=== PATIENT | male | born 1975 | race African-American/Black ===

== ENCOUNTER → 2020-08-14 09:48 | Outpatient (BNVA) | payer OTHER, SELFPAY | PROVIDERS: PCP Internal Medicine; Visit Provider Surgery | DX: Z48.3 Aftercare following surgery for neoplasm (principal); C34.11 Malignant neoplasm of upper lobe, right bronchus or lung | CPT/HCPCS: 99212 ==

== ENCOUNTER 2020-08-19 17:10 | Emergency (ER) | payer OTHER, SELFPAY ==
[2020-08-19 19:37] VITALS: BP 128/72; PULSE 81; RESP 18; TEMP 37.2; O2SAT 100; BMI 21.9
--- NOTE | 2020-08-19 21:00 | CT_ITS ---
EXAMINATION: CT HEAD WITHOUT CONTRAST CLINICAL INFORMATION: Right face and arm numbness. Status post lobectomy for lung cancer COMPARISON: CT head 07/14/2015 TECHNIQUE: Contiguous axial imaging was performed from the skull base to vertex without intravenous administration of contrast. Coronal and sagittal reformatted images are performed at the CT scanner This CT examination was performed using dose optimization techniques as appropriate, variously including the following: *Automated exposure control *Adjustment of mA and/or kV according to patient size (this includes techniques or standardized protocols for targeted exams where dose is matched to indication/reason for exam; i.e. extremities or head) *Use of iterative reconstruction technique DLP: 655 mGy-cm FINDINGS: There is no evidence of acute intracranial hemorrhage or territorial infarction. No abnormal mass effect or midline shift is seen. Segura to white matter differentiation is well preserved. No extra-axial fluid collections are identified. The ventricles are normal in size. There is no abnormal attenuation within the brain parenchyma. The osseous structures and soft tissues are normal. The mastoid air cells and visualized portions of the paranasal sinuses are well aerated. IMPRESSION: No acute intracranial pathology.
--- NOTE | 2020-08-19 21:04 | ED_ITS ---
HPI - General Adult General Chief complaint: General Medical Stated complaint: numbness Time Seen by Provider: 08/19/20 20:51 Source: patient Mode of arrival: ambulatory Limitations: no limitations History of Present Illness HPI narrative: Patient comes to the emergency room complaining of right-sided face numbness and right upper arm numbness. Patient states he notice that his face and arm were numb yesterday around noon. Patient states that the sensation on his face and arm and different than the rest of his body, no pain, No recent trauma. However, 3 weeks ago patient had a right lung lobectomy for a cancerous nodule. MD complaint: Numbness Onset (ago): day(s) Location: face and upper extremity Radiation: non-radiation Severity: moderate Relieving factors: none Associated symptoms: denies other symptoms Related Data Home Medications Medication Instructions Recorded Confirmed oxycodone 5 mg tablet 5 mg PO Q4H PRN 08/14/20 08/14/20 Allergies Allergy/AdvReac Type Severity Reaction Status Date / Time codeine AdvReac Intermediate PALPITATION Unverified 07/23/20 16:55 [From TYLENOL-CODEINE #3] S tramadol [TRAMADOL] AdvReac Intermediate PALPITATION Unverified 07/23/20 16:55 /SHAKINESS Review of Systems Review of Systems: Constitutional : No Weight loss, No Fever, No Chills, No Night Sweats, No Fatigue, No Malaise ENT/Mouth : No Hearing loss, No Ear Pain, No Nasal Congestion, No Sinus Pain, No Hoarseness, No sore throat, No Rhinorrhea, No Swallowing Difficulty Eyes: No Eye Pain, No Swelling, No Redness, No Foreign Body, No Discharge, No Vision Changes Cardiovascular : No Chest Pain, No SOB, No Dyspnea on Exertion, No Orthopnea, No Edema, No Palpitations Respiratory : No Cough, No Sputum, No Wheezing, No Smoke Exposure, No Dyspnea Gastrointestinal : No Nausea, No Vomiting, No Diarrhea, No Constipation, No abdominal Pain, No Hematochezia, No Melena Genitourinary : no irregular bleeding, No Dysuria, No Urinary Frequency, No Hematuria, No Urinary Incontinence, No Urgency, No Flank Pain, No Urinary Flow Changes, No Hesitancy Musculoskeletal : No joint pain, No Myalgias, No Joint Swelling Skin : No Skin Lesions, No rash Neuro : No Weakness, complaining of numbness, decreased sensation in right side of the face, right upper arm from neck to elbow, and right-sided chest, No Loss of Consciousness, No Dizziness, No Headache. Psych : No Anxiety/Panic, No Depression, No SI/HI/AH/VH, No Social Issues, Heme/Lymph: No Bruising, No Bleeding,No Lymphadenopathy Endocrine : No Polyuria, No Polydipsia, No Temperature Intolerance PMFSH Past Medical History Medical History Anxiety Back pain Injury of quadriceps tendon Pulmonary nodule Smoker Surgical History History of lumbar surgery History of surgical removal of lesion Family History Family History Father No problems noted. Mother Hypertension Hyperlipidemia Asthma Stroke Osteoporosis Social History Social History Smoking Status: Former smoker Tobacco Type: Cigarette Advance Directives: No Advance Directives Information Provided: No Physical Exam Vital Signs: Vital Signs: Vital Signs Temp Pulse Resp BP Pulse Ox 08/19/20 21:23 68 18 102/68 99 08/19/20 19:37 99.0 F 81 18 128/72 100 Body Mass Index 21.9 Appearance: Alert. Oriented X3. No acute distress. Eyes: Pupils equal, round and reactive to light. ENT: Pharynx normal. Neck: Normal inspection. Neck supple. No lymph nodes noted. No crepitus CVS: Normal heart rate and rhythm. Pulses normal. Normal S1 and S2 Respiratory: No respiratory distress. Breath sounds normal. No Wheezing. No rales Abdomen: Soft and nontender. No rigidity. No distention. good BS x4 Skin: Skin warm and dry. Normal skin color. Normal skin turgor. Extremities: No lower extremity edema. No lower extremity edema. No Lacerations. No Rash. Strength at 5/5 in upper and lower extremities bilaterally Neuro: Oriented X 3. No motor deficit. No sensory deficit. Moving all extermities. No slurred speech. Course Reevaluation(s) Reevaluation #1: patient continues having mild numbness in the above-mentioned areas, no worsening symptoms Medical Decision Making MDM Narrative Medical decision making narrative: I discussed with the patient that it is possible that his symptoms may be related to the thoracic surgery he had further lobectomy. At this time, CVA is not suspected. Patient's INRs score is 0, CT scan did not show any pathology that would indicate a CVA. I discussed with the patient, that if he continues having numbness tingling, patient may need a myelogram Lab Data Result diagrams: 08/19/20 21:27 08/19/20 21:27 Labs: Lab Results 08/19/20 08/19/20 08/19/20 Range/Units 21:27 21: 21:27 WBC 5.8 (4.8-10.8) X10*3/uL RBC 4.30 L (4.60-5.80) X10*6/uL Hgb 12.9 L (14.0-18.0) g/dl Hct 39.4 L (42-52) % MCV 91.6 (80-98) fL MCH 30.0 (27.0-33.0) pg MCHC 32.7 (31.0-36.0) g/dl RDW 13.2 (11.0-16.0) % Plt Count 480 H (160-400) X10*3/uL MPV 8.2 L (9.4-12.4) fL Immature Gran % (Auto) 0.2 (0.0-0.4) % Neut % (Auto) 46.4 (45-73) % Lymph % (Auto) 36.7 (20-40) % [place] % (Auto) 9.7 (2-11) % Eos % (Auto) 6.1 H (0-4) % Baso % (Auto) 0.9 (0-2) % Lymph # (Auto) 2.1 (1.2-4.9) X10*3/uL [place] # (Auto) 0.6 (0.1-1.2) X10*3/uL Eos # (Auto) 0.4 (0.0-0.4) X10*3/uL Baso # (Auto) 0.1 (0.0-0.2) X10*3/uL Abs Immat Gran (auto) 0.01 (0.00-0.03) X10*3/uL Absolute Neuts (auto) 2.7 (2.0-8.3) X10*3/uL Absolute Nucleated RBC 0.000 (0.0-0.012) X10*3/uL Nucleated RBC % (auto) 0.0 (0.0-0.2) /100WBC Sodium 140 (135-145) mmol/L Potassium 4.9 (3.3-5.1) mmol/l Chloride 101 (96-108) mmol/L Carbon Dioxide 34 H (22-29) mmol/L Anion Gap 10 L (12-20) BUN 13 (9-16) mg/dL Creatinine 0.83 (0.5-1.4) mg/dL Estim Creat Clear Calc 103.0 Estimated GFR > 60 Random Glucose 84 (60-115) mg/dL Calcium 9.3 (8.4-10.2) mg/dL Magnesium 2.1 (1.6-2.6) mg/dL Total Bilirubin 0.2 (0.0-1.0) mg/dL Direct Bilirubin < 0.2 (0.0-0.5) mg/dL AST 34 (5-37) U/L ALT 59 H (0-40) U/L Alkaline Phosphatase 71 (39-117) U/L Total Protein 7.2 (6.5-8.0) g/dL Albumin 3.9 (3.5-5.0) g/dL Imaging Data CT scan - head: Radiologist's impression: There is no evidence of acute intracranial hemo rrhage or territorial infarction. No abnormal mass effect or midline shift is seen. Segura to white matter differentiation is well preserved. No extra-axial fluid collections are identified. The ventricles are normal in size. There is no abnormal attenuation within the brain parenchyma. The osseous structures and soft tissues are normal. The mastoid air cells and visualized portions of the paranasal sinuses are well aerated Discharge Plan Discharge Clinical Impression: Arm paresthesia, right, Facial paresthesia Patient Disposition: Home, Self-Care Instructions: Paresthesia (ED) Additional Instructions: Please follow-up with your primary care physician tomorrow. If you have any worsening or new symptoms, please return to the emergency room or call 911 Prescriptions: No Action oxycodone 5 mg tablet 5 mg PO Q4H PRN (Reason: pain) RF: 0
[2020-08-19 21:23] VITALS: BP 102/68; PULSE 68; RESP 18; O2SAT 99
[2020-08-19 21:32] LABS: MANUAL DIFF FLAG NO
[2020-08-19 21:34] LABS: Basophils Absolute Auto 0.1 X10*3/uL (0.0-0.2); Basophils Percent Auto 0.9 % (0-2); Eosinophils Absolute Auto 0.4 X10*3/uL (0.0-0.4); Eosinophils Percent Auto 6.1 % (0-4); Hematocrit 39.4 % (42-52); Hemoglobin 12.9 g/dl (14.0-18.0); Imm Gran Abs Auto 0.01 X10*3/uL (0.00-0.03); Imm Gran Pct Auto 0.2 % (0.0-0.4); Lymphocytes Absolute Auto 2.1 X10*3/uL (1.2-4.9); Lymphocytes Percent Auto 36.7 % (20-40); Mean Corpuscular HGB Conc 32.7 g/dl (31.0-36.0); Mean Corpuscular Volume 91.6 fL (80-98); Mean Platelet Volume 8.2 fL (9.4-12.4); Monocytes Absolute Auto 0.6 X10*3/uL (0.1-1.2); Monocytes Percent Auto 9.7 % (2-11); Neutrophils Absolute Auto 2.7 X10*3/uL (2.0-8.3); Neutrophils Percent Auto 46.4 % (45-73); Platelet Count 480 X10*3/uL (160-400); Red Cell Distribution Width 13.2 % (11.0-16.0); White Blood Count 5.8 X10*3/uL (4.8-10.8)
[2020-08-19] MEDS: oxyCODONE HCl ER 10 MG TAB.ER.12H PO (21:35)
--- NOTE | 2020-08-19 21:35 | PC.NURSE ---
management tech at bedside to obtain labs. Pt medicated with Oxy per EMAR, pt reporting 8/10 pain to right side due to recent surgery to remove 1/2 of right lung. Aware of plan to await lab results.
[2020-08-19 22:05] LABS: Magnesium 2.1 mg/dL (1.6-2.6)
[2020-08-19 22:07] LABS: Alanine Aminotransferase 59 U/L (0-40); Albumin Level 3.9 g/dL (3.5-5.0); Alkaline Phosphatase 71 U/L (39-117); Anion Gap 10 (12-20); Aspartate Amino Transferase 34 U/L (5-37); Bilirubin Direct < 0.2 mg/dL (0.0-0.5); Bilirubin Total 0.2 mg/dL (0.0-1.0); Blood Urea Nitrogen 13 mg/dL (9-16); Calcium 9.3 mg/dL (8.4-10.2); Carbon Dioxide 34 mmol/L (22-29); Chloride 101 mmol/L (96-108); Estimated Glomerular Filt Rate > 60; Glucose Random 84 mg/dL (60-115); Potassium 4.9 mmol/l (3.3-5.1); Sodium 140 mmol/L (135-145); Total Protein 7.2 g/dL (6.5-8.0)
[2020-08-19 23:12] VITALS: BP 113/73; PULSE 75; RESP 16
== END 2020-08-19 23:18 | disposition home or self-care (01) ==
PROVIDERS: Emergency Provider Emergency Medicine; PCP Internal Medicine
DX: R20.2 Paresthesia of skin (principal); I10 Essential (primary) hypertension; Z86.73 Personal history of transient ischemic attack (TIA), and cerebral infarction without residual deficits; Z79.899 Other long term (current) drug therapy; Z87.891 Personal history of nicotine dependence
CPT/HCPCS: 36415; 70450; 80048; 80076; 83735; 85025; 99284

== ENCOUNTER 2020-08-28 09:54 | Outpatient (REF) | payer OTHER, SELFPAY ==
--- NOTE | 2020-08-28 10:07 | XR_ITS ---
EXAMINATION: XR CHEST CLINICAL INFORMATION: Malignant neoplasm upper lobe. COMPARISON: CT chest of June 02, 2020 and chest x-ray of April 28, 2019 TECHNIQUE: 2 views of the chest were obtained. FINDINGS: Since previous study patient is status post right lung surgery with suture line in place about the mediastinum and superior chest. There is some elevation of the right hilum. No pneumothorax or pleural effusion. Heart normal size. No evidence of pulmonary edema. XR/XR chest 2V IMPRESSION: Right upper lobe surgery with postoperative change. No acute disease.
== END 2020-08-28 09:55 | disposition home or self-care (01) ==
LOC: HO.XRAY 09:54
PROVIDERS: PCP Internal Medicine; Visit Provider Surgery
DX: C34.11 Malignant neoplasm of upper lobe, right bronchus or lung (principal); M79.2 Neuralgia and neuritis, unspecified
CPT/HCPCS: 71046; 99212

== ENCOUNTER 2020-11-17 08:40 | Outpatient (REF) | payer OTHER, SELFPAY ==
--- NOTE | 2020-11-17 08:56 | XR_ITS ---
EXAMINATION: XR KNEE, LEFT CLINICAL INFORMATION: Left knee pain. COMPARISON: Left knee radiographs dated 11/23/2015. TECHNIQUE: AP weightbearing view of the right and left knee as well as lateral and sunrise views of the left knee. FINDINGS: Minimal medial compartment joint space narrowing. Tiny patellofemoral marginal osteophytes. No osseous erosion. No fracture or dislocation. No significant joint effusion. No abnormal soft tissue calcification. XR/XR knee LT 3V IMPRESSION: Minimal medial and patellofemoral compartment arthrosis.
== END 2020-11-17 08:41 | disposition home or self-care (01) ==
LOC: HO.HOSX 08:40
PROVIDERS: PCP Internal Medicine; Visit Provider Orthopaedic Surgery
DX: M25.562 Pain in left knee (principal); M22.2X2 Patellofemoral disorders, left knee
CPT/HCPCS: 73562; 99202

== ENCOUNTER 2021-01-12 09:10 | Outpatient (REF) | payer OTHER, SELFPAY ==
--- NOTE | ~2021-01-12 | CT_ITS ---
EXAMINATION: CT CHEST WITHOUT CONTRAST CLINICAL INFORMATION: Malignant neoplasm of right upper lobe. COMPARISON: 06/02/[address] scan. Chest radiographs dated 08/28/2020. TECHNIQUE: Multidetector volumetric CT imaging of the chest was done. Axial MIP volume rendering provided. Sagittal and coronal reformatted images were obtained. This CT examination was performed using dose optimization techniques as appropriate, variously including the following: *Automated exposure control *Adjustment of mA and/or kV according to patient size (this includes techniques or standardized protocols for targeted exams where dose is matched to indication/reason for exam; i.e. extremities or head) *Use of iterative reconstruction technique DLP: 139 mGy-cm FINDINGS: LUNGS/PLEURA/AIRWAYS: Right upper lobectomy postsurgical changes are seen. The previously seen irregular lesion in the anterior right upper lobe has been removed. Changes extend to the right hilum without surrounding abnormality. No significant new or suspicious pulmonary nodules seen. Mild left apical scarring is seen. There are no pleural effusions. The airways are patent. MEDIASTINUM: The thyroid gland is unremarkable. The thoracic aorta is within normal limits. No coronary artery calcifications. No pericardial effusion. No mediastinal or hilar lymphadenopathy. Postsurgical changes are seen in the right hilum. AXILLA: No lymphadenopathy. UPPER ABDOMEN: Unremarkable. OSSEOUS STRUCTURES: Unremarkable. CT/CT chest wo con IMPRESSION: Postsurgical changes in the right lung without evidence for residual/recurrent disease. CT follow-up is recommended as per protocol.
== END 2021-01-12 09:11 | disposition home or self-care (01) ==
LOC: HO.CT 09:10
PROVIDERS: Visit Provider Surgery
DX: C34.11 Malignant neoplasm of upper lobe, right bronchus or lung (principal)
CPT/HCPCS: 71250

== ENCOUNTER 2021-02-09 10:56 | Emergency (ER) | payer OTHER, SELFPAY ==
--- NOTE | 2021-02-09 | ECG_ITS ---
Test Reason : CP Blood Pressure : / mmHG Vent. Rate : 078 BPM Atrial Rate : 078 BPM P-R Int : 180 ms QRS Dur : 086 ms QT Int : 350 ms P-R-T Axes : 072 058 058 degrees QTc Int : 399 ms Normal sinus rhythm Normal ECG When compared with ECG of 04-NOV-2019 15:31, No significant change was found Referred By: Mikaela Martínez Electronically Signed By:AMY BRISCOE MD
--- NOTE | ~2021-02-09 | CT_ITS ---
EXAMINATION: CT ABDOMEN AND PELVIS WITH CONTRAST CLINICAL INFORMATION: Abdominal pain. History of cancer. Evaluate for metastatic disease. COMPARISON: Previous CT of the abdomen and pelvis October 2019 TECHNIQUE: Multidetector volumetric images were obtained from the superior aspect of the liver through the pubic symphysis following administration 85 mL of Omnipaque 350 intravenous contrast. Sagittal and coronal reformatted images were obtained on the technologist's workstation. Oral contrast: Yes This CT examination was performed using dose optimization techniques as appropriate, variously including the following: *Automated exposure control *Adjustment of mA and/or kV according to patient size (this includes techniques or standardized protocols for targeted exams where dose is matched to indication/reason for exam; i.e. extremities or head) *Use of iterative reconstruction technique DLP: 256 mGy-cm FINDINGS: LIVER, GALLBLADDER, AND BILIARY TREE: The liver is normal in size, shape, and attenuation. No focal hepatic lesion or biliary ductal dilatation is present. The gallbladder is unremarkable with no evidence of radiopaque gallstones, gallbladder wall thickening, or obvious pericholecystic inflammatory changes. PANCREAS: Unremarkable. SPLEEN: Unremarkable. ADRENAL GLANDS: Unremarkable. KIDNEYS AND URETERS: The kidneys are normal in size, shape, and attenuation. No hydronephrosis, hydroureter, or calculi seen. No perinephric stranding. BLADDER: Unremarkable. GASTROINTESTINAL TRACT: The small and large bowel are unremarkable. The appendix is unremarkable. ABDOMINAL WALL: No significant hernia is appreciated. LYMPH NODES: Normal. VASCULAR: Unremarkable. PELVIC VISCERA: Unremarkable. OSSEOUS STRUCTURES: There are postsurgical changes at the L5-S1 disc space. There is degenerative disc disease at L3-L4. CT/CT abdomen pelvis w con IMPRESSION: Unremarkable exam.
--- NOTE | ~2021-02-09 | CT_ITS ---
EXAMINATION: CT ANGIOGRAM OF THE CHEST WITH AND WITHOUT CONTRAST (CT PULMONARY ANGIOGRAM FOR PE) CLINICAL INFORMATION: Reason for Exam R chest pain/SOB/ho CA, r/o PE COMPARISON: Previous chest CT most recent January 2021 TECHNIQUE: Prior to contrast administration, noncontrast localization images were obtained. Subsequently, multidetector volumetric imaging was performed from the thoracic inlet to below the diaphragms following the administration of 85 mL Omnipaque 350 intravenous contrast. No contrast reaction reported Sagittal, coronal, and MIP oblique sagittal reformatted images were obtained on the CT workstation, uploaded to PACS, and reviewed. This CT examination was performed using dose optimization techniques as appropriate, variously including the following: *Automated exposure control *Adjustment of mA and/or kV according to patient size (this includes techniques or standardized protocols for targeted exams where dose is matched to indication/reason for exam; i.e. extremities or head) *Use of iterative reconstruction technique Total exam dose-length product 255 mGy-cm FINDINGS: QUALITY OF STUDY/CONTRAST BOLUS: Satisfactory. PULMONARY ARTERIES: No central or segmental pulmonary emboli. THORACIC AORTA: No aneurysm or dissection. LUNG: No focal consolidation, nodules or masses. PLEURA: No pleural effusion or pneumothorax. MEDIASTINUM: Normal heart size. No pericardial effusion. No hilar or mediastinal lymphadenopathy. No evidence of septal bowing or right heart strain. CHEST WALL/AXILLA: No axillary or internal mammary lymphadenopathy. OSSEOUS STRUCTURES: No acute or suspicious osseous abnormality. UPPER ABDOMEN: Unremarkable. No reflux of contrast into the hepatic veins to suggest elevated right heart pressures. CT/CT angio chest PE protocol IMPRESSION: No evidence of pulmonary embolism. Postsurgical changes following right upper lobe lobectomy. VTE: negative
[2021-02-09 11:04] VITALS: BP 132/76; PULSE 78; RESP 24; TEMP 36.4; O2SAT 99; BMI 23.1
--- NOTE | 2021-02-09 11:20 | ED.GENADULT ---
HPI - General Adult General Chief complaint: General Medical Stated complaint: rt side abd & chest pain Time Seen by Provider: 02/09/21 11:09 Source: patient Mode of arrival: ambulatory Limitations: no limitations History of Present Illness HPI narrative: 45-year old male with a past medical history of lung cancer status post right upper lobe lobectomy July [address] Randhawa here with complaints of right chest wall pain and diffuse abdominal pain x2 weeks. The patient tells me that he has some dyspnea on exertion which seems to be worsened for him over the last few days. He denies any cough, leg swelling or pain. Denies nausea, vomiting, diarrhea, constipation, urinary symptoms, fevers or chills. Patient tells me that he has an appointment with Dr. Randhawa this Monday for follow-up to discuss his plan for further intervention and/or oncology treatment. Related Data Previous Rx's Medication Instructions Recorded gabapentin 300 mg capsule 300 mg PO TID 30 Days #90 cap 11/11/20 diclofenac sodium 75 mg 75 mg PO BID #60 tab 11/17/20 tablet,delayed release lidocaine [Lidoderm] 1 patch TOPICAL DAILY #15 ea 02/09/21 oxycodone 5 mg PO Q6H PRN #10 tab 02/09/21 Allergies Allergy/AdvReac Type Severity Reaction Status Date / Time codeine AdvReac Intermediate PALPITATION Verified 11/09/20 10:28 [From TYLENOL-CODEINE #3] S tramadol [TRAMADOL] AdvReac Intermediate PALPITATION Verified 11/09/20 10:28 /MICHAEL Review of Systems Review of Systems: Yes all other systems are reviewed and are negative Constitutional: Constitutional: Reports no additional constitutional complaints, Denies body ache(s), Denies chills, Denies fever(s), Denies headache(s) and Denies weakness Eyes: Eyes: Reports no additional eye complaints and Denies change in vision ENT: Reports system reviewed and no additional complaints, except as documented, Denies dizziness, Denies headache(s), Denies nasal congestion, Denies nasal discharge and Denies neck pain Cardiovascular: Cardiovascular: Reports no additional cardiovascular complaints, Reports chest pain, Denies leg edema, Denies dyspnea and Reports dyspnea on exertion Respiratory: Respiratory: Reports no additional respiratory complaints, Denies cough, Denies dyspnea and Reports dyspnea on exertion Gastrointestinal: Gastrointestinal: Reports no additional gastrointestinal complaints, Reports abdominal pain, Denies diarrhea, Denies nausea and Denies vomiting Genitourinary: Genitourinary: Denies urinary incontinence Musculoskeletal: Musculoskeletal: Reports no additional musculoskeletal complaints, Denies back pain, Denies arthralgias, Denies joint swelling, Denies neck pain, Denies numbness and Denies tingling Integumentary/Breasts: Skin/Breast: Reports system reviewed and no additional complaints, except as docu and Denies rash Neurologic: Reports system reviewed and no additional complaints, except as documented, Denies Abnormal speech present, Denies dizziness, Denies headache(s), Denies numbness, Denies tingling and Denies weakness PMFSH Past Medical History Attestation statement: The following information was validated with the patient. Source: old records reviewed Medical History Anxiety Back pain Injury of quadriceps tendon Left knee pain Lumbar degenerative disc disease Pulmonary nodule Smoker Surgical History History of lumbar surgery History of surgical removal of lesion Family History Family History Father No problems noted. Mother Hypertension Hyperlipidemia Asthma Stroke Osteoporosis Social History Social History Smoking Status: Former smoker Tobacco Type: Cigarette Advance Directives: No Advance Directives Information Provided: No Current occupational status: unemployed Current occupation: Right Handed Physical Exam Vital Signs: Vital Signs: Last Vital Signs Temp 97.6 F 02/09/21 11:04 Pulse 76 02/09/21 13:20 Resp 23 H 02/09/21 13:20 BP 113/79 02/09/21 13:20 Pulse Ox 100 02/09/21 13:20 Body Mass Index 23.1 Const: General: cooperative, healthy appearing, comfortable and no acute distress Orientation/consciousness: patient oriented x3 Limitations: no limitations HENMT: Head: Yes normal to inspection Ears: hearing grossly normal bilaterally General nose exam: Normal external nose present Face and sinus: Yes normal facial exam Mouth: Normal oral and palatal mucosa present Throat: Yes posterior oropharynx normal Eyes: General: appearance normal, both eyes and all related structures Pupils: Equal, round and reactive pupils present Neck: Neck: Yes normal visual inspection Chest: Other: Healed surgical incision sites noted to the right chest wall. There is some local tenderness over the right lateral ribs. No ecchymosis, crepitus or deformity. Chest palpation & inspection: normal inspection of the chest Resp: Effort & Inspection: normal respiratory effort Auscultation: clear to auscultation bilaterally Cardio: Rate: regular rate Rhythm: regular rhythm Peripheral pulses: Peripheral pulses 2+ throughout GI: Inspection: Yes normal to inspection Palpation (GI): Soft to palpation and Tenderness to palpation present (GI) (Moderate diffuse tenderness right greater than left) Auscultation: normal bowel sounds Back/Spine/Pelvis: Thoracic/Lumbar Spine: thoracic and lumbar spine normal to inspection Skin: General skin exam: no rashes or lesions noted Neuro: General: patient oriented x3, no focal motor deficits and normal sensation to monofilament Cranial nerves: Yes Equal, round and reactive pupils present Cognition (Neuro): normal cognition Speech: No Abnormal speech present Gait exam (Neuro): Normal gait present Motor exam (neuro): 5/5 motor strength present throughout Extrem: General: Yes normal to inspection Course Course Course Narrative: 45-year-old male with a past history of lung cancer status post lobectomy here with right-sided chest wall pain and diffuse abdominal pain times several weeks with associated dyspnea with exertion. On exam the patient has some mild tachypnea respiratory rate 24 but stable saturations and clear lung sounds. Is diffusely tender in the abdomen although it is soft. Will check labs, UA, COVID screen, CT abdomen/chest. 1530-imaging unremarkable. Was unable to provide a urine sample who is here in the emergency department. COVID screen negative. Labs unremarkable. Patient does report some mild discomfort still when I went to speak to him. On review of chart it looks like he has had chronic pain status post surgery which was thought to be secondary to nerve pain. He tells me he is taking Neurontin 300 mg 3 times a day for the pain but continues to have symptoms. He has a follow-up appointment with Dr. Randhawa this Monday. He is very tearful and concerned about this upcoming appointment as they will go over his biopsy results and determine if he needs to have any further intervention or oncology. He tells me his very overwhelmed at home trying to be strong and tough at home. He tells me he lost both a cousin and uncle in the last year to lung cancer and he is concerned this will be his prognosis. Provided patient re-assurance. We discussed short course of pain medications, topical patchs. Reviewed worrisome signs and symptoms and when to return to the emergency department. Comfortable discharge home. Medical Decision Making MDM Narrative Medical decision making narrative: PE, pneumonia, bridgett, appy Medical Records Medical records reviewed: Yes I reviewed the patient's medical records. Lab Data Lab results reviewed: Yes I reviewed the patient's lab results. Result diagrams: 02/09/21 11:28 02/09/21 11:28 Labs: Lab Results 02/09/21 02/09/21 02/09/21 Range/Units 11:27 11:28 11:28 WBC 5.3 (4.8-10.8) X10*3/uL RBC 4.82 (4.60-5.80) X10*6/uL Hgb 14.2 (14.0-18.0) g/dl Hct 43.5 (42-52) % MCV 90.2 (80-98) fL MCH 29.5 (27.0-33.0) pg MCHC 32.6 (31.0-36.0) g/dl RDW 13.3 (11.0-16.0) % Plt Count 373 (160-400) X10*3/uL MPV 9.0 L (9.4-12.4) fL Immature Gran % (Auto) 0.0 (0.0-0.4) % Neut % (Auto) 51.0 (45-73) % Lymph % (Auto) 30.5 (20-40) % [place] % (Auto) 14.7 H (2-11) % Eos % (Auto) 3.0 (0-4) % Baso % (Auto) 0.8 (0-2) % Lymph # (Auto) 1.6 (1.2-4.9) X10*3/uL [place] # (Auto) 0.8 (0.1-1.2) X10*3/uL Eos # (Auto) 0.2 (0.0-0.4) X10*3/uL Baso # (Auto) 0.0 (0.0-0.2) X10*3/uL Abs Immat Gran (auto) 0.00 (0.00-0.03) X10*3/uL Absolute Neuts (auto) 2.7 (2.0-8.3) X10*3/uL Absolute Nucleated RBC 0.000 (0.0-0.012) X10*3/uL Nucleated RBC % (auto) 0.0 (0.0-0.2) /100WBC PT (10.8-13.0) SEC INR (0.9-1.1) Sodium 140 (135-145) mmol/L Potassium 4.5 (3.3-5.1) mmol/L Chloride 107 (96-108) mmol/L Carbon Dioxide 26 (22-29) mmol/L Anion Gap 12 (12-20) BUN 13 (9-16) mg/dL Creatinine 0.85 (0.5-1.4) mg/dL Estim Creat Clear Calc 103.9 Estimated GFR > 60 Random Glucose 105 (60-115) mg/dL Calcium 9.0 (8.4-10.2) mg/dL Magnesium 2.2 (1.6-2.6) mg/dL Total Bilirubin 0.6 (0.0-1.0) mg/dL Direct Bilirubin 0.2 (0.0-0.5) mg/dL AST 26 (5-37) U/L ALT 45 H (0-40) U/L Alkaline Phosphatase 61 (39-117) U/L Troponin I High Sens (<3.5-35.0) ng/L Total Protein 7.2 (6.5-8.0) g/dL Albumin 4.1 (3.5-5.0) g/dL COVID-19 ([place]) Negative (Negative) COVID-19 Clin Com See Note 02/09/21 02/09/21 Range/Units 11:28 11:28 WBC (4.8-10.8) X10*3/uL RBC (4.60-5.80) X10*6/uL Hgb (14.0-18.0) g/dl Hct (42-52) % MCV (80-98) fL MCH (27.0-33.0) pg MCHC (31.0-36.0) g/dl RDW (11.0-16.0) % Plt Count (160-400) X10*3/uL MPV (9.4-12.4) fL Immature Gran % (Auto) (0.0-0.4) % Neut % (Auto) (45-73) % Lymph % (Auto) (20-40) % [place] % (Auto) (2-11) % Eos % (Auto) (0-4) % Baso % (Auto) (0-2) % Lymph # (Auto) (1.2-4.9) X10*3/uL [place] # (Auto) (0.1-1.2) X10*3/uL Eos # (Auto) (0.0-0.4) X10*3/uL Baso # (Auto) (0.0-0.2) X10*3/uL Abs Immat Gran (auto) (0.00-0.03) X10*3/uL Absolute Neuts (auto) (2.0-8.3) X10*3/uL Absolute Nucleated RBC (0.0-0.012) X10*3/uL Nucleated RBC % (auto) (0.0-0.2) /100WBC PT 12.6 (10.8-13.0) SEC INR 1.1 (0.9-1.1) Sodium (135-145) mmol/L Potassium (3.3-5.1) mmol/L Chloride (96-108) mmol/L Carbon Dioxide (22-29) mmol/L Anion Gap (12-20) BUN (9-16) mg/dL Creatinine (0.5-1.4) mg/dL Estim Creat Clear Calc Estimated GFR Random Glucose (60-115) mg/dL Calcium (8.4-10.2) mg/dL Magnesium (1.6-2.6) mg/dL Total Bilirubin (0.0-1.0) mg/dL Direct Bilirubin (0.0-0.5) mg/dL AST (5-37) U/L ALT (0-40) U/L Alkaline Phosphatase (39-117) U/L Troponin I High Sens < 3.5 (<3.5-35.0) ng/L Total Protein (6.5-8.0) g/dL Albumin (3.5-5.0) g/dL COVID-19 ([place]) (Negative) COVID-19 Clin Com Imaging Data cta chest: Attestation: I personally reviewed and interpreted this imaging study as follows: Radiologist's impression: IMPRESSION: No evidence of pulmonary embolism. Postsurgical changes following right upper lobe lobectomy. CT scan - abdomen: Attestation: I personally reviewed and interpreted this imaging study as follows: Radiologist's impression: CT/CT abdomen pelvis w con IMPRESSION: Unremarkable exam. ECG Data Attestation: I personally reviewed and interpreted this ECG as follows: Interpretation: NSR with rate 78, normal pr, normal qrs, normal qtc Discharge Plan Discharge Clinical Impression: Chest wall pain Patient Disposition: Home, Self-Care Instructions: Chest Wall Pain (ED) Additional Instructions: Keep your appointment on Monday to see the surgeon Prescriptions: New oxycodone 5 mg tablet 5 mg PO Q6H PRN (Reason: pain) Qty: 10 RF: 0 lidocaine [Lidoderm] 5 % adhesive patch,medicated 1 patch topical DAILY Qty: 15 RF: 0 No Action gabapentin 300 mg capsule 300 mg PO TID 30 Days Qty: 90 RF: 3 diclofenac sodium 75 mg tablet,delayed release (DR/EC) 75 mg PO BID Qty: 60 RF: 2 Referrals: Cam Chao MD [Primary Care Provider] - 2 days Interventions: ED Discharge Assessment Last Done: 02/09/21 15:28 Discharge Date/Time: 02/09/21 15:28
[2021-02-09 11:31] LABS: MANUAL DIFF FLAG NO
[2021-02-09] MEDS: Morphine Sulfate 4 MG/ML CARTRIDGE IVPUSH (11:31)
[2021-02-09 11:32] VITALS: BP 111/77; PULSE 82; RESP 25; O2SAT 99
[2021-02-09 11:36] LABS: Basophils Percent Auto 0.8 % (0-2); Eosinophils Absolute Auto 0.2 X10*3/uL (0.0-0.4); Hematocrit 43.5 % (42-52); Hemoglobin 14.2 g/dl (14.0-18.0); Lymphocytes Absolute Auto 1.6 X10*3/uL (1.2-4.9); Lymphocytes Percent Auto 30.5 % (20-40); Mean Corpuscular HGB Conc 32.6 g/dl (31.0-36.0); Mean Corpuscular Hemoglobin 29.5 pg (27.0-33.0); Mean Corpuscular Volume 90.2 fL (80-98); Monocytes Absolute Auto 0.8 X10*3/uL (0.1-1.2); Monocytes Percent Auto 14.7 % (2-11); Neutrophils Absolute Auto 2.7 X10*3/uL (2.0-8.3); Platelet Count 373 X10*3/uL (160-400); Red Blood Count 4.82 X10*6/uL (4.60-5.80); Red Cell Distribution Width 13.3 % (11.0-16.0); White Blood Count 5.3 X10*3/uL (4.8-10.8)
[2021-02-09 11:44] LABS: INTERNATIONAL NORM RATIO 1.1 (0.9-1.1); Prothrombin Time 12.6 SEC (10.8-13.0)
[2021-02-09 11:51] VITALS: BP 114/74; PULSE 85; O2SAT 98
[2021-02-09 11:58] LABS: COVID-19 Test Negative (Negative); IDNOW Serial# 9DD0AD1C
[2021-02-09 12:04] LABS: Alanine Aminotransferase 45 U/L (0-40); Albumin Level 4.1 g/dL (3.5-5.0); Alkaline Phosphatase 61 U/L (39-117); Anion Gap 12 (12-20); Aspartate Amino Transferase 26 U/L (5-37); Bilirubin Direct 0.2 mg/dL (0.0-0.5); Bilirubin Total 0.6 mg/dL (0.0-1.0); Blood Urea Nitrogen 13 mg/dL (9-16); Carbon Dioxide 26 mmol/L (22-29); Chloride 107 mmol/L (96-108); Creatinine Clr Calc Pharmacy 103.9; Estimated Glomerular Filt Rate > 60; Glucose Random 105 mg/dL (60-115); Magnesium 2.2 mg/dL (1.6-2.6); Potassium 4.5 mmol/L (3.3-5.1); Sodium 140 mmol/L (135-145); Total Protein 7.2 g/dL (6.5-8.0)
[2021-02-09 12:10] LABS: Troponin-I High Sensitivity < 3.5 ng/L (<3.5-35.0)
[2021-02-09] MEDS: Ketorolac Tromethamine 30 MG/ML VIAL IVPUSH (13:19)
[2021-02-09 13:20] VITALS: BP 113/79; PULSE 76; RESP 23; O2SAT 100
[2021-02-09] MEDS: iohexoL 350 MG/ML 100 ML INFUS..BTL IV (14:15)
== END 2021-02-09 15:28 | disposition home or self-care (01) ==
PROVIDERS: Nurse Practitioner Family; Emergency Provider Emergency Medicine; PCP Internal Medicine
DX: R07.2 Precordial pain (principal); R10.9 Unspecified abdominal pain; F17.210 Nicotine dependence, cigarettes, uncomplicated; Z20.822 Contact with and (suspected) exposure to COVID-19; Z79.899 Other long term (current) drug therapy; Z71.6 Tobacco abuse counseling
CPT/HCPCS: 36415; 71275; 74177; 80048; 80076; 83735; 84484; 85025; 85610; 87635; 93005; 96361; 96365; 96375; 99284; J1885; J2270; Q9967

== ENCOUNTER → 2021-02-12 10:51 | Outpatient (BNVA) | payer OTHER, SELFPAY | PROVIDERS: PCP Internal Medicine; Visit Provider Surgery | DX: C34.11 Malignant neoplasm of upper lobe, right bronchus or lung (principal); M79.2 Neuralgia and neuritis, unspecified; Z79.899 Other long term (current) drug therapy | CPT/HCPCS: 99212 ==

== ENCOUNTER 2021-04-06 08:34 | Emergency (ER) | payer OTHER, SELFPAY ==
--- NOTE | ~2021-04-06 | XR_ITS ---
EXAMINATION: XR ELBOW, RIGHT CLINICAL INFORMATION: Pain COMPARISON: None TECHNIQUE: AP, lateral, and oblique views of the right elbow. FINDINGS: Bony mineralization is normal. There is no fracture, dislocation, destructive process, or elbow capsular effusion. There is no joint narrowing or erosive change or chondrocalcinosis. There is a borderline spur olecranon without overlying soft tissue swelling. Faint punctate mineralization is present adjacent to the medial epicondyle which may related to focus calcific tendinosis. Clinically correlate. XR/XR elbow RT min 3V IMPRESSION: 1. Borderline olecranon spur. 2. Faint punctate mineralization adjacent to medial epicondyle could be related to bulky calcific tendinosis. Clinically correlate.
[2021-04-06 08:59] VITALS: BP 126/81; PULSE 88; RESP 14; TEMP 37.1; O2SAT 98; BMI 23.4
--- NOTE | 2021-04-06 09:18 | ED.EXTPRO ---
HPI - Extremity Problem General Chief complaint: Extremity Injury, Upper Stated complaint: rt elbow pain Time Seen by Provider: 04/06/21 08:48 History of Present Illness HPI Narrative: Patient complains of right elbow pain worse with certain movements for 3 weeks he may have injured it when he accidentally banged it against a wall in picking something up but is not sure There is no numbness weakness or tingling, no fever and he has been able to continue working and doing all activities with some discomfort Related Data Previous Rx's Medication Instructions Recorded lidocaine [Lidoderm] 1 patch TOPICAL DAILY #15 ea 02/09/21 diclofenac sodium 75 mg 75 mg PO BID PRN 30 Days #60 tab 03/10/21 tablet,delayed release gabapentin 300 mg capsule 300 mg PO TID 30 Days #90 cap 03/10/21 oxycodone 5 mg tablet 5 mg PO Q6-8H PRN 5 Days #10 tab 03/10/21 Allergies Allergy/AdvReac Type Severity Reaction Status Date / Time codeine AdvReac Intermediate PALPITATION Verified 03/10/21 09:34 [From TYLENOL-CODEINE #3] S tramadol [TRAMADOL] AdvReac Intermediate PALPITATION Verified 03/10/21 09:34 /SHAKINESS Review of Systems Review of Systems: Positive for right elbow pain negatives are no fever no chills no dizziness no weakness no fainting no chest pain no shortness of breath no numbness weakness or tingling no skin rash Yes all other systems are reviewed and are negative PMFSH Past Medical History Source: nursing notes reviewed Medical History Anxiety Back pain Erectile dysfunction Injury of quadriceps tendon Left knee pain Lumbar degenerative disc disease Pulmonary nodule Smoker Surgical History History of lumbar surgery History of surgical removal of lesion Family History Family History Father No problems noted. Mother Hypertension Hyperlipidemia Asthma Stroke Osteoporosis Social History Social History Alcohol intake: former Current occupational status: unemployed Current occupation: Right Handed Physical Exam Vital Signs: Vital Signs: Last Vital Signs Temp 98.8 F 04/06/21 08:59 Pulse 88 04/06/21 08:59 Resp 14 04/06/21 08:59 BP 126/81 04/06/21 08:59 Pulse Ox 98 04/06/21 08:59 Body Mass Index 23.4 General appearance no distress Head is normocephalic atraumatic Neck is supple and nontender The respiratory no distress The extremities the right elbow has tenderness, no significant swelling, no redness no warmth and it has a full range of motion with some discomfort on full extension and rotation at the elbow joint Other extremities normal Skin no rashes Course Course Course Narrative: X-ray showed a small bone spur and a small calcium deposit, patient is advised to follow with orthopedist for further evaluation Discharge Plan Discharge Clinical Impression: Right elbow tendinitis Patient Disposition: Home, Self-Care Additional Instructions: Follow with orthopedist for further evaluation and possible steroid shot Return any worse condition or concerns Prescriptions: No Action lidocaine [Lidoderm] 5 % adhesive patch,medicated 1 patch topical DAILY Qty: 15 RF: 0 diclofenac sodium 75 mg tablet,delayed release (DR/EC) 75 mg PO BID PRN (Reason: pain) 30 Days Qty: 60 RF: 3 oxycodone 5 mg tablet 5 mg PO Q6-8H PRN (Reason: pain) 5 Days Qty: 10 RF: 0 gabapentin 300 mg capsule 300 mg PO TID 30 Days Qty: 90 RF: 3 Referrals: Kathy Cardenas MD [Physician] - 2 days (Right elbow tendinitis) Interventions: ED Discharge Assessment Last Done: 04/06/21 09:36 Discharge Date/Time: 04/06/21 09:38
== END 2021-04-06 09:38 | disposition home or self-care (01) ==
PROVIDERS: Emergency Provider Emergency Medicine; PCP Internal Medicine
DX: M25.521 Pain in right elbow (principal); M65.231 Calcific tendinitis, right forearm; Z79.899 Other long term (current) drug therapy
CPT/HCPCS: 73080; 99283

== ENCOUNTER 2021-04-19 07:22 | Outpatient (REF) | payer OTHER, SELFPAY ==
--- NOTE | ~2021-04-19 | XR_ITS ---
EXAMINATION: XR ELBOW, RIGHT CLINICAL INFORMATION: Elbow pain COMPARISON: Radiographs right elbow 04/06/2021 TECHNIQUE: AP, lateral, and oblique views of the right elbow. FINDINGS: There is no fracture, dislocation, or elbow capsular effusion. There is normal bony mineralization. The articular surfaces are intact and there is no joint narrowing or erosive change or chondrocalcinosis. Again, there is a punctate mineralization adjacent to the superior aspect medial epicondyle which may represent small focus calcific tendinosis. XR/XR elbow RT min 3V IMPRESSION: 1. Punctate mineralization adjacent to the medial epicondyle which may represent small focus calcific tendinosis. 2. No joint narrowing or erosive change. No effusion.
== END 2021-04-19 07:23 | disposition home or self-care (01) ==
LOC: HO.HOSX 07:22
PROVIDERS: Visit Provider Physician Assistant
DX: M25.821 Other specified joint disorders, right elbow (principal)
CPT/HCPCS: 73080; 99202

== ENCOUNTER → 2021-05-11 07:50 | Outpatient (BNVA) | payer OTHER, SELFPAY | PROVIDERS: PCP Internal Medicine; Visit Provider Orthopaedic Surgery | DX: M75.42 Impingement syndrome of left shoulder (principal) | CPT/HCPCS: 20610; 99212; J1040 ==

== ENCOUNTER 2021-06-30 09:26 | Outpatient (REF) | payer OTHER, SELFPAY ==
--- NOTE | 2021-06-30 09:30 | EMG_ITS ---
This is a 45-year-old man with a 2-year history of right elbow pain that has increased recently after a fall. PHYSICAL EXAMINATION: On examination, he is alert and oriented with normal intellectual functions. His muscle tone and strength are normal. He has exquisite tenderness in the conjoined tendon of the elbow on the right. IMPRESSION: Tendonitis of the elbow. Rule out nerve entrapment. Nerve conduction EMG study: Normal electrodiagnostic study of the right upper extremity with no evidence of carpal tunnel syndrome or nerve entrapment. Normal EMG of the right C5-T1 innervated muscles. MD MARCELLUS Serna/LINDSEY / [id number]
== END 2021-06-30 09:27 | disposition home or self-care (01) ==
LOC: HO.NEURO 09:26
PROVIDERS: PCP Internal Medicine; Visit Provider Physician Assistant
DX: M79.2 Neuralgia and neuritis, unspecified (principal); M25.521 Pain in right elbow
CPT/HCPCS: 95885; 95910

== ENCOUNTER 2021-07-02 07:46 | Outpatient (REF) | payer OTHER, SELFPAY | END 2021-07-02 07:47 | disposition home or self-care (01) | LOC: HO.LAB 07:46 | PROVIDERS: PCP Internal Medicine; Visit Provider Internal Medicine | DX: Z12.5 Encounter for screening for malignant neoplasm of prostate (principal) | CPT/HCPCS: 36415; 84153 ==

== ENCOUNTER 2021-07-29 09:36 | Outpatient (REF) | payer OTHER, SELFPAY ==
--- NOTE | ~2021-07-29 | CT_ITS ---
EXAMINATION: CT CHEST WITHOUT CONTRAST CLINICAL INFORMATION: Malignant neoplasm of right upper lobe bronchus. COMPARISON: CT chest PE protocol 02/09/2021. TECHNIQUE: Multidetector volumetric CT imaging of the chest was done. Axial MIP volume rendering provided. Sagittal and coronal reformatted images were obtained. This CT examination was performed using dose optimization techniques as appropriate, variously including the following: *Automated exposure control *Adjustment of mA and/or kV according to patient size (this includes techniques or standardized protocols for targeted exams where dose is matched to indication/reason for exam; i.e. extremities or head) *Use of iterative reconstruction technique DLP: 139 mGy-cm. FINDINGS: SPORTS DIRECTOR: Unremarkable. LUNGS: The lungs are well expanded and clear. There are postsurgical changes likely from wedge resection in the right upper lobe. There is a 2 mm nodular density along the major fissure axial image 168/4. Postsurgical scarring versus atelectasis in the right upper lung paramediastinal region adjacent to the mediastinal sutures is noted. MEDIASTINUM: The thyroid lobes are symmetrical and normal. The central trachea and the bronchi are widely patent. The heart size and the great vessels are normal caliber. No abnormal-sized mediastinal or hilar lymph nodes or mass seen. PLEURA: There is no pleural effusion. No pleural mass or thickening. AXILLA: There are small shotty lymph nodes in the axilla. UPPER ABDOMEN: Visualized liver, spleen, pancreas and bilateral adrenal glands are unremarkable. OSSEOUS STRUCTURES: No lytic or sclerotic lesions seen. There is mild ventral dorsal spine spondylosis. CT/CT chest wo con IMPRESSION: Postsurgical changes right upper lobe with loss of right lung volume. Nodular density in the right major fissure, likely small intrafissural lymph node. It is stable. No abnormal new lung nodule seen.
== END 2021-07-29 09:37 | disposition home or self-care (01) ==
LOC: HO.CT 09:36
PROVIDERS: PCP Internal Medicine; Visit Provider Surgery
DX: C34.11 Malignant neoplasm of upper lobe, right bronchus or lung (principal)
CPT/HCPCS: 71250

== ENCOUNTER → 2021-08-13 09:23 | Outpatient (BNVA) | payer OTHER, SELFPAY | PROVIDERS: PCP Internal Medicine; Visit Provider Surgery | DX: C34.11 Malignant neoplasm of upper lobe, right bronchus or lung (principal); Z79.899 Other long term (current) drug therapy; Z79.891 Long term (current) use of opiate analgesic; Z90.2 Acquired absence of lung [part of]; Z87.891 Personal history of nicotine dependence | CPT/HCPCS: 99212 ==

== ENCOUNTER → 2021-09-23 10:32 | Outpatient (BNVA) | payer OTHER, SELFPAY | PROVIDERS: PCP Internal Medicine; Visit Provider Orthopaedic Surgery | DX: M75.42 Impingement syndrome of left shoulder (principal) | CPT/HCPCS: 99212 ==

== ENCOUNTER 2021-10-04 07:16 | Outpatient (REF) | payer OTHER, SELFPAY ==
[2021-10-04 07:22] LABS: MANUAL DIFF FLAG NO
[2021-10-04 07:32] LABS: Basophils Absolute Auto 0.1 X10*3/uL (0.0-0.2); Basophils Percent Auto 0.9 % (0-2); Eosinophils Absolute Auto 0.3 X10*3/uL (0.0-0.4); Eosinophils Percent Auto 5.3 % (0-4); Hematocrit 46.1 % (42.0-52.0); Hemoglobin 14.9 g/dl (14.0-18.0); Imm Gran Abs Auto 0.03 X10*3/uL (0.00-0.03); Imm Gran Pct Auto 0.5 % (0.0-0.4); Lymphocytes Absolute Auto 2.5 X10*3/uL (1.2-4.9); Lymphocytes Percent Auto 38.6 % (20-40); Mean Corpuscular HGB Conc 32.3 g/dl (31.0-36.0); Mean Corpuscular Hemoglobin 29.4 pg (27.0-33.0); Mean Corpuscular Volume 91.1 fL (80.0-98.0); Mean Platelet Volume 8.9 fL (9.4-12.4); Monocytes Absolute Auto 0.7 X10*3/uL (0.1-1.2); Monocytes Percent Auto 11.1 % (2-11); Neutrophils Absolute Auto 2.8 x10*3/uL (2.0-8.3); Neutrophils Percent Auto 43.6 % (45-73); Platelet Count 437 X10*3/uL (160-400); Red Blood Count 5.06 X10*6/uL (4.60-5.80); Red Cell Distribution Width 13.2 % (11.0-16.0); White Blood Count 6.4 X10*3/uL (4.8-10.8)
[2021-10-04 07:56] LABS: Alanine Aminotransferase 33 U/L (0-40); Albumin Level 4.3 g/dL (3.5-5.0); Alkaline Phosphatase 65 U/L (39-117); Anion Gap 13 (12-20); Aspartate Amino Transferase 21 U/L (5-37); Bilirubin Total 0.3 mg/dL (0.0-1.0); Blood Urea Nitrogen 14 mg/dL (9-16); Calcium 9.5 mg/dL (8.4-10.2); Carbon Dioxide 26 mmol/L (22-29); Chloride 105 mmol/L (96-108); Cholesterol 272 mg/dL; Estimated Glomerular Filt Rate > 60; Glucose Fasting 103 mg/dL (60-99); HDL Cholesterol 47 mg/dL; LDL Cholesterol Calculated 170 mg/dl; Potassium 4.2 mmol/L (3.3-5.1); Sodium 140 mmol/L (135-145); Total Protein 7.8 g/dL (6.5-8.0); Triglycerides 276 mg/dL
[2021-10-04 08:16] LABS: Vitamin D 25-OH Total 33.8 ng/mL (>30)
[2021-10-04 09:52] LABS: Appearance Urine CLEAR; Color Urine YELLOW; Glucose Urine UA NEG (NEG); Leukocyte Esterase Urine NEG (NEG); Nitrite Urine NEG (NEG); Specific Gravity - Urine 1.025 (1.005-1.025); Urine Blood NEG (NEG); Urine Ketones NEG (NEG); Urine Protein NEG (NEG-TRACE)
== END 2021-10-04 07:17 | disposition home or self-care (01) ==
LOC: HO.LAB 07:16
PROVIDERS: PCP Internal Medicine; Visit Provider Internal Medicine
DX: Z00.00 Encounter for general adult medical examination without abnormal findings (principal)
CPT/HCPCS: 36415; 80053; 80061; 81003; 82306; 84443; 85025

== ENCOUNTER → 2021-10-08 13:21 | Outpatient (BNVA) | payer OTHER, SELFPAY | PROVIDERS: PCP Internal Medicine; Visit Provider Physician Assistant | DX: M77.11 Lateral epicondylitis, right elbow (principal) | CPT/HCPCS: 20551; 99212; J1020 ==

== ENCOUNTER 2021-10-11 16:59 | Outpatient (REF) | payer OTHER, SELFPAY ==
--- NOTE | ~2021-10-11 | MR_ITS ---
EXAMINATION: MRI SHOULDER WITHOUT CONTRAST, LEFT CLINICAL INFORMATION: Anterior left shoulder pain. Impingement syndrome. COMPARISON: Left shoulder radiographs dated 12/05/2016. TECHNIQUE: Multisequence MR imaging of the left shoulder was obtained without contrast on a high-field strength scanner. FINDINGS: ROTATOR CUFF: Supraspinatus tendinosis with distal bursal surface fraying/partial tearing measuring 1.6 x 1.3 cm (AP by ML). No full-thickness tendon defect. No muscle atrophy or fatty infiltration. BICEPS: Normal. CORACOACROMIAL ARCH: The undersurface of the acromion is curved with no subacromial spur. Moderate acromioclavicular osteoarthritis. LABRUM/CAPSULE: No displaced labral tear. Intact joint capsule. GLENOHUMERAL JOINT/MARROW: Normal. MR/MR shoulder LT wo con IMPRESSION: 1. Supraspinatus tendinosis with distal bursal surface fraying/partial tearing measuring 1.6 x 1.3 cm (AP by ML). 2. Moderate acromioclavicular osteoarthritis.
== END 2021-10-11 17:00 | disposition home or self-care (01) ==
LOC: HO.MRI 16:59
PROVIDERS: PCP Internal Medicine; Visit Provider Orthopaedic Surgery
DX: M75.42 Impingement syndrome of left shoulder (principal)
CPT/HCPCS: 73221

== ENCOUNTER → 2021-10-25 12:34 | Outpatient (BNVA) | payer OTHER, SELFPAY | PROVIDERS: PCP Internal Medicine; Visit Provider Orthopaedic Surgery | DX: M67.912 Unspecified disorder of synovium and tendon, left shoulder (principal); M19.019 Primary osteoarthritis, unspecified shoulder | CPT/HCPCS: 99212 ==

== ENCOUNTER 2021-11-03 07:05 | Day surgery (SDC) | payer OTHER, SELFPAY ==
[2021-11-03] VITALS (10 sets, daily range): BP systolic 110–141; BP diastolic 73–94; PULSE 91–112; RESP 14–17; TEMP 36.2–36.8; O2SAT 92–99; BMI 24.0
--- NOTE | 2021-11-03 08:42 | P.CONAN_ITS ---
[facility] Active Problems Active Problems: All Active Problems (Updated 10/25/21 @ 15:11 by Manfred Dias MD) AC joint arthropathy (Acute) Dysfunction of left rotator cuff (Acute) Lateral epicondylitis, right elbow (Acute) Lumbar back pain with radiculopathy affecting right lower extremity (Acute) Cancer of upper lobe of right lung (Acute ~2019) Smoker (Acute) Pharyngitis (Acute) Erectile dysfunction (Acute) Lumbar degenerative disc disease (Acute) Cervical paraspinal muscle spasm (Acute) Rotator cuff impingement syndrome of left shoulder (Acute) Olecranon impingement syndrome of right elbow (Acute) Elbow pain (Acute) Patellofemoral pain syndrome of left knee (Acute) Left knee pain (Acute) Nerve pain (Acute) Past Medical History Medical History Anxiety Back pain Cancer of upper lobe of right lung (~2019) Erectile dysfunction Left knee pain Lumbar back pain with radiculopathy affecting right lower extremity Lumbar degenerative disc disease Smoker Family History Family History Father No problems noted. Mother Hypertension Hyperlipidemia Asthma Stroke Osteoporosis Family history of problems with anesthesia: No Surgical History Surgical History History of lumbar surgery (~2013) History of surgical removal of lesion Status post partial lobectomy of lung (~07/2020) History of Problems with Anesthesia: No Social History Social History Housing: House Alcohol intake: former Patient Tobacco Use Status: Former Tobacco user Quit Date: 2019 Tobacco use type: Cigarette Years Smoked: 15 Smoked in Last 30 Days: No Second Hand Smoke Exposure: Yes Use of substances other than those prescribed or required for medical reasons: No Are you DNR?: No Advance Directives: No Advance Directives Information Provided: Yes service: No Current occupational status: unemployed and disabled Meds Allergies Allergy/AdvReac Type Severity Reaction Status Date / Time codeine AdvReac Intermediate PALPITATION Verified 11/03/21 07:18 [From TYLENOL-CODEINE #3] S tramadol [TRAMADOL] AdvReac Intermediate PALPITATION Verified 11/03/21 07:18 /SHAKINESS Active Medications: Current Medications Lactated Ringer's (Lr) 1,000 mls @ 100 mls/hr IVCONT .Q10H [facility] Exam Exam Date and Time: November 03, 2021 0842 Height,Weight and Vital Signs: Height 5 ft 8 in Weight 71.668 kg Last Vital Signs Temp 98.3 F 11/03/21 07:39 Pulse 99 11/03/21 07:39 Resp 16 11/03/21 07:39 BP 141/93 H 11/03/21 07:39 Pulse Ox 99 11/03/21 07:39 Airway Mallampati Class: I TM Dist: >3cm Neck ROM: Full Assessment and Plan Assessment Anesthesia Assessment: Anesthesia Plan Discussed and Chart Reviewed Final Anesthetic Review Family History of Problems with Anesthesia: No History of Problems with Anesthesia: No NPO: Yes ASA Class: II Final Preanesthetic Review: No Changes in Pt Med Stat, Meds/Allgs Chart Reviewed, Consent Obtained/Reviewed, Anes Risks/Benef Reviewed and DNR Form (If Appl.) Patient Risk: Low Procedure Risk: Intermediate Anesthetic Plan Anesthetic Plan: GA and Regional Block Disposition: Standard PACU
[2021-11-03] MEDS: Lactated Ringers 1,000 ML 100 ML IVCONT (08:44)
--- NOTE | 2021-11-03 09:45 | MHC.SHP ---
Pre-Procedural Eval Section A Date of Service: 11/03/21 The patient is an INPATIENT: No Changes since office visit: No Cold of Flu in the past 2 weeks, No New Medical Problems, No Changes in Medication and No Patient answered all questions The History & Physical has been completed within 30 days and I have reviewed it.: Yes Section B Chief Complaint: impingment Allergies: Allergies Allergy/AdvReac Type Severity Reaction Status Date / Time codeine AdvReac Intermediate PALPITATION Verified 11/03/21 07:18 [From TYLENOL-CODEINE #3] S tramadol [TRAMADOL] AdvReac Intermediate PALPITATION Verified 11/03/21 07:18 /SHAKINESS Plan I have reviewed the history and physical and performed a pertinent physical examination on my patient. No changes have occurred unless specified.
--- NOTE | 2021-11-03 11:35 | P.BOP_ITS ---
Brief Operative Note Date of Service: 11/03/21 Pre-op diagnosis: left ACJ arthritis Procedure: Distal clavicle excision and sub acromial decompression left shoulder Implants: none Surgeon: Manfred Dias MD Anesthesia: GETA and regional Was an Ordnance Equipment Worker used for this Procedure?: No Estimated blood loss (mL): 20 IV fluids (mL): 1,000 Pathology: none sent Condition: stable Disposition: PACU
[2021-11-03] MEDS: Acetaminophen 325 MG TABLET 650 MG PO (12:20)
[2021-11-03] MEDS: oxyCODONE HCl Immed Release 5 MG TABLET 10 MG PO (12:20)
[2021-11-03] MEDS: fentaNYL citrate/PF 100 MCG/2 ML VIAL 50 MCG IVPUSH ×2 (12:25→12:30)
--- NOTE | 2021-11-17 11:45 | W.PM.OPN ---
Operative Note Operative Note Date of Service: 11/03/21 Narrative: Date of Service: 11/03/21 Pre-op diagnosis: left ACJ arthritis Procedure: Distal clavicle excision and sub acromial decompression left shoulder Implants: none Surgeon: Manfred Dias MD Anesthesia: GETA and regional Was an Legal Administrator used for this Procedure?: No Estimated blood loss (mL): 20 IV fluids (mL): 1,000 Pathology: none sent Condition: stable Disposition: PACU Procedure in detail: Patient was brought to the operating room and placed the the beach chair position. All bony prominences were well padded and the limb was prepped and draped in standard sterile fashion. A time out was called to identify proper site, proper procedure and proper surgeon. IV antibiotics per weight were administered. I began by making a posterolateral stab incision with a 15 blade. A blunt trochar was placed into the glenohumeral joint and I insufflated the joint with saline and a 30 degree arthroscope was placed. I established an outside- in anterior portal just distal to the biceps tendon. I then began my inspection of the glenohumeral joint. There were no cartilage changes. Gutter was clean and there was no undersurface rotator cuff tear. The subscapularis was intact and the biceps was intact. There was fraying of superior labrum which was minimal and this was debrided with the shaver. I then removed the trochar and entered the subacromial space. A direct lateral portal was then established and I performed a bursectomy. The cuff was then examined. There was mild bursal fraying with no undersurface rotator cuff tear. A 5 mm subacromial decompression was performed. I then examined the AC joint and a distal clavicular cartilage was eburnated and arthritic. I then performed a 5 mm distal clavicle excision was performed with a bur through the anterior portal taking caution to preserve the superior ligamentous structures. Once I was satisfied with the extent of bony resection of both the acromion and the distal clavicle all final images were captured and I removed all instrumentation. Portals were closed with nylon. Patient was placed in an abduction sling, extubated and brought to the recovery room in stable condition. There were no known complications.
== END 2021-11-03 13:20 | disposition home or self-care (01) ==
PROVIDERS: PCP Internal Medicine; Visit Provider Orthopaedic Surgery
PROC: (CPT 29805; principal; 2021-11-03 08:50)
DX: M75.42 Impingement syndrome of left shoulder (principal); M19.012 Primary osteoarthritis, left shoulder; M67.912 Unspecified disorder of synovium and tendon, left shoulder; M51.36 Other intervertebral disc degeneration, lumbar region; Z85.118 Personal history of other malignant neoplasm of bronchus and lung; Z79.1 Long term (current) use of non-steroidal anti-inflammatories (NSAID); Z88.8 Allergy status to other drugs, medicaments and biological substances; Z87.891 Personal history of nicotine dependence
CPT/HCPCS: 29824; 29826; 29822; J0171; J0690; J1100; J2250; J2370; J2405; J3010

== ENCOUNTER → 2021-11-08 10:38 | Outpatient (BNVA) | payer OTHER, SELFPAY | PROVIDERS: PCP Internal Medicine; Visit Provider Physician Assistant | DX: M19.012 Primary osteoarthritis, left shoulder (principal); M67.912 Unspecified disorder of synovium and tendon, left shoulder | CPT/HCPCS: 99212 ==

== ENCOUNTER 2021-11-29 18:19 | Emergency (ER) | payer OTHER, SELFPAY ==
--- NOTE | 2021-11-29 | ECG_ITS ---
Test Reason : NUMBNESS Blood Pressure : / mmHG Vent. Rate : 095 BPM Atrial Rate : 095 BPM P-R Int : 184 ms QRS Dur : 084 ms QT Int : 336 ms P-R-T Axes : 055 007 045 degrees QTc Int : 422 ms Normal sinus rhythm Normal ECG When compared with ECG of 09-FEB-2021 11:00, No significant change was found Referred By: Generic ED Physician Electronically Signed By:AMY BRISCOE MD
--- NOTE | ~2021-11-29 | CT_ITS ---
EXAMINATION: CT HEAD WITHOUT CONTRAST CLINICAL INFORMATION: Left facial numbness. Onset at 4:00 PM. COMPARISON: None TECHNIQUE: Contiguous axial imaging was performed from the skull base to vertex without intravenous administration of contrast. This CT examination was performed using dose optimization techniques as appropriate, variously including the following: *Automated exposure control *Adjustment of mA and/or kV according to patient size (this includes techniques or standardized protocols for targeted exams where dose is matched to indication/reason for exam; i.e. extremities or head) *Use of iterative reconstruction technique DLP: 666 mGy-cm FINDINGS: There is no evidence of acute intracranial hemorrhage or territorial infarction. No abnormal mass effect or midline shift is seen. Segura to white matter differentiation is well preserved. No extra-axial fluid collections are identified. The ventricles are normal in size. There is no abnormal attenuation within the brain parenchyma. The osseous structures and soft tissues are normal. The mastoid air cells and visualized portions of the paranasal sinuses are well aerated. CT/CT head/brain wo con IMPRESSION: No acute intracranial process seen.
--- NOTE | ~2021-11-29 | CT_ITS ---
EXAMINATION: CTA OF THE HEAD/NECK CLINICAL INFORMATION: Left-sided loss of sensation since 4:00 PM COMPARISON: Head CT from earlier today. TECHNIQUE: A routine non contrast head CT was performed earlier in the evening. This is followed by a 70 mL bolus of Omnipaque 350. Subsequent multidetector helical imaging was performed of the head and neck. Delayed post contrast imaging was also performed through the head. Multiplanar reformats and MIP were also obtained. Internal carotid artery stenoses are assessed in accordance with NASCET criteria unless otherwise indicated. This CT examination was performed using dose optimization techniques as appropriate, variously including the following: *Automated exposure control *Adjustment of mA and/or kV according to patient size (this includes techniques or standardized protocols for targeted exams where dose is matched to indication/reason for exam; i.e. extremities or head) *Use of iterative reconstruction technique DLP: 1579 mGy-cm. FINDINGS: CT HEAD: There is no evidence of acute intracranial hemorrhage or territorial infarction. No abnormal mass effect or midline shift is seen. Segura to white matter differentiation is well preserved. No extra-axial fluid collections are identified. No suspicious leptomeningeal or parenchymal enhancement on the post-contrast images. No hydrocephalus. No significant volume loss. There is no abnormal attenuation within the brain parenchyma. The osseous structures and soft tissues are normal. The mastoid air cells and visualized portions of the paranasal sinuses are well aerated. CTA NECK: The aortic arch is of normal caliber and the origins of the great vessels are patent without evidence of significant stenosis. Common origin of the innominate artery and left common carotid artery. The cervical portion of the vertebral arteries are patent bilaterally. No luminal irregularities in the common carotid arteries and the carotid bifurcations are patent bilaterally. The cervical portion of the internal carotid arteries are of normal caliber. The laryngeal structures and pharyngeal mucosal spaces are unremarkable. The oral cavity appears normal. The parotid and submandibular glands are normal. No pathologically enlarged lymph nodes. The thyroid gland is unremarkable. The lung apices are clear without evidence of pneumothorax. Spinal alignment is maintained. CTA HEAD: The intradural portion of the vertebral arteries are of normal caliber. The basilar, superior cerebellar, and posterior communicating arteries are patent. The posterior, middle, and anterior cerebral arteries are of normal caliber without evidence of significant luminal irregularity. No definite intracranial aneurysms. CT/CT angio head neck IMPRESSION: 1. No acute intracranial finding. 2. No large vessel occlusion or flow-limiting stenosis.
[2021-11-29 18:32] VITALS: BP 136/87; PULSE 100; RESP 18; TEMP 36.9; O2SAT 100; BMI 23.7
[2021-11-29 18:56] LABS: Basophils Absolute Auto 0.1 X10*3/uL (0.0-0.2); Basophils Percent Auto 1.1 % (0-2); Eosinophils Absolute Auto 0.4 X10*3/uL (0.0-0.4); Eosinophils Percent Auto 6.1 % (0-4); Hematocrit 43.1 % (42.0-52.0); Hemoglobin 14.4 g/dl (14.0-18.0); Imm Gran Abs Auto 0.01 X10*3/uL (0.00-0.03); Imm Gran Pct Auto 0.1 % (0.0-0.4); Lymphocytes Absolute Auto 2.8 X10*3/uL (1.2-4.9); Lymphocytes Percent Auto 40.4 % (20-40); MANUAL DIFF FLAG NO; Mean Corpuscular HGB Conc 33.4 g/dl (31.0-36.0); Mean Corpuscular Hemoglobin 30.1 pg (27.0-33.0); Mean Platelet Volume 8.9 fL (9.4-12.4); Monocytes Absolute Auto 0.8 X10*3/uL (0.1-1.2); Monocytes Percent Auto 11.3 % (2-11); Neutrophils Absolute Auto 2.9 x10*3/uL (2.0-8.3); Platelet Count 402 X10*3/uL (160-400); Red Blood Count 4.79 X10*6/uL (4.60-5.80); Red Cell Distribution Width 13.2 % (11.0-16.0)
[2021-11-29 19:04] LABS: Prothrombin Time 11.8 SEC (9.9-13.0)
[2021-11-29 19:07] LABS: Partial Thromboplastin Time 34.9 SEC (24.1-38.0)
[2021-11-29 19:10] LABS: Anion Gap 12 (12-20); Blood Urea Nitrogen 12 mg/dL (9-16); Calcium 9.6 mg/dL (8.4-10.2); Carbon Dioxide 30 mmol/L (22-29); Chloride 103 mmol/L (96-108); Creatinine Clr Calc Pharmacy 86.5; Estimated Glomerular Filt Rate > 60; Glucose Random 102 mg/dL (60-115); Potassium 4.2 mmol/L (3.3-5.1); Sodium 141 mmol/L (135-145)
[2021-11-29 19:11] LABS: COVID-19 Test Negative (Negative)
--- NOTE | 2021-11-29 19:13 | PC.NURSE ---
MD Avendano made aware of patient status, can line operator aware of patient status.
[2021-11-29 20:42] VITALS: BP 127/86; PULSE 76; RESP 15; O2SAT 99
--- NOTE | 2021-11-29 20:49 | ED_ITS ---
HPI - General Adult General Chief complaint: General Medical Stated complaint: FACE NUMB Time Seen by Provider: 11/29/21 18:45 Source: patient Mode of arrival: ambulatory Limitations: no limitations History of Present Illness HPI narrative: Patient is status post left shoulder rotator cuff surgery 3 weeks ago was doing okay today around 16:00 notice sudden onset of numbness of the left face extending to the left chest no motor weakness no legs involvement no headache never had similar problem in the past no slurred speech Related Data Previous Rx's Medication Instructions Recorded oxycodone 5 mg tablet 5 mg PO Q6-8H PRN 5 Days #10 tab 09/29/21 tizanidine 4 mg tablet 4 mg PO TID PRN 10 Days #30 tab 09/29/21 nabumetone 500 mg tablet 500 mg PO BID PRN 15 Days #30 tab 10/02/21 ibuprofen 800 mg tablet 800 mg PO TID PRN #90 tab 10/25/21 oxycodone-acetaminophen 5 mg-325 1 tab PO Q4H PRN #30 tab 11/03/21 mg tablet (Percocet) Allergies Allergy/AdvReac Type Severity Reaction Status Date / Time codeine AdvReac Intermediate PALPITATION Verified 11/29/21 18:32 [From TYLENOL-CODEINE #3] S tramadol [TRAMADOL] AdvReac Intermediate PALPITATION Verified 11/29/21 18:32 /SHAKINESS Review of Systems Review of Systems: Yes all other systems are reviewed and are negative [facility] Past Medical History Medical History Anxiety Back pain Cancer of upper lobe of right lung (~2019) Erectile dysfunction Left knee pain Lumbar back pain with radiculopathy affecting right lower extremity Lumbar degenerative disc disease Smoker Surgical History History of lumbar surgery (~2013) History of surgical removal of lesion Status post partial lobectomy of lung (~07/2020) Family History Family History Father No problems noted. Mother Hypertension Hyperlipidemia Asthma Stroke Osteoporosis Social History Social History Housing: House Alcohol intake: former Patient Tobacco Use Status: Former Tobacco user Quit Date: 2019 Tobacco use type: Cigarette Years Smoked: 15 Second Hand Smoke Exposure: Yes Advance Directives: No Advance Directives Information Provided: No service: No Current occupational status: unemployed and disabled Physical Exam Vital Signs: Vital Signs: Last Vital Signs Temp 98.5 F 11/29/21 18:32 Pulse 76 11/29/21 20:42 Resp 15 11/29/21 20:42 BP 127/86 11/29/21 20:42 Pulse Ox 99 11/29/21 20:42 BMI result Body Mass Index 23.7 Appearance: Alert. Oriented X3. No acute distress. Eyes: PERRLA, ENT: Pharynx normal. Oral Mucosa moist Neck: Normal inspection. Neck supple. CVS: Normal heart rate and rhythm. Pulses normal. Respiratory: No respiratory distress. Equal air entry bilateral, no wheezing/rales/rhonchi Abdomen: Soft and nontender. Bowel sounds are present, no mass palpable, no CVA tenderness Skin: Skin warm and dry. Normal skin color. Normal skin turgor. Extremities: No lower extremity edema. No calf tenderness Neuro: Oriented X 3. No motor deficit. .No cerebellar signs , decreased sensation to light touch and pinprick on left side of the face all the way to upper part of the left chest normal temperature sensation no motor weakness cranial nerves intact Medical Decision Making MDM Narrative Medical decision making narrative: Patient workup for stroke is negative including CT and CTA no large vessel occlusion patient does have decreased sensation to light touch and pinprick but normal sensation to temperature he can feel the cold ice when placed on the face. Likely paresthesia not stroke meanwhile patient advised to follow with neurologist and take baby aspirin daily Lab Data Lab results reviewed: Yes I reviewed the patient's lab results. Result diagrams: 11/29/21 18:46 11/29/21 18:46 Labs: Lab Results 11/29/21 11/29/21 11/29/21 Range/Units 18:46 18:46 18:46 WBC 7.0 (4.8-10.8) X10*3/uL RBC 4.79 (4.60-5.80) X10*6/uL Hgb 14.4 (14.0-18.0) g/dl Hct 43.1 (42.0-52.0) % MCV 90.0 (80.0-98.0) fL MCH 30.1 (27.0-33.0) pg MCHC 33.4 (31.0-36.0) g/dl RDW 13.2 (11.0-16.0) % Plt Count 402 H (160-400) X10*3/uL MPV 8.9 L (9.4-12.4) fL Immature Gran % (Auto) 0.1 (0.0-0.4) % Neut % (Auto) 41.0 L (45-73) % Lymph % (Auto) 40.4 H (20-40) % [place] % (Auto) 11.3 H (2-11) % Eos % (Auto) 6.1 H (0-4) % Baso % (Auto) 1.1 (0-2) % Lymph # (Auto) 2.8 (1.2-4.9) X10*3/uL [place] # (Auto) 0.8 (0.1-1.2) X10*3/uL Eos # (Auto) 0.4 (0.0-0.4) X10*3/uL Baso # (Auto) 0.1 (0.0-0.2) X10*3/uL Abs Immat Gran (auto) 0.01 (0.00-0.03) X10*3/uL Absolute Neuts (auto) 2.9 (2.0-8.3) x10*3/uL Absolute Nucleated RBC 0.000 (0.0-0.012) X10*3/uL Nucleated RBC % (auto) 0.0 (0.0-0.2) /100WBC ESR (0-15) MM/HR PT 11.8 (9.9-13.0) SEC INR 1.0 (0.9-1.1) APTT 34.9 (24.1-38.0) SEC Sodium 141 (135-145) mmol/L Potassium 4.2 (3.3-5.1) mmol/L Chloride 103 (96-108) mmol/L Carbon Dioxide 30 H (22-29) mmol/L Anion Gap 12 (12-20) BUN 12 (9-16) mg/dL Creatinine 1.01 (0.5-1.4) mg/dL Estim Creat Clear Calc 86.5 Estimated GFR > 60 Random Glucose 102 (60-115) mg/dL Calcium 9.6 (8.4-10.2) mg/dL COVID-19 ([place]) (Negative) COVID-19 Clin Com 11/29/21 11/29/21 Range/Units 18:46 18:46 WBC (4.8-10.8) X10*3/uL RBC (4.60-5.80) X10*6/uL Hgb (14.0-18.0) g/dl Hct (42.0-52.0) % MCV (80.0-98.0) fL MCH (27.0-33.0) pg MCHC (31.0-36.0) g/dl RDW (11.0-16.0) % Plt Count (160-400) X10*3/uL MPV (9.4-12.4) fL Immature Gran % (Auto) (0.0-0.4) % Neut % (Auto) (45-73) % Lymph % (Auto) (20-40) % [place] % (Auto) (2-11) % Eos % (Auto) (0-4) % Baso % (Auto) (0-2) % Lymph # (Auto) (1.2-4.9) X10*3/uL [place] # (Auto) (0.1-1.2) X10*3/uL Eos # (Auto) (0.0-0.4) X10*3/uL Baso # (Auto) (0.0-0.2) X10*3/uL Abs Immat Gran (auto) (0.00-0.03) X10*3/uL Absolute Neuts (auto) (2.0-8.3) x10*3/uL Absolute Nucleated RBC (0.0-0.012) X10*3/uL Nucleated RBC % (auto) (0.0-0.2) /100WBC ESR 4 (0-15) MM/HR PT (9.9-13.0) SEC INR (0.9-1.1) APTT (24.1-38.0) SEC Sodium (135-145) mmol/L Potassium (3.3-5.1) mmol/L Chloride (96-108) mmol/L Carbon Dioxide (22-29) mmol/L Anion Gap (12-20) BUN (9-16) mg/dL Creatinine (0.5-1.4) mg/dL Estim Creat Clear Calc Estimated GFR Random Glucose (60-115) mg/dL Calcium (8.4-10.2) mg/dL COVID-19 ([facility]) Negative (Negative) COVID-19 Clin Com See Note Discharge Plan Discharge Clinical Impression: Paresthesia Patient Disposition: Home, Self-Care Instructions: Paresthesia (ED) Additional Instructions: Take baby aspirin daily Follow with neurologist for further evaluation and treatment No finding of stroke was seen in the CT scan Prescriptions: No Action oxycodone-acetaminophen [Percocet] 5-325 mg tablet 1 tab PO Q4H PRN (Reason: pain) Qty: 30 RF: 0 oxycodone 5 mg tablet 5 mg PO Q6-8H PRN (Reason: pain) 5 Days Qty: 10 RF: 0 tizanidine 4 mg tablet 4 mg PO TID PRN (Reason: muscle spasticity) 10 Days Qty: 30 RF: 1 nabumetone 500 mg tablet 500 mg PO BID PRN (Reason: pain) 15 Days Qty: 30 RF: 3 ibuprofen 800 mg tablet 800 mg PO TID PRN (Reason: pain) Qty: 90 RF: 0 Referrals: Aida Ayala MD [Physician] - 1 week
[2021-11-29] MEDS: Aspirin 81 MG TAB.CHEW 324 MG PO (22:12)
[2021-11-29] MEDS: oxyCODONE HCl Immed Release 5 MG TABLET 10 MG PO (22:13)
[2021-11-29 22:22] LABS: Erythrocyte Sedimentation Rate 4 MM/HR (0-15)
[2021-11-29] MEDS: iohexoL 350 MG/ML 100 ML INFUS..BTL IV (22:44)
--- NOTE | 2021-11-29 23:54 | PC.NURSE ---
I assumed care of this pt upon their arrival to bed 13. The pt presents alert and oriented x 3 for evaluation of L sided facial numbness that began this afternoon.There is n slurred speech. No headache. No unilateral weakness Speech clear and appropriate. I placed an IV on the pt and he was brought to CT. The CT was negative and he has been discharged. The pt verbalized an understanding of all DC orders and he ambulated out of the ED independently and with steady gait.
== END 2021-11-29 23:54 | disposition home or self-care (01) ==
PROVIDERS: Emergency Provider Internal Medicine; PCP Internal Medicine
DX: R20.2 Paresthesia of skin (principal); Z20.822 Contact with and (suspected) exposure to COVID-19; F17.200 Nicotine dependence, unspecified, uncomplicated
CPT/HCPCS: 36415; 70450; 70496; 70498; 80048; 85025; 85610; 85652; 85730; 87635; 93005; 99284; Q9967

== ENCOUNTER 2021-12-02 11:00 | Outpatient (RCR) | payer OTHER, SELFPAY ==
--- NOTE | 2021-11-08 16:21 | MHC.PT.EP ---
[facility] [place] Office [place] Office [place] Office [address] [phone] F: [phone] F: [phone] F: [phone] F: [phone] Physical Therapy Plan of Care Date of Evaluation: Date of Surgery: 11/03/21 Diagnosis: S/P SAD DCE Assessment: CHUCKY IS A PLEASANT 46 YO MALE S/P SAD DCE. UPON EXAM HE DEMONSTRATES THE EXPECTED IMPAIRMENTS IN ROM, STRENGTH AND POSTURE, HE REPORTS INCREASED PAIN AND EDEMA. FUNCTIONAL LIMITATIONS INCLUDE DECREASED ABILITY TO PERFORM HOMEMAKING AND SELF CARE TASKS. HE REPORTS INABIILTY TO PERFORM REACHING, LIFTING, CARRYING, PUSHING AND PULLING . HE REPORTS DISRUPTED SLEEP. Frequency and Duration: The patient will be seen 2 X WEEK FOR 6 WEEKS Short Term Goals: INITIATE HEP AND PROMOTE SELF MANAGEMENT OF SYMPTOMS [facility]ci Goals: Full, pain free ROM in 5 weeks Full UE strength, pain free in 5 weeks To perform computer and work tasks without restriction and pain no greater than 2/10 [address] at minimum of 5# into cabinet at shoulder height in 5 weeks Treatment Plan: Modalities to reduce pain, spasms and effusion. Manual therapy to restore motion and function. Therapeutic exercise to improve strength and flexibility. Neuromuscular re-education for posture and balance. Therapeutic activities to return to functional activities of daily living. Electronically signed by: LUNA ADKINS PT, DPT Please sign and return to therapist. Thank you for your referral.
--- NOTE | 2021-12-31 13:59 | MHC.PT.DC ---
[facility] [place] Office [place] Office [place] Office [address] [place] Atkins [address] [phone] F: [phone] F: [phone] F: [phone] F: [phone] Physical Therapy Discharge Report Diagnosis: S/P SAD DCE Date of Surgery: 11/03/21 Date of Evaluation: 11/08/21 Date of Discharge: 12/02/21 Treatments to Date: 4 Cancellations to Date: 1 No Shows to Date: 3 Discharge Status: Patient Elected to Stop Discharge Summary: At last attended visit pt with increased shoulder pain and continued facial numbness. This PT spoke with Dr. Dias who feels it is probably not related to surgery but we will montior and he will follow up as needed with ortho however he decided not to pursue further PT and did not return for additional visits Electronically signed by: Niya Queen PT, DPT Please sign and return to therapist. Thank you for your referral.
== END 2021-12-31 14:00 | disposition home or self-care (01) ==
LOC: HO.PT 11:00
PROVIDERS: Visit Provider Physician Assistant
DX: M19.012 Primary osteoarthritis, left shoulder (principal); M67.912 Unspecified disorder of synovium and tendon, left shoulder
CPT/HCPCS: 97110; 97140; 97161

== ENCOUNTER → 2022-01-24 13:14 | Outpatient (BNVA) | payer OTHER, SELFPAY | PROVIDERS: PCP Internal Medicine; Visit Provider Physician Assistant | DX: M25.512 Pain in left shoulder (principal); M19.012 Primary osteoarthritis, left shoulder; M54.50 Low back pain, unspecified; M54.12 Radiculopathy, cervical region; F17.210 Nicotine dependence, cigarettes, uncomplicated; Z88.6 Allergy status to analgesic agent; Z79.1 Long term (current) use of non-steroidal anti-inflammatories (NSAID); Z79.891 Long term (current) use of opiate analgesic; Z79.899 Other long term (current) drug therapy | CPT/HCPCS: 99212 ==

== ENCOUNTER 2022-02-03 12:49 | Outpatient (REF) | payer OTHER, SELFPAY ==
--- NOTE | ~2022-02-03 | CT_ITS ---
EXAMINATION: CT CHEST WITHOUT CONTRAST CLINICAL INFORMATION: Malignant neoplasm of the right upper lobe COMPARISON: 07/29/2021. TECHNIQUE: Multidetector volumetric CT imaging of the chest was done. Axial MIP volume rendering provided. Sagittal and coronal reformatted images were obtained. This CT examination was performed using dose optimization techniques as appropriate, variously including the following: *Automated exposure control *Adjustment of mA and/or kV according to patient size (this includes techniques or standardized protocols for targeted exams where dose is matched to indication/reason for exam; i.e. 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 LUNGS: The central airways are patent. Postsurgical changes of right upper lobectomy. There is no dense consolidation. No pneumothorax. There is no suspicious pulmonary nodule. Likely tiny fissural lymph node along the right fissure on series 7 image 164 which is unchanged. MEDIASTINUM: Normal heart size. No pericardial effusion. No mediastinal lymphadenopathy. The thyroid gland is unremarkable. PLEURA: There is no pleural effusion. No pleural mass or thickening. AXILLA: No lymphadenopathy. UPPER ABDOMEN: Unremarkable. OSSEOUS STRUCTURES: No acute or suspicious osseous abnormality. Mild degenerative changes of the spine. CT/CT chest wo con IMPRESSION: No suspicious findings. Postsurgical changes of right upper lobectomy. No suspicious pulmonary nodules. No adenopathy. Fleischner guidelines were followed.
== END 2022-02-03 12:50 | disposition home or self-care (01) ==
LOC: HO.CT 12:49
PROVIDERS: Visit Provider Surgery
DX: C34.11 Malignant neoplasm of upper lobe, right bronchus or lung (principal)
CPT/HCPCS: 71250

== ENCOUNTER 2022-02-18 10:53 | Outpatient (REF) | payer OTHER, SELFPAY ==
--- NOTE | ~2022-02-18 | MR_ITS ---
EXAMINATION: MR CERVICAL SPINE WITHOUT CONTRAST CLINICAL INFORMATION: 46-year-old with complaints of pain, numbness and weakness in left arm and leg of 3 months' duration. Cervical radiculopathy. COMPARISON: None TECHNIQUE: MRI of the cervical spine was obtained using routine sequences without contrast. FINDINGS: ALIGNMENT: The cervical spine is anatomically aligned. There is no spondylolisthesis or significant retrolisthesis. CRANIOCERVICAL JUNCTION/C1-C2 ARTICULATIONS: Intact and aligned. There is a 1.3 cm benign hemangioma in the left lateral mass of C1. VISUALIZED INTRACRANIAL STRUCTURES: Within normal limits. VERTEBRAL BODIES: Normal height. DISC SPACES AND ENDPLATES: There is mild intervertebral disc space height loss at C6-C7. Otherwise the intervertebral disc space heights are well maintained. No significant spondylosis. Endplates appear intact. BONE MARROW: No significant marrow-replacing process or bone marrow edema. C2-C3: No disc herniation. No significant DJD, canal or neural foraminal stenosis. C3-C4: Small central disc protrusion with mild indentation of the ventral thecal sac without cord impingement or canal stenosis. Mild facet arthropathy on the left and mild uncovertebral spurring noted with minimal left-sided foraminal narrowing. C4-C5: Small central disc protrusion with mild indentation of the ventral thecal sac without cord impingement or canal stenosis. Mild right and moderate left-sided facet arthropathy noted without significant neural foraminal stenosis. Small perineural cyst in the left neural foramen. C5-C6: Central disc herniation noted with flattening of the central dural sac without cord impingement or significant canal stenosis. [id number] facet arthropathy noted left more than right without significant neural foraminal stenosis. Small perineural cysts noted in both neural foramina. C6-C7: Broad-based central to left subarticular disc herniation encroaching on the proximal left neural foramen and exiting left C7 nerve root. Slight flattening of the dural sac asymmetric to the left with no significant central spinal canal stenosis. No significant facet arthropathy. [id number] left-sided neural foraminal stenosis noted with possible left-sided uncinate process spurring as well. There is a 7 mm perineural cyst associated with the exiting left C7 nerve root sleeve. Tiny right foraminal perineural cyst. C7-T1: No disc herniation. Mild facet arthropathy on the left. No significant canal or neural foraminal stenosis. Small right lateral disc protrusion at T2-T3 noted. The cervical and visualized upper thoracic spinal cord is normal in morphology, caliber and signal intensity without focal lesion, edema or syrinx. VISUALIZED NECK SOFT TISSUES: Limited assessment. Grossly unremarkable. MR/MR cervical spine wo con IMPRESSION: 1. Discogenic degenerative changes primarily at C6-C7 with broad-based disc herniation asymmetric to the left at this level with left-sided uncovertebral spurring. There is narrowing of the inferior portion of the left neural foramen and there is probable left C7 nerve root impingement as detailed above. 2. Multilevel central disc herniations throughout the remainder of the cervical spine between C3-C4 and C5-C6 inclusive without spinal cord impingement or canal stenosis. 3. Multilevel [id number] degrees of facet arthropathy bilaterally throughout the cervical spine and multilevel bilateral perineural cysts.
== END 2022-02-18 10:54 | disposition home or self-care (01) ==
LOC: HO.MRI 10:53
PROVIDERS: Visit Provider Physician Assistant
DX: M54.12 Radiculopathy, cervical region (principal)
CPT/HCPCS: 72141

== ENCOUNTER → 2022-03-04 09:22 | Outpatient (BNVA) | payer OTHER, SELFPAY | PROVIDERS: PCP Internal Medicine; Visit Provider Surgery | DX: M79.2 Neuralgia and neuritis, unspecified (principal); Z85.118 Personal history of other malignant neoplasm of bronchus and lung | CPT/HCPCS: 99212 ==

== ENCOUNTER → 2022-04-06 09:49 | Outpatient (BNVA) | payer OTHER, SELFPAY | PROVIDERS: PCP Internal Medicine; Visit Provider Nurse Practitioner Family | DX: M19.019 Primary osteoarthritis, unspecified shoulder (principal); M62.838 Other muscle spasm; M25.529 Pain in unspecified elbow; M54.12 Radiculopathy, cervical region; M53.9 Dorsopathy, unspecified | CPT/HCPCS: 99202 ==

== ENCOUNTER 2022-08-12 16:34 | Emergency (ER) | payer OTHER, SELFPAY ==
[2022-08-12 18:28] VITALS: BP 147/81; PULSE 74; RESP 16; TEMP 36.6; O2SAT 99; BMI 23.7
== END 2022-08-13 00:57 | disposition left against medical advice (07) ==
PROVIDERS: Emergency Provider Emergency Medicine; PCP Internal Medicine
DX: M25.552 Pain in left hip (principal)
CPT/HCPCS: 99281

== ENCOUNTER → 2022-09-05 16:38 | Outpatient (BNVA) | payer OTHER, SELFPAY | PROVIDERS: PCP Internal Medicine; Visit Provider Anesthesiology | DX: S12.9XXA Fracture of neck, unspecified, initial encounter (principal); M54.2 Cervicalgia; M62.838 Other muscle spasm; M53.9 Dorsopathy, unspecified | CPT/HCPCS: 99212 ==

== ENCOUNTER 2022-09-06 08:50 | Outpatient (REF) | payer OTHER, SELFPAY ==
--- NOTE | ~2022-09-06 | XR_ITS ---
EXAMINATION: XR CERVICAL SPINE CLINICAL INFORMATION: Neck pain COMPARISON: Cervical spine CT from 2014 and cervical spine MRI February 2022 TECHNIQUE: 6 views of the cervical spine, inclusive of bilateral oblique. Views, were obtained. FINDINGS: Bone alignment is normal. No fracture or dislocation. Degenerative spondylosis and degenerative disc disease at C6-C7. Disc spaces are otherwise normal. Right-sided neuroforaminal narrowing from bony osteophyte at C3-C4 C4-C5 and C5-C6. Left-sided neural foramen are patent. Prevertebral soft tissues are normal. XR/XR cervical spine 5V IMPRESSION: Degenerative changes.
== END 2022-09-06 08:51 | disposition home or self-care (01) ==
LOC: HO.XRAY 08:50
PROVIDERS: PCP Internal Medicine; Visit Provider Anesthesiology
DX: S12.9XXA Fracture of neck, unspecified, initial encounter (principal)
CPT/HCPCS: 72050

== ENCOUNTER → 2022-09-14 07:25 | Outpatient (BNVA) | payer OTHER, SELFPAY | PROVIDERS: PCP Internal Medicine; Visit Provider Physician Assistant | DX: Z12.11 Encounter for screening for malignant neoplasm of colon (principal) | CPT/HCPCS: 99202 ==

== ENCOUNTER → 2022-10-05 16:22 | Outpatient (BNVA) | payer OTHER, SELFPAY | PROVIDERS: PCP Internal Medicine; Visit Provider Anesthesiology | DX: M54.2 Cervicalgia (principal); M62.838 Other muscle spasm; M53.9 Dorsopathy, unspecified; Z85.118 Personal history of other malignant neoplasm of bronchus and lung; Z90.2 Acquired absence of lung [part of] | CPT/HCPCS: 99212 ==

== ENCOUNTER 2022-11-22 11:47 | Emergency (ER) | payer OTHER, SELFPAY ==
--- NOTE | ~2022-11-22 | CT_ITS ---
EXAMINATION: CT ABDOMEN AND PELVIS WITHOUT CONTRAST CLINICAL INFORMATION: Abdominal pain COMPARISON: CT scan abdomen pelvis 02/09/2021 TECHNIQUE: Multidetector volumetric imaging was performed from the superior aspect of the liver through the pubic symphysis. Sagittal and coronal reformatted images were obtained on the technologist's workstation. This CT examination was performed using dose optimization techniques as appropriate, variously including the following: *Automated exposure control *Adjustment of mA and/or kV according to patient size (this includes techniques or standardized protocols for targeted exams where dose is matched to indication/reason for exam; i.e. extremities or head) *Use of iterative reconstruction technique DLP: 458 mGy-cm FINDINGS: LUNG BASES: The visualized lung bases are unremarkable. LIVER, GALLBLADDER, AND BILIARY TREE: The liver is normal in size, shape, and attenuation. No focal hepatic lesion or biliary ductal dilatation is present. The gallbladder is unremarkable with no evidence of radiopaque gallstones, gallbladder wall thickening, or obvious pericholecystic inflammatory changes. PANCREAS: Unremarkable. SPLEEN: Unremarkable. ADRENAL GLANDS: Unremarkable. KIDNEYS AND URETERS: The kidneys are normal in size, shape, and attenuation. No hydronephrosis, hydroureter, or calculi seen. No perinephric stranding. BLADDER: Unremarkable. GASTROINTESTINAL TRACT: The small and large bowel are unremarkable. The appendix is unremarkable. ABDOMINAL WALL: Small fat-containing umbilical hernia LYMPH NODES: Normal. VASCULAR: Unremarkable. PELVIC VISCERA: Unremarkable. OSSEOUS STRUCTURES: Multilevel degenerative spondylosis spine. Orthopedic cages at L5-S1. CT/CT abdomen pelvis wo IV con IMPRESSION: No acute abnormality CT scan abdomen pelvis. Fleischner guidelines were followed.
[2022-11-22 13:18] VITALS: BP 126/83; PULSE 95; RESP 18; TEMP 36.4; O2SAT 98; BMI 23.7
--- NOTE | 2022-11-22 13:19 | ED_ITS ---
HPI - General Adult General Chief complaint: Abdominal Pain Stated complaint: abd pain sent by walk in clinic Time Seen by Provider: 11/22/22 19:18 Related Data Previous Rx's Medication Instructions Recorded celecoxib 100 mg capsule (Celebrex) 100 mg PO BID 30 days #60 caps 09/06/22 bisacodyl 5 mg tablet,delayed 10 mg PO ONCE colonoscopy prep 1 09/14/22 release (Dulcolax (bisacodyl)) day #2 tabs polyethylene glycol 3350 17 238 g PO ONCE 1 day #238 grams 09/14/22 gram/dose oral powder (Miralax) tizanidine 4 mg tablet 6 mg PO TID PRN muscle spasticity 09/26/22 30 days #135 tabs prednisone 20 mg tablet 40 mg PO DAILY 5 days #10 tabs 11/22/22 Allergies Allergy/AdvReac Type Severity Reaction Status Date / Time codeine AdvReac Intermediate PALPITATION Verified 11/22/22 13:17 [From TYLENOL-CODEINE #3] S tramadol [TRAMADOL] AdvReac Intermediate PALPITATION Verified 11/22/22 13:17 /SHAKINESS PMFSH Past Medical History Medical History Anxiety Back pain Cancer of upper lobe of right lung (~2019) Cervical spondylosis with radiculopathy Erectile dysfunction Left knee pain Lumbar back pain with radiculopathy affecting right lower extremity Lumbar degenerative disc disease Smoker Surgical History History of lumbar surgery (~06/17/14) History of surgical removal of lesion Hx of laminectomy (~05/10/22) Hx of left knee surgery Status post partial lobectomy of lung (~07/2020) Status post shoulder surgery (~11/03/21) Family History Family History Father No problems noted. Mother Hypertension Hyperlipidemia Asthma Stroke Osteoporosis Social History Social History Housing: House Alcohol intake: former Patient Tobacco Use Status: Former Tobacco user Quit Date: 2019 Tobacco use type: Cigarette Years Smoked: 15 Second Hand Smoke Exposure: Yes Advance Directives: No Advance Directives Information Provided: Yes service: No Current occupational status: employed Cognitive needs: No Hearing needs: No Vision needs: Yes Physical Exam ED Vital Signs: Vital Signs - 24 hr 11/22/22 13:18 Temperature 97.5 F Pulse Rate 95 Respiratory Rate 18 Blood Pressure 126/83 Pulse Oximetry 98 Oxygen Delivery Method Room Air BMI result Body Mass Index 23.7 Course Course Course Narrative: RME: 47 yold sent to the ED RLQ pain. Labs and CT scan imaging ordered. patient well appearing Medical Decision Making Lab Data 11/22/22 13:34 11/22/22 13:34 Labs: Lab Results 11/22/22 11/22/22 Range/Units 13:34 13:34 WBC 6.5 (4.8-10.8) X10*3/uL RBC 5.12 (4.60-5.80) X10*6/uL Hgb 15.2 (14.0-18.0) g/dl Hct 45.3 (42.0-52.0) % MCV 88.5 (80.0-98.0) fL MCH 29.7 (27.0-33.0) pg MCHC 33.6 (31.0-36.0) g/dl RDW 13.2 (11.0-16.0) % Plt Count 395 (160-400) X10*3/uL MPV 8.7 L (9.4-12.4) fL Immature Gran % (Auto) 0.2 (0.0-0.4) % Neut % (Auto) 60.5 (45-73) % Lymph % (Auto) 24.7 (20-40) % [place] % (Auto) 8.8 (2-11) % Eos % (Auto) 4.6 H (0-4) % Baso % (Auto) 1.2 (0-2) % Lymph # (Auto) 1.6 (1.2-4.9) X10*3/uL [place] # (Auto) 0.6 (0.1-1.2) X10*3/uL Eos # (Auto) 0.3 (0.0-0.4) X10*3/uL Baso # (Auto) 0.1 (0.0-0.2) X10*3/uL Abs Immat Gran (auto) 0.01 (0.00-0.03) X10*3/uL Absolute Neuts (auto) 3.9 (2.0-8.3) x10*3/uL Absolute Nucleated RBC 0.000 (0.0-0.012) X10*3/uL Nucleated RBC % (auto) 0.0 (0.0-0.2) /100WBC Sodium 141 (135-145) mmol/L Potassium 4.8 (3.3-5.1) mmol/L Chloride 103 (96-108) mmol/L Carbon Dioxide 30 H (22-29) mmol/L Anion Gap 13 (12-20) BUN 18 H (9-16) mg/dL Creatinine 0.86 (0.5-1.4) mg/dL Estim Creat Clear Calc 100.5 Estimated GFR > 60 Random Glucose 105 (60-115) mg/dL Calcium 10.0 (8.4-10.2) mg/dL Magnesium 2.3 (1.6-2.6) mg/dL Total Bilirubin 0.3 (0.0-1.0) mg/dL AST 22 (5-37) U/L ALT 21 (0-40) U/L Alkaline Phosphatase 60 (39-117) U/L Total Protein 8.1 H (6.5-8.0) g/dL Albumin 4.7 (3.5-5.0) g/dL Discharge Plan Discharge Clinical Impression: Abdominal pain Patient Disposition: Home, Self-Care Instructions: Abdominal Pain (ED) Additional Instructions: As we discussed, your pain sounds most consistent with a muscular strain of your abdomen. However, the kidney stone is another consideration. You declined to remain in the emergency department to have urine testing sent. At this time you were discharged home, you should follow-up with your primary care provider within 2-3 days for persistent symptoms. You may return back to the emergency department with any new or worsening symptoms or concerns. You can take ibuprofen 200 mg, 3 tablets (600mg) every 6-8 hours as needed for pain, in addition to Tylenol 500 mg, 2 tablets (1,000mg) every 4-6 hours as needed for pain, but not to exceed 3 doses daily (3,000mg).? Prescriptions: No Action tizanidine 4 mg tablet 6 mg PO TID PRN (Reason: muscle spasticity) 30 Days Qty: 135 2RF prednisone 20 mg tablet 40 mg PO DAILY 5 Days Qty: 10 0RF celecoxib [Celebrex] 100 mg capsule 100 mg PO BID 30 Days Qty: 60 8RF Rx Instructions: Do not take ibuprofen to take this medication. bisacodyl [Dulcolax (bisacodyl)] 5 mg tablet,delayed release (DR/EC) 10 mg PO ONCE 1 Days Qty: 2 0RF Rx Instructions: Take 2 tablets by mouth at 12:00pm the day before your procedure. polyethylene glycol 3350 [Miralax] 17 gram/dose powder 238 g PO ONCE 1 Days Qty: 238 0RF Rx Instructions: Take as directed by mouth the day before your procedure. Referrals: Cam Chao MD [Primary Care Provider] - Stand Alone Forms: Work/School Release
[2022-11-22 13:38] LABS: MANUAL DIFF FLAG NO
[2022-11-22 13:40] LABS: Basophils Absolute Auto 0.1 X10*3/uL (0.0-0.2); Basophils Percent Auto 1.2 % (0-2); Eosinophils Absolute Auto 0.3 X10*3/uL (0.0-0.4); Eosinophils Percent Auto 4.6 % (0-4); Hematocrit 45.3 % (42.0-52.0); Hemoglobin 15.2 g/dl (14.0-18.0); Imm Gran Abs Auto 0.01 X10*3/uL (0.00-0.03); Imm Gran Pct Auto 0.2 % (0.0-0.4); Lymphocytes Absolute Auto 1.6 X10*3/uL (1.2-4.9); Lymphocytes Percent Auto 24.7 % (20-40); Mean Corpuscular HGB Conc 33.6 g/dl (31.0-36.0); Mean Corpuscular Hemoglobin 29.7 pg (27.0-33.0); Mean Corpuscular Volume 88.5 fL (80.0-98.0); Mean Platelet Volume 8.7 fL (9.4-12.4); Monocytes Absolute Auto 0.6 X10*3/uL (0.1-1.2); Monocytes Percent Auto 8.8 % (2-11); Neutrophils Absolute Auto 3.9 x10*3/uL (2.0-8.3); Neutrophils Percent Auto 60.5 % (45-73); Platelet Count 395 X10*3/uL (160-400); Red Blood Count 5.12 X10*6/uL (4.60-5.80); Red Cell Distribution Width 13.2 % (11.0-16.0); White Blood Count 6.5 X10*3/uL (4.8-10.8)
[2022-11-22 14:01] LABS: Alanine Aminotransferase 21 U/L (0-40); Albumin Level 4.7 g/dL (3.5-5.0); Alkaline Phosphatase 60 U/L (39-117); Anion Gap 13 (12-20); Aspartate Amino Transferase 22 U/L (5-37); Bilirubin Total 0.3 mg/dL (0.0-1.0); Blood Urea Nitrogen 18 mg/dL (9-16); Carbon Dioxide 30 mmol/L (22-29); Chloride 103 mmol/L (96-108); Creatinine Clr Calc Pharmacy 100.5; Estimated Glomerular Filt Rate > 60; Glucose Random 105 mg/dL (60-115); Magnesium 2.3 mg/dL (1.6-2.6); Potassium 4.8 mmol/L (3.3-5.1); Sodium 141 mmol/L (135-145); Total Protein 8.1 g/dL (6.5-8.0)
[2022-11-22 19:57] VITALS: BP 139/83; PULSE 88; RESP 16; TEMP 36.6; O2SAT 98
--- NOTE | 2022-11-22 19:59 | PC.NURSE ---
patient a&ox3, pt workup negative, provider at bedside to discharge patient. vss.
--- NOTE | 2022-11-22 20:02 | ED.ABDPAIN ---
HPI - Abdominal Pain General Chief Complaint: Abdominal Pain Stated Complaint: abd pain sent by walk in clinic Time Seen by Provider: 11/22/22 19:18 Source: patient Mode of arrival: ambulatory Limitations: no limitations History of Present Illness HPI narrative: Patient is a 47-year-old male presents emergency department for evaluation of right lower quadrant abdominal pain. Reports onset of pain 2 days ago, not worsening but has not improved. He states that the pain is made worse with particular movements such as bending forward or position changing. Denies associated fevers, chills, nausea, vomiting, upper or left-sided abdominal pain, constipation, diarrhea, dysuria, hematuria, urinary frequency/urgency/hesitancy. Denies any history of similar pain in the past. He was evaluated at urgent care prior to arrival, and was referred to the emergency department for further evaluation. Related Data Previous Rx's Medication Instructions Recorded celecoxib 100 mg capsule (Celebrex) 100 mg PO BID 30 days #60 caps 09/06/22 bisacodyl 5 mg tablet,delayed 10 mg PO ONCE colonoscopy prep 1 09/14/22 release (Dulcolax (bisacodyl)) day #2 tabs polyethylene glycol 3350 17 238 g PO ONCE 1 day #238 grams 09/14/22 gram/dose oral powder (Miralax) tizanidine 4 mg tablet 6 mg PO TID PRN muscle spasticity 09/26/22 30 days #135 tabs prednisone 20 mg tablet 40 mg PO DAILY 5 days #10 tabs 11/22/22 Allergies Allergy/AdvReac Type Severity Reaction Status Date / Time codeine AdvReac Intermediate PALPITATION Verified 11/22/22 13:17 [From TYLENOL-CODEINE #3] S tramadol [TRAMADOL] AdvReac Intermediate PALPITATION Verified 11/22/22 13:17 /SHAKINESS Review of Systems Review of Systems Constitutional : No Weight loss, No Fever, No Chills ENT/Mouth :? No sore throat, No Rhinorrhea Eyes: No Swelling, No Redness Cardiovascular : No Chest Pain, No SOB, No Edema Respiratory : No Cough, No Sputum, No Wheezing Gastrointestinal : No Nausea, no Vomiting, no Diarrhea, positive abdominal pain, No Hematochezia, No Melena Genitourinary : No Dysuria, No Urinary Frequency, No Hematuria, No Urgency? Musculoskeletal : No joint pain, No Myalgias, No Joint Swelling Skin : No Skin Lesions, No rash Neuro : No Weakness, No Numbness, No Dizziness, No Headache Psych : No Anxiety/Panic, No Depression Heme/Lymph: No Bruising, No Lymphadenopathy Endocrine : No Polyuria, No Polydipsia Yes all other systems are reviewed and are negative [facility] Past Medical History Attestation statement: The following information was validated with the patient. Source: old records reviewed Medical History Anxiety Back pain Cancer of upper lobe of right lung (~2019) Cervical spondylosis with radiculopathy Erectile dysfunction Left knee pain Lumbar back pain with radiculopathy affecting right lower extremity Lumbar degenerative disc disease Smoker Surgical History History of lumbar surgery (~06/17/14) History of surgical removal of lesion Hx of laminectomy (~05/10/22) Hx of left knee surgery Status post partial lobectomy of lung (~07/2020) Status post shoulder surgery (~11/03/21) Family History Family History Father No problems noted. Mother Hypertension Hyperlipidemia Asthma Stroke Osteoporosis Social History Social History Housing: House Alcohol intake: former Patient Tobacco Use Status: Former Tobacco user Quit Date: 2019 Tobacco use type: Cigarette Years Smoked: 15 Second Hand Smoke Exposure: Yes Advance Directives: No Advance Directives Information Provided: Yes service: No Current occupational status: employed Cognitive needs: No Hearing needs: No Vision needs: Yes Physical Exam ED Vital Signs: Vital Signs - 24 hr 11/22/22 13:18 11/22/22 19:57 Temperature 97.5 F 98 F Pulse Rate 95 88 Respiratory Rate 18 16 Blood Pressure 126/83 139/83 Pulse Oximetry 98 98 Oxygen Delivery Method Room Air Room Air BMI result Body Mass Index 23.7 Appearance: Alert.?Oriented to person, place and time. No acute distress.?Normal affect. Eyes: Pupils equal, round and reactive to light.? ENT: Pharynx normal.?? Neck: Normal inspection.? Neck supple.?? CVS: Heart sounds normal. Normal heart rate and rhythm.? Pulses normal.?? Respiratory: No respiratory distress.? Lung sounds clear to auscultation bilaterally?? Abdomen: Soft with mild tenderness in the right lower quadrant upon palpation, no rebound tenderness, negative Rovsing sign, psoas sign, obturator's sign.. Normoactive bowel sounds. No CVA tenderness? Skin: Skin warm and dry.? Normal skin color.? Extremities: No lower extremity edema.? Neuro: Moves all extremities spontaneously. Sensation intact bilaterally. . No focal neuro deficits. Ambulates with normal steady gait. Course Reevaluation(s) Reevaluation #1: CBC and CMP are overall unremarkable. Patient did not provide urinalysis, declines to remain in the emergency department for urine testing, he is asymptomatic of genitourinary complaints. A CT of the abdomen pelvis without evidence of acute pathology. At this time pain appears most consistent with musculoskeletal nature. Advised rest, ice/heat, acetaminophen/ibuprofen, reviewed worrisome signs and symptoms of warrant re-evaluation in the emergency department. Advised outpatient follow-up with primary care provider within the next 3 days for persistent symptoms. All questions answered. Departed in stable condition. Medical Decision Making Medical Decision Making [facility] Narrative: Patient is a 47-year-old male with past medical history of cervicalgia, cervical radiculopathy, lumbar degenerative disc disease, presented to the emergency department for evaluation of right lower abdominal pain. Abdominal examination prominent for mild tenderness upon palpation and right lower quadrant, however no rebound tenderness, no rigidity or guarding, does not appear consistent with acute abdomen. Will obtain CBC to evaluate for leukocytosis/ anemia, CMP to evaluate for abnormal electrolytes /abnormal renal function/ abnormal hepaticfunction, CT of the abdomen and pelvis to evaluate for appendicitis, colitis, diverticulitis, bowel obstruction, nephrolithiasis, hydronephrosis, obstructive urinary stone, pyelonephritis. and will obtain Urinalysis. Differential Diagnosis Differential Diagnoses: The differential diagnosis associated with the presentation includes (As noted above) Lab Data [facility] Lab Attestation statement: I reviewed the patient's lab results. 11/22/22 13:34 11/22/22 13:34 Labs: Lab Results 11/22/22 11/22/22 Range/Units 13:34 13:34 WBC 6.5 (4.8-10.8) X10*3/uL RBC 5.12 (4.60-5.80) X10*6/uL Hgb 15.2 (14.0-18.0) g/dl Hct 45.3 (42.0-52.0) % MCV 88.5 (80.0-98.0) fL MCH 29.7 (27.0-33.0) pg MCHC 33.6 (31.0-36.0) g/dl RDW 13.2 (11.0-16.0) % Plt Count 395 (160-400) X10*3/uL MPV 8.7 L (9.4-12.4) fL Immature Gran % (Auto) 0.2 (0.0-0.4) % Neut % (Auto) 60.5 (45-73) % Lymph % (Auto) 24.7 (20-40) % [place] % (Auto) 8.8 (2-11) % Eos % (Auto) 4.6 H (0-4) % Baso % (Auto) 1.2 (0-2) % Lymph # (Auto) 1.6 (1.2-4.9) X10*3/uL [place] # (Auto) 0.6 (0.1-1.2) X10*3/uL Eos # (Auto) 0.3 (0.0-0.4) X10*3/uL Baso # (Auto) 0.1 (0.0-0.2) X10*3/uL Abs Immat Gran (auto) 0.01 (0.00-0.03) X10*3/uL Absolute Neuts (auto) 3.9 (2.0-8.3) x10*3/uL Absolute Nucleated RBC 0.000 (0.0-0.012) X10*3/uL Nucleated RBC % (auto) 0.0 (0.0-0.2) /100WBC Sodium 141 (135-145) mmol/L Potassium 4.8 (3.3-5.1) mmol/L Chloride 103 (96-108) mmol/L Carbon Dioxide 30 H (22-29) mmol/L Anion Gap 13 (12-20) BUN 18 H (9-16) mg/dL Creatinine 0.86 (0.5-1.4) mg/dL Estim Creat Clear Calc 100.5 Estimated GFR > 60 Random Glucose 105 (60-115) mg/dL Calcium 10.0 (8.4-10.2) mg/dL Magnesium 2.3 (1.6-2.6) mg/dL Total Bilirubin 0.3 (0.0-1.0) mg/dL AST 22 (5-37) U/L ALT 21 (0-40) U/L Alkaline Phosphatase 60 (39-117) U/L Total Protein 8.1 H (6.5-8.0) g/dL Albumin 4.7 (3.5-5.0) g/dL Radiology Impression Discussion of test interpretation with radiology: I have reviewed the radiologist's reading. Radiologist Impression: CT/CT abdomen pelvis wo IV con IMPRESSION: No acute abnormality CT scan abdomen pelvis. ? Fleischner guidelines were followed. Prescription Management I considered prescription management with: Pain Medication Discharge Plan Discharge Clinical Impression: Abdominal pain Patient Disposition: Home, Self-Care Instructions: Abdominal Pain (ED) Additional Instructions: As we discussed, your pain sounds most consistent with a muscular strain of your abdomen. At this time you were discharged home, you should follow-up with your primary care provider within 2-3 days for persistent symptoms. You may return back to the emergency department with any new or worsening symptoms or concerns. You can take ibuprofen 200 mg, 3 tablets (600mg) every 6-8 hours as needed for pain, in addition to Tylenol 500 mg, 2 tablets (1,000mg) every 4-6 hours as needed for pain, but not to exceed 3 doses daily (3,000mg).? Prescriptions: No Action tizanidine 4 mg tablet 6 mg PO TID PRN (Reason: muscle spasticity) 30 Days Qty: 135 2RF prednisone 20 mg tablet 40 mg PO DAILY 5 Days Qty: 10 0RF celecoxib [Celebrex] 100 mg capsule 100 mg PO BID 30 Days Qty: 60 8RF Rx Instructions: Do not take ibuprofen to take this medication. bisacodyl [Dulcolax (bisacodyl)] 5 mg tablet,delayed release (DR/EC) 10 mg PO ONCE 1 Days Qty: 2 0RF Rx Instructions: Take 2 tablets by mouth at 12:00pm the day before your procedure. polyethylene glycol 3350 [Miralax] 17 gram/dose powder 238 g PO ONCE 1 Days Qty: 238 0RF Rx Instructions: Take as directed by mouth the day before your procedure. Referrals: Cam Chao MD [Primary Care Provider] - Stand Alone Forms: Work/School Release Interventions: ED Discharge Assessment Last Done: 11/22/22 19:59 Discharge Date/Time: 11/22/22 20:00
== END 2022-11-22 20:00 | disposition home or self-care (01) ==
PROVIDERS: Physician Assistant Medical; Emergency Provider Emergency Medicine Emergency Medical Services; PCP Internal Medicine
DX: R10.31 Right lower quadrant pain (principal); Z79.899 Other long term (current) drug therapy; Z87.891 Personal history of nicotine dependence
CPT/HCPCS: 36415; 74176; 80053; 83735; 85025; 99283; 99284

== ENCOUNTER 2023-02-16 13:16 | Outpatient (REF) | payer OTHER, SELFPAY ==
[2023-02-16 14:30] LABS: Influenza A PCR POSITIVE (Negative); Influenza B PCR NEGATIVE (Negative); Resp Syncy Virus RNA Qual PCR NEGATIVE (Negative); SARS COV2 PCR INHOUSE NEGATIVE (Negative)
== END 2023-02-16 13:17 | disposition home or self-care (01) ==
LOC: HO.LNP 13:16
PROVIDERS: Visit Provider Internal Medicine
DX: R09.89 Other specified symptoms and signs involving the circulatory and respiratory systems (principal); Z20.822 Contact with and (suspected) exposure to COVID-19
CPT/HCPCS: 0241U

== ENCOUNTER 2023-02-28 15:03 | Outpatient (REF) | payer OTHER, SELFPAY ==
--- NOTE | ~2023-02-28 | CT_ITS ---
EXAMINATION: CT CHEST WITHOUT CONTRAST CLINICAL INFORMATION: Malignant neoplasm right upper lobe COMPARISON: Previous chest CT most recent January 2022 TECHNIQUE: Multidetector volumetric CT imaging of the chest was done. Axial MIP volume rendering provided. Sagittal and coronal reformatted images were obtained. This CT examination was performed using dose optimization techniques as appropriate, variously including the following: *Automated exposure control *Adjustment of mA and/or kV according to patient size (this includes techniques or standardized protocols for targeted exams where dose is matched to indication/reason for exam; i.e. extremities or head) *Use of iterative reconstruction technique DLP: 161 mGy-cm FINDINGS: LUNGS: Stable postsurgical changes following right upper lobe lobectomy. Mild left apical pleural and parenchymal scarring. The lungs are otherwise clear. MEDIASTINUM: The mediastinum is normal. CORONARY ARTERY CALCIFICATION: None visualized on this study. PLEURA: There is no pleural effusion. No pleural mass or thickening. AXILLA: No lymphadenopathy. UPPER ABDOMEN: Unremarkable. OSSEOUS STRUCTURES: Unremarkable. CT/CT chest wo IV con IMPRESSION: Stable postsurgical changes following right upper lobe lobectomy. Stable pleural-parenchymal scarring at the left lung apex. Fleischner guidelines were followed.
== END 2023-02-28 15:04 | disposition home or self-care (01) ==
LOC: HO.CT 15:03
PROVIDERS: PCP Internal Medicine; Visit Provider Surgery
DX: C34.11 Malignant neoplasm of upper lobe, right bronchus or lung (principal)
CPT/HCPCS: 71250

== ENCOUNTER → 2023-03-03 09:43 | Outpatient (BNVA) | payer OTHER, SELFPAY | PROVIDERS: PCP Internal Medicine; Visit Provider Surgery | DX: C34.11 Malignant neoplasm of upper lobe, right bronchus or lung (principal) | CPT/HCPCS: 99212 ==

== ENCOUNTER 2023-04-10 15:45 | Outpatient (AMB) | payer OTHER, SELFPAY ==
[2023-04-10 15:46] VITALS: BP 142/84; PULSE 88; O2SAT 99; BMI 23.6
--- NOTE | 2023-04-10 15:46 | MHC.PC.OV ---
Vital Signs 04/10/23 15:46 Height 5 ft 8 in Weight 155 lb BMI 23.6 BP 142/84 H Blood Pressure Location Lt brachial Position Sitting Pulse 88 Pulse Source Pulse Oximeter Temp Source Skin Pulse Oximetry (%) 99 Oxygen Delivery Method Room Air Intake Visit Reasons: tabacco abuse , hypercholesterol, Lumbar DDD Diesel Dinkey Operator Required: No Allergies codeine [From TYLENOL-CODEINE #3] Adverse Reaction (Intermediate, Verified 06/22/23 09:02) PALPITATIONS tramadol [TRAMADOL] Adverse Reaction (Intermediate, Verified 06/22/23 09:02) PALPITATION/SHAKINESS Medication List - Last Reconciled 04/10/23 by aCm Choa MD bisacodyl (Dulcolax (bisacodyl)) 10 mg (2 x 5 mg) PO ONCE 1 day celecoxib (Celebrex) 100 mg PO BID 30 days oxycodone 5 mg PO Q6-8H PRN polyethylene glycol 3350 (Miralax) 238 grams PO ONCE 1 day sildenafil 50 mg PO DAILY PRN tizanidine 6 mg (1.5 x 4 mg) PO TID PRN Tobacco use date assessed: 04/10/23 HPI tabacco abuse , hypercholesterol, Lumbar DDD HPI Details Patient comes in today for his follow up visit States that he feels okay except for increasing neck pain lately, especially over the left side Still has recurrent low back pain but he states that he is able to manage his low back pain so far although he admits that he has been taking a lot of Tylenol for his low back pain lately Will be going to [place] for 17 days (vacation) in May 2023 and would like to get some Rx for Oxycodone 5 mg that he can take with him there for his neck pain and low back pain in case his pain gets worse while he is away States that he was seen by Dr. Yost for follow up of his lung cancer and was happy to be informed that he is now cancer-free He will continue to have follow up CT screening every 6 months for the next year or so He denies any headaches or dizziness Denies any chest pains, no SOB No nausea/vomiting, no abdominal pain No change in bowel habits noted Has had no follow up labs done since November 2022 [facility] Medical History Pure hypercholesterolemia Cervical spondylosis with radiculopathy Lumbar back pain with radiculopathy affecting right lower extremity Erectile dysfunction Left knee pain Lumbar degenerative disc disease Cancer of upper lobe of right lung (~2019) Smoker Back pain Anxiety Surgical History (Updated 06/28/23 @ 15:00 by Arabella Negron) Hx of colonoscopy Hx of left knee surgery Hx of laminectomy (~05/10/22) Status post shoulder surgery (~11/03/21) Status post partial lobectomy of lung (~07/2020) History of lumbar surgery (~06/17/14) History of surgical removal of lesion Family History Father No problems noted. Mother Hypertension Hyperlipidemia Asthma Stroke Osteoporosis Social History Housing: House Alcohol intake: former Patient Tobacco Use Status: Former Tobacco user Quit Date: 2019 Tobacco use type: Cigarette Years Smoked: 15 Second Hand Smoke Exposure: Yes service: No Current occupational status: employed Cognitive needs: No Hearing needs: No Vision needs: Yes Questionnaire Thrive Questionnaire Date Thrive assessed: 12/12/22 AUDIT C Alcohol Use Questionnaire (AUDIT-C) 1. How often do you have a drink containing alcohol?: Never 3. How often do you have six or more drinks on one occasion?: Never Total Score: 0 Score Reviewed/Action Taken: Yes EMERSON-7 AMB Questionnaire EMERSON-7 Date EMERSON - 7 assessed: 12/12/22 Source: Developed by Drs. Hipolito Huitron, Emilia Chisholm, Roman Deng and colleagues, with an educational melissa from [employer]. Review of Systems Const Denies chills, Reports fatigue, Denies fever(s) and Denies headache(s) ENT Denies dysphagia, Denies dizziness, Denies otalgia, Denies headache(s), Reports neck pain (increased lately, especially on the left side), Denies odynophagia and Denies sore throat Card Denies chest pain, Denies palpitations and Denies dyspnea Resp Denies cough and Denies dyspnea GI Denies abdominal pain, Denies constipation, Denies dysphagia, Denies heartburn, Denies diarrhea, Denies nausea, Denies odynophagia and Denies vomiting Reports erectile dysfunction (recently), Denies dysuria, Denies nocturia and Denies urinary frequency Musc Reports back pain (chronic), Reports arthralgias (involving multiple joints), Denies joint swelling and Reports neck pain (increased lately, especially on the left side) Skin/Breast Denies rash Neuro Denies dizziness and Denies headache(s) Endo Reports fatigue and Denies palpitations Physical exam (Primary Care) Vital Signs: Last Vital Signs Pulse 88 04/10/23 15:46 BP 142/84 H 04/10/23 15:46 Pulse Ox 99 04/10/23 15:46 Oxygen Delivery Method Room Air 04/10/23 15:46 BMI result Body Mass Index 23.6 Tobacco/Smoking Status: Tobacco use Status Tobacco use date assessed 04/10/23 04/10/23 15:47 Patient Tobacco Use Status Former Tobacco user 04/10/23 15:47 Tobacco use type Cigarette 04/10/23 15:47 Thrive Assessment: Date of Thrive Assessment Date Thrive assessed 12/12/22 04/10/23 15:47 Const General: no acute distress and alert HENMT Ears: TM's normal bilaterally and EAC's normal Throat: Yes posterior oropharynx normal and Yes tonsils normal (no TP congestion) Neck Neck: Yes no lymphadenopathy and Yes supple Resp Auscultation: clear to auscultation bilaterally, no rales and no wheezes Cardio Rate: regular rate Rhythm: regular rhythm Heart sounds: no murmurs GI Palpation (GI): Soft to palpation and nontender Auscultation: normal bowel sounds Back/Spine/Pelvis Cervical Spine: cervical muscular tenderness (left-sided) and Cervical spine tenderness Thoracic/Lumbar Spine: lumbar spinal tenderness Skin Rashes: no rashes Extrem General: Yes no clubbing, cyanosis or edema Left lower extremity: knee Details: tenderness Location: of the pre-patellar area; no swelling Assessment and Plan Assessment & Plan (1) Cancer of upper lobe of right lung: Onset Date: ~2019 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 Yost [address] done on 07/29/2021 came out normal/negative - stable findings with no abnormal new lung nodules seen Subsequent follow up exams have also been negative so far His most recent [address] done on 02/26/2023 revealed no evidence of disease recurrence; was just seen by Dr. Yost a few days later on 03/03/2023 and was declared 'cancer-free' Follow up with Dr. Yost as scheduled for continuing surveillance (2) Pure hypercholesterolemia: Code(s): E78.00 - Pure hypercholesterolemia, unspecified Plan: Has not had his cholesterol levels checked in a while - total cholesterol was at 272 mg/dl and LDL cholesterol was at 170 mg/dl when they were last checked on 10/04/2021 Reinforced low cholesterol diet Will recheck his labs and fasting lipids in 4 months for follow up (3) Lumbar degenerative disc disease: Comment: S/P diskectomy with interbody fusion L5-S1 with titanium cage and INFUSE (Dr. Acuna and Dr. Green) on 07/01/2014 Code(s): M51.36 - Other intervertebral disc degeneration, lumbar region Plan: Reinforced activity and weight-lifting restrictions Continue Gabapentin 300 mg TID Follow up with [facility] Pain Management as scheduled Will again provide patient again with a small supply of Oxycodone 5 mg to take as sparingly as he can and only for severe pain - Rx is for #20 tabs with no refills and reminded patient again that we have NO plans to continue him on opioids long-term or indefinitely (4) Cervical spondylosis with radiculopathy: Code(s): M47.22 - Other spondylosis with radiculopathy, cervical region Plan: S/P left C6-7 foraminotomy with microscopic dissection by Dr. Redman on 05/10/22 Follow up with neurosurgery as scheduled (5) AC joint arthropathy: Comment: S/P distal clavicle excision and subacromial decompression (left shoulder) on 11/03/[address] Dias Code(s): M19.019 - Primary osteoarthritis, unspecified shoulder Plan: MRI of the left shoulder done back in October 2021 revealed supraspinatus tendinosis with distal bursal surface fraying/partial tearing measuring 1.6 x 1.3 cm (AP by ML), and moderate acromioclavicular osteoarthritis Follow up with orthopedics as scheduled (6) Patellofemoral pain syndrome of both knees: Code(s): M22.2X1 - Patellofemoral disorders, right knee; M22.2X2 - Patellofemoral disorders, left knee Plan: X-rays of the left knee back in 11/2020 revealed (+) minimal medial and patellofemoral compartment arthrosis He was sent for repeat x-rays of the left knee back in February 2023 for further evaluation but he did not get these done He was also referred back then to physical therapy for both his knee and his lower back Follow up with orthopedics as scheduled (7) Erectile dysfunction: Code(s): N52.9 - Male erectile dysfunction, unspecified Qualifiers: Erectile dysfunction type: unspecified Qualified Code(s): N52.9 - Male erectile dysfunction, unspecified Plan: Continue Sildenafil 50 mg PRN Plan Follow up in 4 months Orders: Orders Lipid Panel 4 Months E78.00 - Pure hypercholesterolemia, unspecified Comprehensive [place]. Panel Fast 4 Months E78.00 - Pure hypercholesterolemia, unspecified TSH reflex Free T4 4 Months E78.00 - Pure hypercholesterolemia, unspecified UA CC w/rflx Micro + Cult 4 Months R30.0 - Dysuria Vitamin D 25-OH Total 4 Months E55.9 - Vitamin D deficiency, unspecified Complete Blood Count Auto Diff 4 Months I10 - Essential (primary) hypertension Medications: Refilled oxycodone Take NEEDED ONLY for SEVERE PAIN 5 mg PO Q6-8H PRN 20 tabs 0RF pain M22.2X2 - Patellofemoral disorders, left knee, M51.36 - Other intervertebral disc degeneration, lumbar region Coding Level of Care Code Est Pt Level 4 (73347) Diagnoses Cancer of upper lobe of right lung C34.11 Pure hypercholesterolemia E78.00 Lumbar degenerative disc disease M51.36 Cervical spondylosis with radiculopathy M47.22 AC joint arthropathy M19.019 Patellofemoral pain syndrome of both knees M22.2X1; M22.2X2 Erectile dysfunction, unspecified erectile dysfunction type N52.9 Erectile dysfunction type: unspecified
== END 2023-04-10 16:49 | disposition home or self-care (01) ==
LOC: HO.HMGH 15:45
PROVIDERS: PCP Internal Medicine; Visit Provider Internal Medicine
DX: C34.11 Malignant neoplasm of upper lobe, right bronchus or lung (principal); E78.00 Pure hypercholesterolemia, unspecified; M51.36 Other intervertebral disc degeneration, lumbar region; M47.22 Other spondylosis with radiculopathy, cervical region; M19.019 Primary osteoarthritis, unspecified shoulder; M22.2X1 Patellofemoral disorders, right knee; M22.2X2 Patellofemoral disorders, left knee; N52.9 Male erectile dysfunction, unspecified; Z85.118 Personal history of other malignant neoplasm of bronchus and lung
CPT/HCPCS: 99214

== ENCOUNTER 2023-06-22 08:38 | Day surgery (SDC) | payer OTHER, SELFPAY ==
[2023-06-20 12:28] VITALS: BMI 23.6
--- NOTE | 2023-06-21 09:22 | HO.ANESPROP2 ---
Documented by User: Ann Barrientos NP 06/27/23 14:49 HPI - Anesthesia Eval Consult details Narrative: 47yo M for Colonoscopy PMFSH Active Problems Active Problems: All Active Problems (Updated 04/10/23 @ 16:55 by Cam Chao MD) Pure hypercholesterolemia (Acute) Cancer of upper lobe of right lung (Acute ~2019) Smoker (Acute) Flu-like symptoms (Acute) Left knee pain (Acute) Cervical vertebral closed fracture (Acute) Cervicalgia (Acute) Colon cancer screening (Acute) Patellofemoral pain syndrome of both knees (Acute) Cervical spondylosis with radiculopathy (Acute) Multilevel degenerative disc disease (Acute) Perineural cyst (Acute) Cervical radiculopathy (Acute) AC joint arthropathy (Acute) Dysfunction of left rotator cuff (Acute) Lateral epicondylitis, right elbow (Acute) Lumbar back pain with radiculopathy affecting right lower extremity (Acute) Erectile dysfunction (Acute) Lumbar degenerative disc disease (Acute) Cervical paraspinal muscle spasm (Acute) Rotator cuff impingement syndrome of left shoulder (Acute) Olecranon impingement syndrome of right elbow (Acute) Elbow pain (Acute) Patellofemoral pain syndrome of left knee (Acute) Left knee pain (Acute) Nerve pain (Acute) Past Medical History Medical History Anxiety Back pain Cancer of upper lobe of right lung (~2019) Cervical spondylosis with radiculopathy Erectile dysfunction Left knee pain Lumbar back pain with radiculopathy affecting right lower extremity Lumbar degenerative disc disease Pure hypercholesterolemia Smoker Family History Family History Father No problems noted. Mother Hypertension Hyperlipidemia Asthma Stroke Osteoporosis Family history of problems with anesthesia: No Surgical History Surgical History History of lumbar surgery (~06/17/14) History of surgical removal of lesion Hx of laminectomy (~05/10/22) Hx of left knee surgery Status post partial lobectomy of lung (~07/2020) Status post shoulder surgery (~11/03/21) History of Problems with Anesthesia: No Social History Social History Housing: House Alcohol intake: former Patient Tobacco Use Status: Former Tobacco user Quit Date: 2019 Tobacco use type: Cigarette Years Smoked: 15 Second Hand Smoke Exposure: Yes service: No Current occupational status: employed Cognitive needs: No Hearing needs: No Vision needs: Yes Meds Allergies Allergy/AdvReac Type Severity Reaction Status Date / Time codeine AdvReac Intermediate PALPITATION Verified 06/22/23 09:02 [From TYLENOL-CODEINE #3] S tramadol [TRAMADOL] AdvReac Intermediate PALPITATION Verified 06/22/23 09:02 /SHAKINESS Exam Exam Date and Time: June 21, 2023921 Height,Weight and Vital Signs: Height 5 ft 8 in Weight 70.307 kg Pertinent Lab Results Pertinent Lab Results: Laboratory Tests 11/22/22 11/22/22 13:34 13:34 WBC 6.5 Hgb 15.2 Hct 45.3 Plt Count 395 Sodium 141 Potassium 4.8 Chloride 103 Carbon Dioxide 30 H BUN 18 H Creatinine 0.86 Assessment and Plan Assessment Anesthesia Assessment: Chart Reviewed Final Anesthetic Review Family History of Problems with Anesthesia: No History of Problems with Anesthesia: No Documented by User: Reno Shah MD 06/27/23 15:18 PMFSH Past Medical History Medical History Anxiety Back pain Cancer of upper lobe of right lung (~2019) Cervical spondylosis with radiculopathy Erectile dysfunction Left knee pain Lumbar back pain with radiculopathy affecting right lower extremity Lumbar degenerative disc disease Pure hypercholesterolemia Smoker Family History Family History Father No problems noted. Mother Hypertension Hyperlipidemia Asthma Stroke Osteoporosis Surgical History Surgical History History of lumbar surgery (~06/17/14) History of surgical removal of lesion Hx of laminectomy (~05/10/22) Hx of left knee surgery Status post partial lobectomy of lung (~07/2020) Status post shoulder surgery (~11/03/21) Social History Social History Housing: House Alcohol intake: former Patient Tobacco Use Status: Former Tobacco user Quit Date: 2019 Tobacco use type: Cigarette Years Smoked: 15 Second Hand Smoke Exposure: Yes service: No Current occupational status: employed Cognitive needs: No Hearing needs: No Vision needs: Yes Meds Allergies Allergy/AdvReac Type Severity Reaction Status Date / Time codeine AdvReac Intermediate PALPITATION Verified 06/22/23 09:02 [From TYLENOL-CODEINE #3] S tramadol [TRAMADOL] AdvReac Intermediate PALPITATION Verified 06/22/23 09:02 /SHAKINESS Exam Airway Mallampati Class: II TM Dist: >3cm Assessment and Plan Assessment Anesthesia Assessment: Anesthesia Plan Discussed Final Anesthetic Review NPO: Yes ASA Class: II Final Preanesthetic Review: No Changes in Pt Med Stat, Meds/Allgs Chart Reviewed, Consent Obtained/Reviewed and Anes Risks/Benef Reviewed Patient Risk: Low Procedure Risk: Low Anesthetic Plan Anesthetic Plan: MAC: Disposition: Standard PACU
--- NOTE | 2023-06-22 08:46 | MHC.SHP ---
Pre-Procedural Eval Section A Date of Service: 06/22/23 Section B Chief Complaint: screening Details of Present Illness: PMH: Anxiety Back pain Cancer of upper lobe of right lung (~2019) Cervical spondylosis with radiculopathy Erectile dysfunction Left knee pain Lumbar back pain with radiculopathy affecting right lower extremity Lumbar degenerative disc disease Smoker Surgical History History of lumbar surgery (~06/17/14) History of surgical removal of lesion Hx of laminectomy (~05/10/22) Hx of left knee surgery Status post partial lobectomy of lung (~07/2020) Status post shoulder surgery (~11/03/21) Present Medications: see Short Stay Collaborative assessment Allergies: Allergies Allergy/AdvReac Type Severity Reaction Status Date / Time codeine AdvReac Intermediate PALPITATION Verified 04/10/23 16:40 [From TYLENOL-CODEINE #3] S tramadol [TRAMADOL] AdvReac Intermediate PALPITATION Verified 04/10/23 16:40 /SHAKINESS Review of Systems Review of Systems Comment: 10 point ROS negative Exam Exam Comment: Gen appear: No acute distress HEENT: no icterus Chest: No overt resp distress Abd: soft, nontender, nondistended Psych: Stable affect, answering questions appropriately Neuro: A/Ox3 noted to move all extremities spontaneously Ext: no peripheral edema Plan Diagnosis/Plan: Unchanged I have reviewed the history and physical and performed a pertinent physical examination on my patient. No changes have occurred unless specified. Time Spent With Patient Time: Total time managing care of this patient today ____ minutes.
[2023-06-22] MEDS: Lactated Ringers 1,000 ML 100 ML IVCONT (08:55)
[2023-06-22 09:01] VITALS: BP 126/73; PULSE 84; RESP 18; TEMP 36.7; O2SAT 99
--- NOTE | 2023-06-22 09:10 | P.OP_ITS ---
Operative Note Operative Note Date of Service: 06/22/23 Narrative: Procedure: Colonoscopy Indication: Screening Endoscopist: Leah Odonnell MD Anesthesia Provider: Dr Reno Shah Anesthesia type: MAC Instrument: Olympus [id number]-H190L Consent: Indication, risks vs benefits, and alternatives were discussed with the patient who gave written informed consent to proceed. EKG, pulse, pulse oximetry and blood pressure were monitored throughout the procedure. Please see anesthesia flowsheet. Procedure: The patient was brought to the procedure room and placed in the left lateral decubitus position. IV medications were administered by the anesthesia provider in attendance. A digital rectal exam was performed which was normal. The colonoscope was then inserted through the anus and advanced through the colon to the cecum at 75 cm,and terminal ileum. Mucosa was carefully examined under high definition white light as the instrument was slowly withdrawn in a retrograde panoramic fashion. Retroflexion was performed in rectum. The procedure was not difficult. There were no immediate obvious complications. The quality of the prep was BBPS: 2+2+2 = adequate Withdrawal time 16 minutes. Limitations: No limitations. Findings: Mucosa: Copious liquid stool which was extensively suctioned. Normal to cecum and terminal ileum. Protruding lesions: * Medium internal hemorrhoids without stigmata of recent bleeding. Impression: 1. Normal colon and terminal ileum mucosa 2. Internal hemorrhoids 3. Fair prep Recommendations: - Repeat colonoscopy in 5-7 years due to quality of the prep
[2023-06-22 09:43] VITALS: BP 106/74; PULSE 84; RESP 14; TEMP 36.3; O2SAT 99
[2023-06-22 09:53] VITALS: BP 115/82; PULSE 78; RESP 18; TEMP 36.3; O2SAT 99
== END 2023-06-22 10:16 | disposition home or self-care (01) ==
PROVIDERS: PCP Internal Medicine; Visit Provider Internal Medicine
PROC: 0DJD8ZZ Inspection of Lower Intestinal Tract, Via Natural or Artificial Opening Endoscopic (ICD-10-PCS; CPT 45378; principal; 2023-06-22 11:20)
DX: Z12.11 Encounter for screening for malignant neoplasm of colon (principal); K64.8 Other hemorrhoids; E78.00 Pure hypercholesterolemia, unspecified; Z85.118 Personal history of other malignant neoplasm of bronchus and lung; Z87.891 Personal history of nicotine dependence; Z79.899 Other long term (current) drug therapy
CPT/HCPCS: 45378

== ENCOUNTER → 2023-06-22 08:38 | Outpatient (BNV) | payer OTHER, SELFPAY | PROVIDERS: PCP Internal Medicine; Visit Provider Internal Medicine | DX: Z12.11 Encounter for screening for malignant neoplasm of colon (principal); K64.8 Other hemorrhoids | CPT/HCPCS: 45378 ==

== ENCOUNTER 2023-11-29 16:26 | Outpatient (AMB) | payer OTHER, SELFPAY ==
--- NOTE | 2023-11-29 16:30 | MHC.PC.OV ---
Vital Signs 11/29/23 16:31 Height 5 ft 8 in Weight 156 lb BMI 23.7 BP 122/86 Blood Pressure Location Lt brachial Position Sitting Pulse 105 H Pulse Source Pulse Oximeter Pulse Oximetry (%) 98 Oxygen Delivery Method Room Air Intake Visit Reasons: neck pain and knee pain Pump Oiler Required: No Accompanied by: Self / Same As Patient Allergies codeine [From TYLENOL-CODEINE #3] Adverse Reaction (Intermediate, Verified 11/30/23 04:43) PALPITATIONS tramadol [TRAMADOL] Adverse Reaction (Intermediate, Verified 11/30/23 04:43) PALPITATION/SHAKINESS Medication List - Last Reconciled 11/30/23 by Cam Chao MD bisacodyl (Dulcolax (bisacodyl)) 10 mg (2 x 5 mg) PO ONCE 1 day celecoxib 100 mg PO BID 30 days oxycodone 5 mg PO Q6-8H PRN sildenafil 50 mg PO DAILY PRN tizanidine 6 mg (1.5 x 4 mg) PO TID PRN Tobacco use date assessed: 11/29/23 Dental Screening Dental Screen Date: 11/29/23 Did you have a dental visit in the last 12 months?: Yes Did you have a dental problem in the last 6 months where you did not have access to dental care?: No Was dental information given to patient?: Patient has dentist HPI neck pain and knee pain HPI Details Patient comes in today for his follow up visit He has not been back since April 2023 - states that he was in [place] for a while and also had some issues with his health insurance, which he just got straightened out recently States that he has been experiencing increasing pain over his left knee lately, especially over his left knee cap Also relates experiencing recurrent pain over the medial side of his left ankle for months - pain is mostly over the area behind the medial malleolus of the ankle Patient does not recall any recent injury or trauma to his left knee and ankle and denies any history of injury to the aforementioned joints when he was younger He continues to experience frequent neck pain and lower back pain, which are chronic Would like to get some Rx to help with his pain in the meantime - states that he only takes these as sparingly as possible He denies any other acute complaints or symptoms at present [facility] Medical History (Updated 11/30/23 @ 05:06 by Cam Chao MD) Pure hypercholesterolemia Cervical spondylosis with radiculopathy Lumbar back pain with radiculopathy affecting right lower extremity Erectile dysfunction Left knee pain Lumbar degenerative disc disease Cancer of upper lobe of right lung (~2019) Smoker Back pain Anxiety Surgical History Hx of colonoscopy Hx of left knee surgery Hx of laminectomy (~05/10/22) Status post shoulder surgery (~11/03/21) Status post partial lobectomy of lung (~07/2020) History of lumbar surgery (~06/17/14) History of surgical removal of lesion Family History Father No problems noted. Mother Hypertension Hyperlipidemia Asthma Stroke Osteoporosis Social History Housing: House Alcohol intake: former Patient Tobacco Use Status: Former Tobacco user Quit Date: 2019 Tobacco use type: Cigarette Years Smoked: 15 e-Cigarette/Vaping Use: Never Used Second Hand Smoke Exposure: Yes service: No Current occupational status: employed Cognitive needs: No Hearing needs: No Vision needs: Yes Questionnaire PHQ-9 Over the last 2 weeks, how often have you been bothered by any of the following problems? 1. Little interest or pleasure in doing things: not at all 2. Feeling down, depressed, or hopeless: not at all 3. Trouble falling or staying asleep, or sleeping too much: not at all 4. Feeling tired or having little energy: not at all 5. Poor appetite or overeating: not at all 6. Feeling bad about yourself - or that you are a failure or have let yourself or your family down: not at all 7. Trouble concentrating on things, such as reading the newspaper or watching television: not at all 8. Moving or speaking so slowly that other people could have noticed. Or the opposite - being so fidgety or restless that you have been moving around a lot more than usual: not at all 9. Thoughts that you would be better off or of hurting yourself in some way: not at all Total score: 0 Depression Screening Interpretation: Negative Depression Screening Done: Yes 17481 - PHQ-9 Billing: Yes Source: Developed by Drs. Hipolito Huitron, Roman Ramos and colleagues, with an educational melissa from [employer]. Thrive Questionnaire Date Thrive assessed: 11/29/23 I am a: Patient What is your living situation today?: I have a steady place to live Within the past 12 months, did the food you bought not last and you didn't have the money to get more?: Never true Within the past 12 months, did you worry whether your food would run out before you got money to buy more?: Never true Do you have trouble paying for medicines?: No Do you have trouble getting transportation to medical appointments?: No Do you have trouble paying your heating and electricity bill?: No Do you have trouble taking care of your child, family member or friend?: No Do you have trouble with day-to-day activities such as bathing, preparing meals, shopping, managing finances, etc.?: No Are you currently unemployed and looking for a job?: No Are you interested in more education?: No Please select the resources that you would like help with: None Currently or been in a relationship where the following occur: no concerns reported THRIVE Score: 0 AUDIT C Alcohol Use Questionnaire (AUDIT-C) 1. How often do you have a drink containing alcohol?: Never 3. How often do you have six or more drinks on one occasion?: Never Total Score: 0 Score Reviewed/Action Taken: Yes EMERSON-7 AMB Questionnaire EMERSON-7 Date EMERSON - 7 assessed: 11/29/23 Feeling nervous, anxious, or on edge: 0 = Not at all Not being able to stop or control worryin = Not at all Worrying too much about different things: 0 = Not at all Trouble relaxin = Not at all Being so restless that it is hard to sit still: 0 = Not at all Becoming easily annoyed or irritable: 0 = Not at all Feeling afraid as if something awful might happen: 0 = Not at all Total EMERSON-7 score (0-4 normal; 5-9 mild; 10-14 moderate; 15-21 severe): 0 Source: Developed by Emilia Herrera Kurt Kroenke and colleagues, with an educational melissa from [employer]. Review of Systems Const Denies chills, Denies fatigue, Denies fever(s) and Denies headache(s) ENT Denies dysphagia, Denies dizziness, Denies otalgia, Denies headache(s), Reports neck pain (especially on the left side - chronic), Denies odynophagia and Denies sore throat Card Denies chest pain, Denies palpitations and Denies dyspnea Resp Denies cough and Denies dyspnea GI Denies abdominal pain, Denies constipation, Denies dysphagia, Denies heartburn, Denies diarrhea, Denies nausea, Denies odynophagia and Denies vomiting Reports erectile dysfunction (recently), Denies dysuria, Denies nocturia and Denies urinary frequency Musc Reports back pain (chronic), Reports arthralgias (involving multiple joints - increased over left knee and ankle lately), Denies joint swelling and Reports neck pain (especially on the left side - chronic) Skin/Breast Denies rash Neuro Denies dizziness and Denies headache(s) Endo Denies fatigue and Denies palpitations Physical exam (Primary Care) Vital Signs: Last Vital Signs Pulse 105 H 11/29/23 16:31 BP 122/86 11/29/23 16:31 Pulse Ox 98 11/29/23 16:31 Oxygen Delivery Method Room Air 11/29/23 16:31 BMI result Body Mass Index 23.7 Tobacco/Smoking Status: Tobacco use Status Tobacco use date assessed 11/29/23 11/29/23 16:38 Patient Tobacco Use Status Former Tobacco user 11/29/23 16:38 Tobacco use type Cigarette 11/29/23 16:38 e-Cigarette/Vaping Use Never Used 11/29/23 16:38 PHQ-9: PHQ-9 Score PHQ-9: Total score 0 11/29/23 16:52 Depression Screening Interpretation: Negative Thrive Assessment: Date of Thrive Assessment Date Thrive assessed 11/29/23 11/29/23 16:38 Currently or been in a relationship where the following occur: no concerns reported Const General: no acute distress and alert HENMT Ears: TM's normal bilaterally and EAC's normal Throat: Yes posterior oropharynx normal and Yes tonsils normal (no TP congestion) Neck Neck: Yes no lymphadenopathy and Yes supple Thyroid: Thyroid normal Resp Auscultation: clear to auscultation bilaterally, no rales and no wheezes Cardio Rate: regular rate Rhythm: regular rhythm Heart sounds: no murmurs GI Palpation (GI): Soft to palpation and nontender Auscultation: normal bowel sounds Back/Spine/Pelvis Cervical Spine: cervical muscular tenderness (left-sided) and Cervical spine tenderness Thoracic/Lumbar Spine: lumbar spinal tenderness Skin Rashes: no rashes Extrem General: Yes no clubbing, cyanosis or edema Left lower extremity: knee Details: tenderness Location: of the pre-patellar area; no swelling and ankle Details: tenderness (behind the medial malleolar area); no swelling Assessment and Plan Assessment & Plan (1) Left ankle pain: Code(s): M25.572 - Pain in left ankle and joints of left foot Qualifiers: Chronicity: unspecified Qualified Code(s): M25.572 - Pain in left ankle and joints of left foot Plan: Symptoms are primarily over the area just behind the medial malleolus of the left ankle Will send patient for left ankle x-rays for further evaluation (2) Patellofemoral pain syndrome of both knees: Code(s): M22.2X1 - Patellofemoral disorders, right knee; M22.2X2 - Patellofemoral disorders, left knee Plan: X-rays of the left knee back in 11/2020 revealed (+) minimal medial and patellofemoral compartment arthrosis He was sent for repeat x-rays of the left knee back in February 2023 for further evaluation but he did not get these done; will send him again for repeat left knee x-rays for further evaluation He was also referred back then to physical therapy for both his knee and his lower back but he did not pursue these back then Follow up with orthopedics as scheduled (3) Cancer of upper lobe of right lung: Onset Date: ~2019 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 Yost Follow up CT in 6 months, done on 07/29/2021, came out normal/negative - stable findings with no abnormal new lung nodules seen Subsequent follow up exams have also been negative so far His most recent 1 year follow up chest CT done on 02/26/2023 revealed no evidence of disease recurrence; was seen by Dr. Yost back on 03/03/2023 and was reportedly declared 'cancer-free' Follow up with Dr. Yost as scheduled for continuing surveillance (4) Pure hypercholesterolemia: Code(s): E78.00 - Pure hypercholesterolemia, unspecified Plan: Has not had his cholesterol levels checked in a while - total cholesterol was at 272 mg/dl and LDL cholesterol was at 170 mg/dl when they were last checked on 10/04/2021 Reinforced low cholesterol diet Will recheck his labs and fasting lipids in 4 months for follow up (5) Lumbar degenerative disc disease: Comment: S/P diskectomy with interbody fusion L5-S1 with titanium cage and INFUSE (Dr. Acuna and Dr. Green) on 07/01/2014 Code(s): M51.36 - Other intervertebral disc degeneration, lumbar region Plan: Reinforced activity and weight-lifting restrictions Continue Gabapentin 300 mg TID and Tizanidine 6 mg TID PRN Follow up with [facility] [place] [facility] as scheduled Will again provide patient again with a small supply of Oxycodone 5 mg to take as sparingly as he can and only for severe pain - Rx is for #20 tabs with no refills and reminded patient again that we have NO plans to continue him on opioids long-term or indefinitely (6) Cervical spondylosis with radiculopathy: Code(s): M47.22 - Other spondylosis with radiculopathy, cervical region Plan: S/P left C6-7 foraminotomy with microscopic dissection by Dr. Redman on 05/10/22 Follow up with neurosurgery as scheduled (7) AC joint arthropathy: Comment: S/P distal clavicle excision and subacromial decompression (left shoulder) on 11/03/[address] Dias Code(s): M19.019 - Primary osteoarthritis, unspecified shoulder Plan: MRI of the left shoulder done back in October 2021 revealed supraspinatus tendinosis with distal bursal surface fraying/partial tearing measuring 1.6 x 1.3 cm (AP by ML), and moderate acromioclavicular osteoarthritis Follow up with orthopedics as scheduled (8) Erectile dysfunction: Code(s): N52.9 - Male erectile dysfunction, unspecified Qualifiers: Erectile dysfunction type: unspecified Qualified Code(s): N52.9 - Male erectile dysfunction, unspecified Plan: Continue Sildenafil 50 mg PRN Plan To return in 4 months for his annual physical examination Orders: Orders Comprehensive [place]. Panel Fast 4 Months E78.00 - Pure hypercholesterolemia, unspecified Lipid Panel 4 Months E78.00 - Pure hypercholesterolemia, unspecified TSH reflex Free T4 4 Months E78.00 - Pure hypercholesterolemia, unspecified Prostate Specific Antigen Scr 4 Months Z00.00 - Encounter for general adult medical examination without abnormal findings XR ankle LT min 3V 11/29/23 M25.572 - Pain in left ankle and joints of left foot XR knee LT 3V 24 M25.562 - Pain in left knee Complete Blood Count Auto Diff 4 Months D64.9 - Anemia, unspecified UA CC w/rflx Micro + Cult 4 Months R30.0 - Dysuria Vitamin D 25-OH Total 4 Months E55.9 - Vitamin D deficiency, unspecified Medications: Refilled oxycodone Take NEEDED ONLY for SEVERE PAIN 5 mg PO Q6-8H PRN 20 tabs 0RF pain M22.2X2 - Patellofemoral disorders, left knee, M51.36 - Other intervertebral disc degeneration, lumbar region tizanidine 6 mg (1.5 x 4 mg) PO TID PRN 135 tabs 2RF for muscle spasm M62.838 - Other muscle spasm Coding Level of Care Code Est Pt Level 4 (25028) Diagnoses Left ankle pain, unspecified chronicity M25.572 Chronicity: unspecified Patellofemoral pain syndrome of both knees M22.2X1; M22.2X2 Cancer of upper lobe of right lung C34.11 Pure hypercholesterolemia E78.00 Lumbar degenerative disc disease M51.36 Cervical spondylosis with radiculopathy M47.22 AC joint arthropathy M19.019 Erectile dysfunction, unspecified erectile dysfunction type N52.9 Erectile dysfunction type: unspecified
[2023-11-29 16:31] VITALS: BP 122/86; PULSE 105; O2SAT 98; BMI 23.7
== END 2023-11-29 16:57 | disposition home or self-care (01) ==
PROVIDERS: PCP Internal Medicine; Visit Provider Internal Medicine
DX: M25.572 Pain in left ankle and joints of left foot (principal); M22.2X1 Patellofemoral disorders, right knee; M22.2X2 Patellofemoral disorders, left knee; C34.11 Malignant neoplasm of upper lobe, right bronchus or lung; E78.00 Pure hypercholesterolemia, unspecified; M51.36 Other intervertebral disc degeneration, lumbar region; M47.22 Other spondylosis with radiculopathy, cervical region; M19.019 Primary osteoarthritis, unspecified shoulder; N52.9 Male erectile dysfunction, unspecified
CPT/HCPCS: 99214

== ENCOUNTER 2023-12-06 14:25 | Outpatient (REF) | payer OTHER, SELFPAY ==
--- NOTE | ~2023-12-06 | XR_ITS ---
EXAMINATION: XR KNEE, LEFT CLINICAL INFORMATION: Left knee pain COMPARISON: Left knee x-ray on 11/17/2020 TECHNIQUE: Three views of the left knee. FINDINGS: BONES: Bony structures are intact. There is no focal bone destruction or periosteal reaction seen. JOINTS: Alignment of joints is normal. There is persistent mild decrease in medial compartment left knee joint space. SOFT TISSUE: Soft tissue is normal. No radiopaque foreign body or abnormal air collection is seen. XR/XR knee LT 3V IMPRESSION: 1. Unchanged mild medial compartment left tibiofemoral joint osteoarthritis. 2. No fracture or dislocation or signs of osteomyelitis are found.
--- NOTE | ~2023-12-06 | XR_ITS ---
EXAMINATION: XR ANKLE, LEFT CLINICAL INFORMATION: Left ankle pain COMPARISON: None available. TECHNIQUE: AP, lateral, and mortise views of the left ankle. FINDINGS: BONES: Bony structures are intact. A tiny left dorsal calcaneal spur is present. There is no focal bone destruction or periosteal reaction seen. JOINTS: Alignment of joints is normal. SOFT TISSUE: Soft tissue is normal. No radiopaque foreign body or abnormal air collection is seen. XR/XR ankle LT min 3V IMPRESSION: 1. A tiny left dorsal calcaneal spur is present. 2. No fracture or dislocation or signs of osteomyelitis are found.
== END 2023-12-06 14:26 | disposition home or self-care (01) ==
LOC: HO.XRAY 14:25
PROVIDERS: PCP Internal Medicine; Visit Provider Internal Medicine
DX: M25.572 Pain in left ankle and joints of left foot (principal); M25.562 Pain in left knee
CPT/HCPCS: 73562; 73610

== ENCOUNTER 2024-03-25 17:30 | Outpatient (AMB) | payer OTHER, SELFPAY ==
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
[2024-03-25 17:34] VITALS: BP 130/80; BMI 23.7
== END 2024-03-25 18:00 | disposition home or self-care (01) ==
PROVIDERS: PCP Internal Medicine; Visit Provider Internal Medicine
DX: Z00.00 Encounter for general adult medical examination without abnormal findings (principal); E78.00 Pure hypercholesterolemia, unspecified; C34.11 Malignant neoplasm of upper lobe, right bronchus or lung; J02.9 Acute pharyngitis, unspecified; M22.2X1 Patellofemoral disorders, right knee; M22.2X2 Patellofemoral disorders, left knee; M51.36 Other intervertebral disc degeneration, lumbar region; M47.22 Other spondylosis with radiculopathy, cervical region; M19.019 Primary osteoarthritis, unspecified shoulder; N52.9 Male erectile dysfunction, unspecified
CPT/HCPCS: 99396

== ENCOUNTER 2024-04-22 08:38 | Outpatient (REF) | payer OTHER, SELFPAY ==
--- NOTE | ~2024-04-22 | XR_ITS ---
EXAMINATION: XR KNEE, RIGHT CLINICAL INFORMATION: Pain in the right knee COMPARISON: X-rays of the right knee July 2015 TECHNIQUE: Four views of the right knee. FINDINGS: There is a 9 mm oval ossific density in the intercondylar notch adjacent or attached to the lateral tibial spine. The bones joints and soft tissues are otherwise unremarkable. XR/XR knee RT 4V IMPRESSION: 9 mm ossific density in the intercondylar notch. Question loose body. This is not present on prior x-ray in 2014
[2024-04-22 09:01] LABS: MANUAL DIFF FLAG NO
[2024-04-22 09:31] LABS: Basophils Absolute Auto 0.1 X10*3/uL (0.0-0.2); Basophils Percent Auto 1.4 % (0-2); Eosinophils Absolute Auto 0.3 X10*3/uL (0.0-0.4); Eosinophils Percent Auto 5.7 % (0-4); Hematocrit 45.2 % (42.0-52.0); Hemoglobin 15.1 g/dl (14.0-18.0); Imm Gran Abs Auto 0.01 X10*3/uL (0.00-0.03); Imm Gran Pct Auto 0.2 % (0.0-0.4); Lymphocytes Absolute Auto 1.7 X10*3/uL (1.2-4.9); Lymphocytes Percent Auto 34.1 % (20-40); Mean Corpuscular HGB Conc 33.4 g/dl (31.0-36.0); Mean Corpuscular Hemoglobin 30.3 pg (27.0-33.0); Mean Corpuscular Volume 90.8 fL (80.0-98.0); Mean Platelet Volume 8.9 fL (9.4-12.4); Monocytes Absolute Auto 0.6 X10*3/uL (0.1-1.2); Monocytes Percent Auto 11.5 % (2-11); Neutrophils Absolute Auto 2.4 x10*3/uL (2.0-8.3); Neutrophils Percent Auto 47.1 % (45-73); Platelet Count 386 X10*3/uL (160-400); Red Blood Count 4.98 X10*6/uL (4.60-5.80); Red Cell Distribution Width 13.6 % (11.0-16.0); White Blood Count 5.1 X10*3/uL (4.8-10.8)
[2024-04-22 10:04] LABS: Alanine Aminotransferase 35 U/L (0-40); Albumin Level 4.4 g/dL (3.5-5.0); Alkaline Phosphatase 54 U/L (39-117); Anion Gap 11 (12-20); Aspartate Amino Transferase 39 U/L (5-37); Bilirubin Total 0.5 mg/dL (0.0-1.0); Blood Urea Nitrogen 11 mg/dL (9-16); Calcium 9.2 mg/dL (8.4-10.2); Carbon Dioxide 29 mmol/L (22-29); Chloride 106 mmol/L (96-108); Cholesterol 253 mg/dL (<200); Estimated Glomerular Filt Rate > 60; Glucose Fasting 99 mg/dL (60-99); HDL Cholesterol 52 mg/dL (>40); LDL Cholesterol Calculated 150 mg/dL (<100); Potassium 4.1 mmol/L (3.3-5.1); Sodium 142 mmol/L (135-145); Triglycerides 258 mg/dL (<150)
[2024-04-22 10:15] LABS: Prostate Specific Antigen Scr 1.35 ng/mL (<0.05-4.0)
[2024-04-22 10:21] LABS: Vitamin D 25-OH Total 48.5 ng/mL (>30)
[2024-04-22 11:05] LABS: Appearance Urine Clear; Color Urine Yellow; Glucose Urine UA Negative (Negative); Leukocyte Esterase Urine Negative (Negative); Nitrite Urine Negative (Negative); Specific Gravity - Urine 1.015 (1.005-1.025); Urine Blood Negative (Negative); Urine Ketones Negative (Negative); Urine Protein Negative (Neg-Trace)
== END 2024-04-22 08:39 | disposition home or self-care (01) ==
LOC: HO.LAB 08:38
PROVIDERS: PCP Internal Medicine; Visit Provider Internal Medicine
DX: Z00.00 Encounter for general adult medical examination without abnormal findings (principal); M25.561 Pain in right knee; E78.00 Pure hypercholesterolemia, unspecified; D64.9 Anemia, unspecified; R30.0 Dysuria; E55.9 Vitamin D deficiency, unspecified
CPT/HCPCS: 36415; 73564; 80053; 80061; 81003; 82306; 84153; 84443; 85025

== ENCOUNTER 2024-04-25 13:50 | Outpatient (AMB) | payer OTHER, SELFPAY ==
--- NOTE | 2024-04-25 14:24 | MHC.OFFVIS ---
Intake Visit Reasons: New Prob- Lt Knee OA Intake Note: Emil is a 48 year old male who presnets today for a new problem visit with complaints of left knee pain. He reports that he has increased pain with prolonged walking and kneelig. He also exlains that he has random bruising at the base of the patella Hx of left knee in 2012 - left knee lysis of adhesions and quadriceps tendinosis repair Allergies codeine [From TYLENOL-CODEINE #3] Adverse Reaction (Intermediate, Verified 04/25/24 14:28) PALPITATIONS tramadol [TRAMADOL] Adverse Reaction (Intermediate, Verified 04/25/24 14:28) PALPITATION/SHAKINESS HPI HPI New Prob- Lt Knee OA: Details: Emil is a 48 year old male who presents today for a new problem visit with complaints of left knee pain. He reports that he has increased pain with prolonged walking and kneeling. 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 [facility] Medical History Pure hypercholesterolemia Cervical spondylosis with radiculopathy Lumbar back pain with radiculopathy affecting right lower extremity Erectile dysfunction Left knee pain Lumbar degenerative disc disease Cancer of upper lobe of right lung (~2019) Smoker Back pain Anxiety Surgical History Hx of colonoscopy Hx of left knee surgery Hx of laminectomy (~05/10/22) Status post shoulder surgery (~11/03/21) Status post partial lobectomy of lung (~07/2020) History of lumbar surgery (~06/17/14) History of surgical removal of lesion Family History Father No problems noted. Mother Hypertension Hyperlipidemia Asthma Stroke Osteoporosis Social History Housing: House Alcohol intake: former Patient Tobacco Use Status: Former Tobacco user Tobacco use type: Cigarette Years Smoked: 15 e-Cigarette/Vaping Use: Never Used Second Hand Smoke Exposure: Yes service: No Current occupational status: employed Current occupational exposures/hazards: No Cognitive needs: No Hearing needs: No Vision needs: Yes Physical Exam Extrem Other: Right knee with focal right superolateral patella without swelling or effusion. mild pain with resisted klnee extension Left knee with trace effusion and retropatellar TTP. Full ROM bilateral knees Stable ligamentous exam bilaterally Office Procedures Joint Injection/Drain Joint Injection/Drain Details: Injected 1 mL of Decadron and 3 mL 1% lidocaine and 3 mL of 0.25% Marcaine. Site was prepped using aseptic technique. Patient tolerated the procedure well. Primary Site: left knee Approach Used: anterolateral Coding 18241 - Large joint Procedure code (CPT) selection complete Results Reviewed Results Reviewed: I personally reviewed relevant radiographs. Unremarkable radiographs bilateral knees Assessment & Plan Assessment & Plan (1) Primary osteoarthritis of left knee: Code(s): M17.12 - Unilateral primary osteoarthritis, left knee Category: Medical Plan: I injected his left knee. He has responded to such injections in the past (2) Tendinitis of right quadriceps tendon: Code(s): M76.891 - Other specified enthesopathies of right lower limb, excluding foot Category: Medical Plan: RIght knee patellar tendonitis. I recommend icing PT and cessation of exercises that exacerbate knee. F/u as needed if no improvement. Orders: Orders PT Evaluation and Treatment Today M76.891 - Other specified enthesopathies of right lower limb, excluding foot Coding Level of Care Code Est Pt Level 4 (92361) Diagnoses Primary osteoarthritis of left knee M17.12 Tendinitis of right quadriceps tendon M76.891 CPT Codes Coding - Large joint: 36837 - Large joint ([id number])
== END 2024-04-25 15:12 | disposition home or self-care (01) ==
PROVIDERS: PCP Internal Medicine; Visit Provider Orthopaedic Surgery
DX: M17.12 Unilateral primary osteoarthritis, left knee (principal); M76.891 Other specified enthesopathies of right lower limb, excluding foot
CPT/HCPCS: 20610; 99214

== ENCOUNTER → 2024-04-25 13:50 | Outpatient (BNVA) | payer OTHER, SELFPAY | PROVIDERS: PCP Internal Medicine; Visit Provider Orthopaedic Surgery | DX: M17.12 Unilateral primary osteoarthritis, left knee (principal); M76.891 Other specified enthesopathies of right lower limb, excluding foot | CPT/HCPCS: 20610; 99212; J0665; J1100 ==

== ENCOUNTER 2024-06-26 17:00 | Outpatient (RCR) | payer OTHER, SELFPAY ==
--- NOTE | 2024-06-18 18:22 | MHC.PT.EP ---
[facility] [place] Office [place] Office [place] Office [address] [phone] F: [phone] F: [phone] F: [phone] F: [phone] Physical Therapy Plan of Care Date of Evaluation: 06/18/24 Date of Surgery: Diagnosis: Other specified enthesopathies of right lower limb, excluding foot Tendinitis of right quadriceps tendon Assessment: Pt is a pleasant 48yo M who presents to PT with right knee pain. Pt presents to PT with current impairments in pain, decreased quad strength, decreased hip strength, soft tissue restrictions, and impaired balance. He is limited functionally by kneeling, twisting, pivoting, going down the stairs, walking, and sleeping. He is a good candidate for skilled PT in order to address current impairments to facilitate return to PLOF. He is recommended to be seen 2x/week for 4 weeks and will be reassessed at that time Frequency and Duration: The patient will be seen 2x/week for 4 weeks Short Term Goals: Pt will be I with HEP to promote self management of symptoms Pt will improve right quad strength to at least 4+/5 Photograph Finisher Goals: Pt will achieve full knee strength to assist with stair navigation Pt will demonstrate improvements in function as evidenced by statistically significant improvement in LEFI outcome measure Treatment Plan: Modalities to reduce pain, spasms and effusion. Manual therapy to restore motion and function. Therapeutic exercise to improve strength and flexibility. Neuromuscular re-education for posture and balance. Therapeutic activities to return to functional activities of daily living. Electronically signed by: Priscila Lazo, PT, DPT Please sign and return to therapist. Thank you for your referral.
--- NOTE | 2024-09-02 09:04 | MHC.PT.DC ---
[facility] [place] Office [place] Office [place] Office [address] Brook Atkins [address] [phone] F: [phone] F: [phone] F: [phone] F: [phone] Physical Therapy Discharge Report Diagnosis: Other specified enthesopathies of right lower limb, excluding foot Tendinitis of right quadriceps tendon Date of Surgery: Date of Evaluation: 06/18/24 Date of Discharge: 09/02/24 Treatments to Date: 2 Cancellations to Date: 1 No Shows to Date: 1 Discharge Status: Visit Non-compliance Discharge Summary: Pt was seen for PT from 06/18/24-06/26/24. His last attended appointment was 06/26/24. He attended PT evaluation and 1 treatment session. He had 1 cancellation and 1 no-show appointment for his last 2 scheduled PT appointments. He is being D/C from skilled PT as he has not attended or called to reschedule in > 30 days. Pt current level of function unknown at this time Electronically signed by: Priscila Lazo, PT, DPT Please sign and return to therapist. Thank you for your referral.
== END 2024-09-02 09:04 | disposition home or self-care (01) ==
LOC: HO.PT 17:00
PROVIDERS: PCP Internal Medicine; Visit Provider Orthopaedic Surgery
DX: M76.891 Other specified enthesopathies of right lower limb, excluding foot (principal)
CPT/HCPCS: 97110; 97161

== ENCOUNTER 2024-07-26 16:39 | Outpatient (AMB) | payer OTHER, SELFPAY ==
--- NOTE | 2024-07-26 16:50 | A.OFFPC_ITS ---
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: No Accompanied by: Self / Same As Patient Allergies codeine [From TYLENOL-CODEINE #3] Adverse Reaction (Intermediate, Verified 07/26/24 17:20) PALPITATIONS tramadol [TRAMADOL] Adverse Reaction (Intermediate, Verified 07/26/24 17:20) PALPITATION/SHAKINESS Medication List - Last Reconciled 07/26/24 by Cam Chao MD oxycodone 5 mg PO Q6-8H PRN tizanidine 6 mg (1.5 x 4 mg) PO TID PRN Tobacco use date assessed: 07/26/24 Dental Screening Dental Screen Date: 07/26/24 Did you have a dental visit in the last 12 months?: Yes Did you have a dental problem in the last 6 months where you did not have access to dental care?: No Was dental information given to patient?: Patient has dentist HPI OA, hyperlipidemia, Hx lung cancer HPI Details Patient comes in today for his follow up visit States that he has been experiencing increasing pain in his neck again over the past few months now He denies any recent injury or trauma Relates that this is the most pain that he has been experiencing in his neck since his cervical discectomy with Dr. Redman back in 2021 He has been taking a lot of OTC Ibuprofen over the past couple of months without any relief and he recently stopped taking them as he was concerned about the side effects of taking too many Ibuprofen for so long Is requesting for something stronger for just a few days so he can get some sleep at night Also needs his Tizanidine Rx refilled He denies any headaches or dizziness Denies any chest pains, no increased SOB No nausea/vomiting, no abdominal pain No change in bowel habits noted He would also like to know how he did on his labs done a few months ago [facility] Medical History Pure hypercholesterolemia Cervical spondylosis with radiculopathy Lumbar back pain with radiculopathy affecting right lower extremity Erectile dysfunction Left knee pain Lumbar degenerative disc disease Cancer of upper lobe of right lung (~2019) Smoker Back pain Anxiety Surgical History Hx of colonoscopy Hx of left knee surgery Hx of laminectomy (~05/10/22) Status post shoulder surgery (~11/03/21) Status post partial lobectomy of lung (~07/2020) History of lumbar surgery (~06/17/14) History of surgical removal of lesion Family History Father No problems noted. Mother Hypertension Hyperlipidemia Asthma Stroke Osteoporosis Social History Housing: House Alcohol intake: former Patient Tobacco Use Status: Former Tobacco user Tobacco use type: Cigarette Years Smoked: 15 e-Cigarette/Vaping Use: Never Used Second Hand Smoke Exposure: Yes service: No Current occupational status: employed Current occupational exposures/hazards: No Cognitive needs: No Hearing needs: No Vision needs: Yes Questionnaire PHQ-9 Over the last 2 weeks, how often have you been bothered by any of the following problems? 1. Little interest or pleasure in doing things: not at all 2. Feeling down, depressed, or hopeless: not at all 3. Trouble falling or staying asleep, or sleeping too much: not at all 4. Feeling tired or having little energy: not at all 5. Poor appetite or overeating: not at all 6. Feeling bad about yourself - or that you are a failure or have let yourself or your family down: not at all 7. Trouble concentrating on things, such as reading the newspaper or watching television: not at all 8. Moving or speaking so slowly that other people could have noticed. Or the opposite - being so fidgety or restless that you have been moving around a lot more than usual: not at all 9. Thoughts that you would be better off or of hurting yourself in some way: not at all Total score: 0 Depression Screening Interpretation: Negative Depression Screening Done: Yes 18573 - PHQ-9 Billing: Yes Source: Developed by Drs. Hipolito Huitron, Emilia Chisholm, Roman Deng and colleagues, with an educational melissa from [employer]. Thrive Questionnaire Date Thrive assessed: 07/26/24 I am a: Patient What is your living situation today?: I have a steady place to live Within the past 12 months, did the food you bought not last and you didn't have the money to get more?: Never true Within the past 12 months, did you worry whether your food would run out before you got money to buy more?: Never true Do you have trouble paying for medicines?: No Do you have trouble getting transportation to medical appointments?: No Do you have trouble paying your heating and electricity bill?: No Do you have trouble taking care of your child, family member or friend?: No Do you have trouble with day-to-day activities such as bathing, preparing meals, shopping, managing finances, etc.?: No Are you currently unemployed and looking for a job?: No Are you interested in more education?: No Please select the resources that you would like help with: None Currently or been in a relationship where the following occur: No concerns reported THRIVE Score: 0 AUDIT C Alcohol Use Questionnaire (AUDIT-C) 1. How often do you have a drink containing alcohol?: Never 3. How often do you have six or more drinks on one occasion?: Never Total Score: 0 Score Reviewed/Action Taken: Yes EMERSON-7 AMB Questionnaire EMERSON-7 Date EMERSON - 7 assessed: 07/26/24 Feeling nervous, anxious, or on edge: 0 = Not at all Not being able to stop or control worryin = Not at all Worrying too much about different things: 0 = Not at all Trouble relaxin = Not at all Being so restless that it is hard to sit still: 0 = Not at all Becoming easily annoyed or irritable: 0 = Not at all Feeling afraid as if something awful might happen: 0 = Not at all Total EMERSON-7 score (0-4 normal; 5-9 mild; 10-14 moderate; 15-21 severe): 0 Source: Developed by Drs. Hipolito Huitron, Emilia Chisholm, Roman Deng and colleagues, with an educational melissa from [employer]. Review of Systems Const Denies chills, Reports fatigue, Denies fever(s) and Denies headache(s) ENT Denies dysphagia, Denies dizziness, Denies otalgia, Denies headache(s), Reports neck pain (especially on the left side - chronic but increasing lately), Denies odynophagia and Denies sore throat Card Denies chest pain, Denies palpitations and Denies dyspnea Resp Denies chest congestion, Denies cough and Denies dyspnea GI Denies abdominal pain, Denies constipation, Denies dysphagia, Denies heartburn, Denies diarrhea, Denies nausea, Denies odynophagia and Denies vomiting Reports erectile dysfunction (recently), Denies dysuria, Denies nocturia and Denies urinary frequency Musc Reports back pain (chronic), Reports arthralgias (involving multiple joints, especially over his left elbow recently), Denies joint swelling and Reports neck pain (especially on the left side - chronic but increasing lately) Skin/Breast Denies rash Neuro Denies dizziness and Denies headache(s) Psych Denies anxiety Endo Reports fatigue and Denies palpitations Physical exam (Primary Care) Vital Signs: Last Vital Signs Pulse 96 07/26/24 16:51 BP 136/88 07/26/24 16:51 Pulse Ox 98 07/26/24 16:51 Oxygen Delivery Method Room Air 07/26/24 16:51 BMI result Body Mass Index 23.9 Tobacco/Smoking Status: Tobacco use Status Tobacco use date assessed 07/26/24 07/26/24 16:53 Patient Tobacco Use Status Former Tobacco user 07/26/24 16:53 Tobacco use type Cigarette 07/26/24 16:53 e-Cigarette/Vaping Use Never Used 07/26/24 16:53 PHQ-9: PHQ-9 Score PHQ-9: Total score 0 07/26/24 17:21 Depression Screening Interpretation: Negative Thrive Assessment: Date of Thrive Assessment Date Thrive assessed 07/26/24 07/26/24 16:59 Currently or been in a relationship where the following occur: No concerns reported Const General: no acute distress and alert HENMT Ears: TM's normal bilaterally and EAC's normal Throat: Yes posterior oropharynx normal and Yes tonsils normal Neck Neck: Yes no lymphadenopathy and Yes supple Thyroid: Thyroid normal Resp Auscultation: clear to auscultation bilaterally, no rales and no wheezes Cardio Rate: regular rate Rhythm: regular rhythm Heart sounds: no murmurs GI Palpation (GI): Soft to palpation and nontender Auscultation: normal bowel sounds General: Yes no CVA tenderness Back/Spine/Pelvis Back: no CVA tenderness Cervical Spine: cervical muscular tenderness (left-sided) and Cervical spine tenderness Thoracic/Lumbar Spine: lumbar spinal tenderness Skin Rashes: no rashes Extrem General: Yes no clubbing, cyanosis or edema Left upper extremity: elbow/forearm Details: tenderness Location: of the lateral epicondyle; no swelling Left lower extremity: knee Details: tenderness Location: of the pre-patellar area; no swelling and ankle Details: tenderness (behind the medial malleolar area); no swelling Results Reviewed Results Reviewed: Laboratory Tests 04/22/24 04/22/24 08:55 08:59 WBC 5.1 Hgb 15.1 Hct 45.2 Plt Count 386 Sodium 142 Potassium 4.1 Creatinine 0.85 Estimated GFR > 60 Fasting Glucose 99 Calcium 9.2 D AST 39 H ALT 35 Triglycerides 258 H Cholesterol 253 H LDL Cholesterol, Calc 150 H HDL Cholesterol 52 PSA Screen 1.35 25-OH Vitamin D Total 48.5 TSH 2.10 Ur Specific [place] 1.015 Urine Protein Negative Urine Glucose (UA) Negative Urine Blood Negative Urine Nitrite Negative Ur Leukocyte Esterase Negative Assessment and Plan Assessment & Plan (1) Pure hypercholesterolemia: Code(s): E78.00 - Pure hypercholesterolemia, unspecified Plan: Results of his labs done back in April 2024 reviewed and discussed with patient - have advised patient that his cholesterol levels, especially his total and LDL cholesterol and triglyceride, are still elevated and have only improved slightly from a couple of years ago Reinforced low cholesterol diet - low cholesterol diet info again provided to patient in the office today Will recheck his labs and fasting lipids in about 4 months for follow up (2) Cancer of upper lobe of right lung: Onset Date: ~2019 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 Yost Follow up CT in 6 months, done on 07/29/2021, came out normal/negative - stable findings with no abnormal new lung nodules seen Subsequent follow up exams have also been negative so far His 1 year follow up chest CT done on 02/26/2023 revealed no evidence of disease recurrence; was seen by Dr. Yost back on 03/03/2023 and was reportedly declared 'cancer-free' His most recent chest CT on 04/26/2024 also came out negative for recurrence Follow up with Dr. Yost as scheduled for continuing surveillance (3) Patellofemoral pain syndrome of both knees: Code(s): M22.2X1 - Patellofemoral disorders, right knee; M22.2X2 - Patellofemoral disorders, left knee Plan: X-rays of the left knee back in 11/2020 revealed (+) minimal medial and patellofemoral compartment arthrosis Repeat x-rays of the left knee done in November 2023 revealed similar findings - (+) mild medial compartment left tibiofemoral joint osteoarthritis. He was referred back to physical therapy for both his knee and his lower back last year but he did not pursue these back then Right knee x-rays done back in April 2024 revealed (+) 9 mm ossific density in the intercondylar notch that was not present on his prior x-rays done in 2014 - question loose body Follow up with orthopedics as scheduled (4) Lumbar degenerative disc disease: Comment: S/P diskectomy with interbody fusion L5-S1 with titanium cage and INFUSE (Dr. Acuna and Dr. Green) on 07/01/2014 Code(s): M51.36 - Other intervertebral disc degeneration, lumbar region Plan: Reinforced activity and weight-lifting restrictions Continue Tizanidine 6 mg TID PRN; he stopped taking Gabapentin a while back due to side effects He was referred to and was previously following up with [facility] but it appears that he did not go back to see them after he was told he needs to try physical therapy first and if no improvement, will then consider injection treatments Per request, will again provide patient with a small supply of Oxycodone 5 mg to take as sparingly as he can and only for severe pain - Rx is for #20 tabs with no refills I have again reminded patient that I have NO plans to continue him on opioids long-term or indefinitely and I am not accepting any more patients for chronic opioid Rx and I personally DO NOT believe in the efficacy or rationale of long- term opioid Rx for chronic pain as they always never end well and the efficacy do not last indefinitely (5) Cervical spondylosis with radiculopathy: Code(s): M47.22 - Other spondylosis with radiculopathy, cervical region Plan: S/P left C6-7 foraminotomy with microscopic dissection by Dr. Redman on 05/10/22 He has been experiencing increasing pain again in his neck recently Will send him for repeat cervical spine x-rays for further evaluation; will likely need MRI again at some point Will also try to refer him back to Dr. Redman for further evaluation and management (6) AC joint arthropathy: Comment: S/P distal clavicle excision and subacromial decompression (left shoulder) on 11/03/[address] Dias Code(s): M19.019 - Primary osteoarthritis, unspecified shoulder Plan: MRI of the left shoulder done back in October 2021 revealed supraspinatus tendinosis with distal bursal surface fraying/partial tearing measuring 1.6 x 1.3 cm (AP by ML), and moderate acromioclavicular osteoarthritis Follow up with orthopedics as scheduled (7) Left elbow pain: Code(s): M25.522 - Pain in left elbow Plan: He is advised that his recent left elbow pain is likely due to lateral epicondylitis and options would be physical therapy or cortisone injection from orthopedics, if appropriate Patient states that he will just follow up with Dr. Dias for this (8) Erectile dysfunction: Code(s): N52.9 - Male erectile dysfunction, unspecified Qualifiers: Erectile dysfunction type: unspecified Qualified Code(s): N52.9 - Male erectile dysfunction, unspecified Plan: Continue Sildenafil 50 mg PRN Plan Follow up in 4 months Orders: Orders TSH reflex Free T4 4 Months E78.00 - Pure hypercholesterolemia, unspecified UA CC w/rflx Micro + Cult 4 Months R30.0 - Dysuria Vitamin D 25-OH Total 4 Months E55.9 - Vitamin D deficiency, unspecified XR cervical spine 3V Today M54.2 - Cervicalgia Comprehensive [place]. Panel Fast 4 Months E78.00 - Pure hypercholesterolemia, unspecified Lipid Panel 4 Months E78.00 - Pure hypercholesterolemia, unspecified Complete Blood Count Auto Diff 4 Months D64.9 - Anemia, unspecified Referrals Neurosurgery Referral M47.22 - Other spondylosis with radiculopathy, cervical region Medications: Refilled oxycodone Take NEEDED ONLY for SEVERE PAIN 5 mg PO Q6-8H PRN 20 tabs 0RF pain M22.2X2 - Patellofemoral disorders, left knee, M51.36 - Other intervertebral disc degeneration, lumbar region tizanidine 6 mg (1.5 x 4 mg) PO TID PRN 135 tabs 2RF for muscle spasm M62.838 - Other muscle spasm Coding Level of Care Code Est Pt Level 4 (81417) Complex EM visit Add On G2211 Diagnoses Pure hypercholesterolemia E78.00 Cancer of upper lobe of right lung C34.11 Patellofemoral pain syndrome of both knees M22.2X1; M22.2X2 Lumbar degenerative disc disease M51.36 Cervical spondylosis with radiculopathy M47.22 AC joint arthropathy M19.019 Left elbow pain M25.522 Erectile dysfunction, unspecified erectile dysfunction type N52.9 Erectile dysfunction type: unspecified
[2024-07-26 16:51] VITALS: BP 136/88; PULSE 96; O2SAT 98; BMI 23.9
== END 2024-07-26 17:29 | disposition home or self-care (01) ==
PROVIDERS: PCP Internal Medicine; Visit Provider Internal Medicine
DX: E78.00 Pure hypercholesterolemia, unspecified (principal); C34.11 Malignant neoplasm of upper lobe, right bronchus or lung; M22.2X1 Patellofemoral disorders, right knee; M22.2X2 Patellofemoral disorders, left knee; M51.36 Other intervertebral disc degeneration, lumbar region; M47.22 Other spondylosis with radiculopathy, cervical region; M19.019 Primary osteoarthritis, unspecified shoulder; M25.522 Pain in left elbow; N52.9 Male erectile dysfunction, unspecified

== ENCOUNTER → 2024-07-26 16:39 | Outpatient (BNVA) | payer OTHER, SELFPAY | PROVIDERS: PCP Internal Medicine; Visit Provider Internal Medicine | DX: E78.00 Pure hypercholesterolemia, unspecified (principal); C34.11 Malignant neoplasm of upper lobe, right bronchus or lung; M22.2X2 Patellofemoral disorders, left knee; M22.2X1 Patellofemoral disorders, right knee; M51.36 Other intervertebral disc degeneration, lumbar region; M47.22 Other spondylosis with radiculopathy, cervical region | CPT/HCPCS: 99212 ==

== ENCOUNTER 2024-08-05 08:21 | Outpatient (AMB) | payer OTHER, SELFPAY ==
[2024-08-05 08:25] VITALS: BMI 23.9
--- NOTE | 2024-08-05 08:25 | MHC.OFFVIS ---
Vital Signs 08/05/24 08:25 Height 5 ft 8 in Weight 157 lb BMI 23.9 Intake Visit Reasons: Newprob-Left elbow pain/limit ROM Intake Note: Emil is a 48 year old right hand dominant male who presents today for a new problem visit with complaints of left Elbow pain that began about a year ago. Patient reports it is painful to bend at the elbow or to lift. He has been taking Tizanidine and Tylenol PRN. Patient states his PCP also prescribed Oxycodone for pain but he has now finished taking this. Patient shares he has a history of right elbow tendonitis and believes this is what is going on with his left elbow. Patient has had effective right elbow steroid injections and would like an injection on the left elbow today. History of distal clavicle excision and sub acromial decompression left shoulder, 11/17/[address] Dias. Allergies codeine [From TYLENOL-CODEINE #3] Adverse Reaction (Intermediate, Verified 08/05/24 08:27) PALPITATIONS tramadol [TRAMADOL] Adverse Reaction (Intermediate, Verified 08/05/24 08:27) PALPITATION/SHAKINESS HPI HPI Newprob-Left elbow pain/limit ROM: Details: Emil is a 48 year old right hand dominant male who presents today for a new problem visit with complaints of left Elbow pain that began about a year ago. Patient reports it is painful to bend at the elbow or to lift. He has been taking Tizanidine and Tylenol PRN. Patient states his PCP also prescribed Oxycodone for pain but he has now finished taking this. Patient shares he has a history of right elbow tendonitis and believes this is what is going on with his left elbow. Patient has had effective right elbow steroid injections and would like an injection on the left elbow today. History of distal clavicle excision and sub acromial decompression left shoulder, 11/17/[address] Dias. [facility] Medical History Pure hypercholesterolemia Cervical spondylosis with radiculopathy Lumbar back pain with radiculopathy affecting right lower extremity Erectile dysfunction Left knee pain Lumbar degenerative disc disease Cancer of upper lobe of right lung (~2019) Smoker Back pain Anxiety Surgical History Hx of colonoscopy Hx of left knee surgery Hx of laminectomy (~05/10/22) Status post shoulder surgery (~11/03/21) Status post partial lobectomy of lung (~07/2020) History of lumbar surgery (~06/17/14) History of surgical removal of lesion Family History Father No problems noted. Mother Hypertension Hyperlipidemia Asthma Stroke Osteoporosis Social History Housing: House Alcohol intake: former Patient Tobacco Use Status: Former Tobacco user Tobacco use type: Cigarette Years Smoked: 15 e-Cigarette/Vaping Use: Never Used Second Hand Smoke Exposure: Yes service: No Current occupational status: employed Current occupational exposures/hazards: No Cognitive needs: No Hearing needs: No Vision needs: Yes Physical Exam Vital Signs: BMI result Body Mass Index 23.9 Extrem Other: Left elbow with tenderness to palpation over the lateral epicondyle. Pain with resisted wrist extension Office Procedures Joint Injection/Aspiration Joint Injection/Aspiration Details: Injected 1 mL of Decadron and 3 mL 1% lidocaine and 3 mL of 0.25% Marcaine. Site was prepped using aseptic technique. Patient tolerated the procedure well. Primary Site: other (Left lateral epicondyle) Approach Used: anterolateral Coding 98451 - Epicondyle Procedure code (CPT) selection complete Assessment & Plan Assessment & Plan (1) Left lateral epicondylitis: Code(s): M77.12 - Lateral epicondylitis, left elbow Category: Medical Plan: Classic left lateral epicondylitis. Injected left lateral epicondyle and gave him a counterforce brace. Follow up 6 weeks if needed. OT would be the next step Coding Level of Care Code Est Pt Level 3 (10301) Diagnoses Left lateral epicondylitis M77.12 CPT Codes Coding - Joint 2: 62726 - Epicondyle ([id number])
== END 2024-08-05 08:58 | disposition home or self-care (01) ==
PROVIDERS: PCP Internal Medicine; Visit Provider Orthopaedic Surgery
DX: M77.12 Lateral epicondylitis, left elbow (principal)
CPT/HCPCS: 20550; 99213

== ENCOUNTER → 2024-08-05 08:21 | Outpatient (BNVA) | payer OTHER, SELFPAY | PROVIDERS: PCP Internal Medicine; Visit Provider Orthopaedic Surgery | DX: M77.12 Lateral epicondylitis, left elbow (principal) | CPT/HCPCS: 20550; 99212; J0665; J1100 ==

== ENCOUNTER 2024-11-27 16:13 | Outpatient (AMB) | payer OTHER, SELFPAY ==
[2024-11-27 16:29] VITALS: BP 122/80; PULSE 95; O2SAT 95; BMI 25.6
--- NOTE | 2024-11-27 16:29 | MHC.PC.OV ---
Vital Signs 11/27/24 16:29 Height 5 ft 8 in Weight 168 lb 4 oz BMI 25.6 BP 122/80 Blood Pressure Location Lt brachial Position Sitting Pulse 95 Pulse Source Pulse Oximeter Pulse Oximetry (%) 95 Oxygen Delivery Method Room Air Intake Visit Reasons: 4 mo follow up Nurse Case Manager Required: No Accompanied by: Self / Same As Patient Allergies codeine [From TYLENOL-CODEINE #3] Adverse Reaction (Intermediate, Verified 11/27/24 16:45) PALPITATIONS tramadol [TRAMADOL] Adverse Reaction (Intermediate, Verified 11/27/24 16:45) PALPITATION/SHAKINESS Medication List - Last Reconciled 11/27/24 by Cam Chao MD tizanidine 6 mg (1.5 x 4 mg) PO TID PRN Tobacco use date assessed: 11/27/24 Dental Screening Dental Screen Date: 11/27/24 Did you have a dental visit in the last 12 months?: No Did you have a dental problem in the last 6 months where you did not have access to dental care?: No Was dental information given to patient?: No HPI 4 mo follow up HPI Details Patient comes in today for his follow up visit States that he feels okay except for increasing anxiety lately Recalls that he used to take some Rx for his anxiety but stopped it a few years ago as he did not feel that he needed it anymore at the time He denies any headaches or dizziness Denies any chest pains, no SOB No nausea/vomiting, no abdominal pain No change in bowel habits noted He continues to complain of increased pain over his lower back, especially with prolonged standing and increased activity and would like to get some Rx for pain refilled He was not able to get his follow up labs and cervical spine x-rays done prior to his appointment today [facility] Medical History (Updated 11/27/24 @ 17:18 by Cam Chao MD) Pure hypercholesterolemia Cervical spondylosis with radiculopathy Lumbar back pain with radiculopathy affecting right lower extremity Erectile dysfunction Left knee pain Lumbar degenerative disc disease Cancer of upper lobe of right lung (~2019) Smoker Back pain Anxiety Surgical History Hx of colonoscopy Hx of left knee surgery Hx of laminectomy (~05/10/22) Status post shoulder surgery (~11/03/21) Status post partial lobectomy of lung (~07/2020) History of lumbar surgery (~06/17/14) History of surgical removal of lesion Family History Father No problems noted. Mother Hypertension Hyperlipidemia Asthma Stroke Osteoporosis Social History Housing: House Alcohol intake: former Patient Tobacco Use Status: Former Tobacco user Tobacco use type: Cigarette Years Smoked: 15 e-Cigarette/Vaping Use: Never Used Second Hand Smoke Exposure: Yes service: No Current occupational status: employed Current occupational exposures/hazards: No Cognitive needs: No Hearing needs: No Vision needs: Yes Questionnaire PHQ-9 Over the last 2 weeks, how often have you been bothered by any of the following problems? 1. Little interest or pleasure in doing things: not at all 2. Feeling down, depressed, or hopeless: not at all 3. Trouble falling or staying asleep, or sleeping too much: not at all 4. Feeling tired or having little energy: not at all 5. Poor appetite or overeating: not at all 6. Feeling bad about yourself - or that you are a failure or have let yourself or your family down: not at all 7. Trouble concentrating on things, such as reading the newspaper or watching television: not at all 8. Moving or speaking so slowly that other people could have noticed. Or the opposite - being so fidgety or restless that you have been moving around a lot more than usual: not at all 9. Thoughts that you would be better off or of hurting yourself in some way: not at all Total score: 0 Depression Screening Interpretation: Negative Depression Screening Done: Yes 27273 - PHQ-9 Billing: Yes Source: Developed by Drs. Hipolito Huitron, Emilia Chisholm, Roman Deng and colleagues, with an educational melissa from [employer]. Thrive Questionnaire Date Thrive assessed: 11/27/24 I am a: Patient What is your living situation today?: I have a steady place to live Within the past 12 months, did the food you bought not last and you didn't have the money to get more?: Never true Within the past 12 months, did you worry whether your food would run out before you got money to buy more?: Never true Do you have trouble paying for medicines?: No Do you have trouble getting transportation to medical appointments?: No Do you have trouble paying your heating and electricity bill?: No Do you have trouble taking care of your child, family member or friend?: No Do you have trouble with day-to-day activities such as bathing, preparing meals, shopping, managing finances, etc.?: No Are you currently unemployed and looking for a job?: No Are you interested in more education?: No Please select the resources that you would like help with: None Currently or been in a relationship where the following occur: No concerns reported THRIVE Score: 0 AUDIT C Alcohol Use Questionnaire (AUDIT-C) 1. How often do you have a drink containing alcohol?: Never 3. How often do you have six or more drinks on one occasion?: Never Total Score: 0 Score Reviewed/Action Taken: Yes EMERSON-7 AMB Questionnaire EMERSON-7 Date EMERSON - 7 assessed: 11/27/24 Feeling nervous, anxious, or on edge: 0 = Not at all Not being able to stop or control worryin = Not at all Worrying too much about different things: 0 = Not at all Trouble relaxin = Not at all Being so restless that it is hard to sit still: 0 = Not at all Becoming easily annoyed or irritable: 0 = Not at all Feeling afraid as if something awful might happen: 0 = Not at all Total EMERSON-7 score (0-4 normal; 5-9 mild; 10-14 moderate; 15-21 severe): 0 Source: Developed by Drs. Hipolito Huitron, Emilia Chisholm, Roman Deng and colleagues, with an educational melissa from [employer]. Review of Systems Const Denies chills, Reports fatigue, Denies fever(s) and Denies headache(s) ENT Denies dysphagia, Denies dizziness, Denies otalgia, Denies headache(s), Reports neck pain (especially on the left side - chronic but increasing lately), Denies odynophagia and Denies sore throat Card Denies chest pain, Denies palpitations and Denies dyspnea Resp Denies chest congestion, Denies cough and Denies dyspnea GI Denies abdominal pain, Denies constipation, Denies dysphagia, Denies heartburn, Denies diarrhea, Denies nausea, Denies odynophagia and Denies vomiting Reports erectile dysfunction (recently), Denies dysuria, Denies nocturia and Denies urinary frequency Musc Reports back pain (chronic), Reports arthralgias (involving multiple joints, especially over his left elbow recently), Denies joint swelling and Reports neck pain (especially on the left side - chronic but increasing lately) Skin/Breast Denies rash Neuro Denies dizziness and Denies headache(s) Psych Reports anxiety (increasing) Endo Reports fatigue and Denies palpitations Physical exam (Primary Care) Vital Signs: Last Vital Signs Pulse 95 11/27/24 16:29 BP 122/80 11/27/24 16:29 Pulse Ox 95 11/27/24 16:29 Oxygen Delivery Method Room Air 11/27/24 16:29 BMI result Body Mass Index 25.6 Tobacco/Smoking Status: Tobacco use Status Tobacco use date assessed 11/27/24 11/27/24 16:34 Patient Tobacco Use Status Former Tobacco user 11/27/24 16:34 Tobacco use type Cigarette 11/27/24 16:34 e-Cigarette/Vaping Use Never Used 11/27/24 16:34 PHQ-9: PHQ-9 Score PHQ-9: Total score 0 11/27/24 16:48 Depression Screening Interpretation: Negative Thrive Assessment: Date of Thrive Assessment Date Thrive assessed 11/27/24 11/27/24 16:34 Currently or been in a relationship where the following occur: No concerns reported Const General: no acute distress and alert HENMT Ears: TM's normal bilaterally and EAC's normal Throat: Yes posterior oropharynx normal and Yes tonsils normal Neck Neck: Yes no lymphadenopathy and Yes supple Thyroid: Thyroid normal Resp Auscultation: clear to auscultation bilaterally, no rales and no wheezes Cardio Rate: regular rate Rhythm: regular rhythm Heart sounds: no murmurs GI Palpation (GI): Soft to palpation and nontender Auscultation: normal bowel sounds General: Yes no CVA tenderness Back/Spine/Pelvis Back: no CVA tenderness Cervical Spine: cervical muscular tenderness (left-sided) and Cervical spine tenderness Thoracic/Lumbar Spine: lumbar spinal tenderness Skin Rashes: no rashes Extrem General: Yes no clubbing, cyanosis or edema Left upper extremity: elbow/forearm Details: tenderness Location: of the lateral epicondyle; no swelling Left lower extremity: knee Details: tenderness Location: of the pre-patellar area; no swelling and ankle Details: tenderness (behind the medial malleolar area); no swelling Coding Level of Care Code Est Pt Level 4 (77913) Diagnoses Degeneration of intervertebral disc of lumbar region with discogenic back pain and lower extremity pain M51.362 Disc-related pain type: discogenic back pain and lower extremity pain Pure hypercholesterolemia E78.00 Cancer of upper lobe of right lung C34.11 Patellofemoral pain syndrome of both knees M22.2X1; M22.2X2 Cervical spondylosis with radiculopathy M47.22 AC joint arthropathy M19.019 Erectile dysfunction, unspecified erectile dysfunction type N52.9 Erectile dysfunction type: unspecified Anxiety F41.9 Additional Codes PHQ-9 - 22793 - PHQ-9 Billing: Yes ([id number]) Assessment & Plan Assessment & Plan (1) Lumbar degenerative disc disease: Comment: S/P diskectomy with interbody fusion L5-S1 with titanium cage and INFUSE (Dr. Acuna and Dr. Green) on 07/01/2014 Code(s): M51.36 - Other intervertebral disc degeneration, lumbar region Category: Medical Qualifiers: Disc-related pain type: discogenic back pain and lower extremity pain Qualified Code(s): M51.362 - Other intervertebral disc degeneration, lumbar region with discogenic back pain and lower extremity pain Plan: Lumbar spine x-rays last done on 06/15/2020 revealed (+) progressive degenerative changes of the lumbosacral spine and stable mechanical fixation at L5-S1 Will send him for repeat lumbar spine x-rays for further evaluation due to his increasing low back pain lately (2) Pure hypercholesterolemia: Code(s): E78.00 - Pure hypercholesterolemia, unspecified Category: Medical Plan: Reinforced low cholesterol diet Will have patient recheck his labs and fasting lipids FIORELLA for follow up (3) Cancer of upper lobe of right lung: Onset Date: ~2019 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 Yost Follow up CT in 6 months, done on 07/29/2021, came out normal/negative - stable findings with no abnormal new lung nodules seen Subsequent follow up exams have also been negative so far His 1 year follow up chest CT done on 02/26/2023 revealed no evidence of disease recurrence; was seen by Dr. Yost back on 03/03/2023 and was reportedly declared 'cancer-free' His most recent chest CT on 04/26/2024 also came out negative for recurrence Follow up with Dr. Yost as scheduled for continuing surveillance (4) Patellofemoral pain syndrome of both knees: Code(s): M22.2X1 - Patellofemoral disorders, right knee; M22.2X2 - Patellofemoral disorders, left knee Category: Medical Plan: X-rays of the left knee back in 11/2020 revealed (+) minimal medial and patellofemoral compartment arthrosis Repeat x-rays of the left knee done in November 2023 revealed similar findings - (+) mild medial compartment left tibiofemoral joint osteoarthritis. He was referred back to physical therapy for both his knee and his lower back last year but he did not pursue these back then Right knee x-rays done back in April 2024 revealed (+) 9 mm ossific density in the intercondylar notch that was not present on his prior x-rays done in 2014 - question loose body Follow up with orthopedics as scheduled (5) Cervical spondylosis with radiculopathy: Code(s): M47.22 - Other spondylosis with radiculopathy, cervical region Category: Medical Plan: S/P left C6-7 foraminotomy with microscopic dissection by Dr. Redman on 05/10/22 Follow up with neurosurgery as scheduled (6) AC joint arthropathy: Comment: S/P distal clavicle excision and subacromial decompression (left shoulder) on 11/03/[address] Dias Code(s): M19.019 - Primary osteoarthritis, unspecified shoulder Category: Medical Plan: MRI of the left shoulder done back in October 2021 revealed supraspinatus tendinosis with distal bursal surface fraying/partial tearing measuring 1.6 x 1.3 cm (AP by ML), and moderate acromioclavicular osteoarthritis Follow up with orthopedics as scheduled (7) Erectile dysfunction: Code(s): N52.9 - Male erectile dysfunction, unspecified Category: Medical Qualifiers: Erectile dysfunction type: unspecified Qualified Code(s): N52.9 - Male erectile dysfunction, unspecified Plan: Continue Sildenafil 50 mg PRN (8) Anxiety: Code(s): F41.9 - Anxiety disorder, unspecified Category: Medical Plan: Will start him on Escitalopram 10 mg QD Plan To return as scheduled in March 2025 for his annual physical examination Orders: Orders XR lumbar spine 2-3V 11/27/24 M54.50 - Low back pain, unspecified Medications: New escitalopram oxalate 10 mg PO DAILY 30 days 30 tabs 3RF anxiety F41.9 - Anxiety disorder, unspecified Refilled oxycodone Take NEEDED ONLY for SEVERE PAIN 5 mg PO Q6-8H PRN 20 tabs 0RF pain M22.2X2 - Patellofemoral disorders, left knee, M51.36 - Other intervertebral disc degeneration, lumbar region ibuprofen Take with food 800 mg PO TID PRN 90 tabs 2RF pain 30 days
--- OUTSIDE RECORDS SUMMARY | 2024-11-27 18:14 | XMS_ITS | Clinical Summary ---
Author Organization [address] [facility] Address [address] [place] [address] Phone Care Team Providers Care Travel Professional Name Role Phone Cam Chao MD Primary Care Provider + [phone] Allergies Active Allergy Reactions Criticality Noted Date Comments Acetaminophen-Codeine Palpitations Low 04/19/2022 Tramadol Palpitations Low 04/19/2022 Medications Medication Sig Dispensed Refills Start Date End Date Status gabapentin (NEURONTIN) 300 mg capsule Take 1 Capsule by mouth 2 times daily. 05/22/2024 Active tiZANidine (ZANAFLEX) 4 mg tablet Take 4 mg by mouth every 6 hours as needed. Active Active Problems Problem Noted Date Diagnosed Date Cervical disc disorder at C6-C7 level with radic ulopathy 04/19/2022 Overview (09/17/2024): Last Assessment & Plan: Patient is 10 days s/p left C6-7 foraminotomy, states his left arm is feeling much better, no longer has any of the preop symptoms that would radiate into the left arm and hand, he is able to use it/lift it better. He describes some residual incisional pain, has been trying to get by with Tylenol, ran out of his oxycodone, feels the Tylenol is not helping him. He denies wound drainage, fever, sweats chills. Mr. Emil Latham can follow-up in the office as needed, all questions answered, patient given note for his Social Security regarding his surgery. I gave him a refill on his oxycodone, patient does not feel he will need another refill after this. He will call with any concerns or questions. Surgical History Surgery Date Site/Laterality Comments BACK SURGERY PROCEDURE: HISTORICAL BACK SURGERY; COMMENT: 2013 KNEE SURGERY Left PROCEDURE: HISTORICAL KNEE SURGERY OTHER SURGICAL HISTORY 05/10/2022 PROCEDURE: SD DOCKERY FACETECTOMY & FORAMOTOMY 1 VRT SGM CERVICAL; COMMENT: Left C6-7 foraminotomy, Dr. Redman Medical History Medical History Date Comments Anxiety state DX:Anxiety state Erectile dysfunction DX:Erectile dysfunction Lung cancer (CMS/HCC) DX:Lung ca ncer (HCC); COMMENT: right upper lobe Pure hypercholesterolemia Cervical spondylosis with radiculopathy Lumbar degenerative disc disease Smoker Social History Tobacco Use Types Packs/Day Years Used Date Smoking Tobacco: Former Cigarettes Q uit: 11/06/2019 Smokeless Tobacco: Never Sex and Gender Information Value Date Recorded Sex Assigned at Not on file Gender Identity Not on file Sexual Orientation Not on file Obstetrics History Last Filed Vital Signs Vital Sign Reading Time Taken Comments Blood Pressure 130/85 05/22/2024 1:59 PM EDT Sit ting L Arm Pulse 87 05/22/2024 1:59 PM EDT Temperature - - Respiratory Rate - - Oxygen Saturation - - Inhaled Oxygen Concentration - - Weight 71.7 kg (158 lb) 05/22/2024 1:59 PM EDT Height 172.7 cm (5' 8 ) 05/22/2024 1:59 PM EDT Body Mass Index 24.02 05/22/2024 1:59 PM EDT Plan of Treatment Health Maintenance Due Date Last Done Comments DTaP,Tdap,and Td Vaccines (1 - Tdap) 1992 Hepatitis B Vaccines (1 of 3 - 19+ 3-dose series) 1992 Cholesterol Screening (Lipid Panel) 10/08/2022 Colorectal Cancer Screening: Colonoscopy 10/08/2022 Depression Screening 10/08/2022 HIV Screening 10/08/2022 Hepatitis C Screening 10/08/2022 Social Influencers of Health Screening 10/08/2022 Zoster Vaccines (1 of 2) 2023 COVID-19 Vaccine (2023-2 5 season) 2024 10/27/2021, 03/21/2021, 02/28/2021 Influenza Vaccine (#1) 2024 HIB Vaccines Aged Out No longer eligi ble based on patient's age to complete this topic HPV Vaccines Aged Out No longer eligi ble based on patient's age to complete this topic Hepatitis A Vaccines Aged Out No long er eligible based on patient's age to complete this topic IPV Vaccines Aged Out No longer eligi ble based on patient's age to complete this topic MMR Vaccines Aged Out No longer eligi ble based on patient's age to complete this topic Meningococcal ACWY Vaccine Aged Out N o longer eligible based on patient's age to complete this topic Pneumococcal Vaccine: Pediatrics (0 to 5 Years) and At-Risk Patients (6 to 64 Years) Aged Out No longer eligible b ased on patient's age to complete this topic RSV Immunization Patients Under 20 months Aged Out No longer eligible b ased on patient's age to complete this topic Varicella Vaccines Aged Out No longer eligible based on patient's age to complete this topic Care Teams Travel Professional Relationship Specialty Start Date End Date Cam Chao MD [address] [place] [address] Dr [address] [place], [place] PCP - General 06/09/15
== END 2024-11-27 17:02 | disposition home or self-care (01) ==
PROVIDERS: PCP Internal Medicine; Visit Provider Internal Medicine
DX: M51.362 Other intervertebral disc degeneration, lumbar region with discogenic back pain and lower extremity pain (principal); E78.00 Pure hypercholesterolemia, unspecified; C34.11 Malignant neoplasm of upper lobe, right bronchus or lung; M22.2X1 Patellofemoral disorders, right knee; M22.2X2 Patellofemoral disorders, left knee; M47.22 Other spondylosis with radiculopathy, cervical region; M19.019 Primary osteoarthritis, unspecified shoulder; N52.9 Male erectile dysfunction, unspecified; F41.9 Anxiety disorder, unspecified

== ENCOUNTER → 2024-11-27 16:13 | Outpatient (BNVA) | payer OTHER, SELFPAY | PROVIDERS: PCP Internal Medicine; Visit Provider Internal Medicine | DX: M51.362 Other intervertebral disc degeneration, lumbar region with discogenic back pain and lower extremity pain (principal); E78.00 Pure hypercholesterolemia, unspecified; C34.11 Malignant neoplasm of upper lobe, right bronchus or lung; M22.2X1 Patellofemoral disorders, right knee; M22.2X2 Patellofemoral disorders, left knee; M47.22 Other spondylosis with radiculopathy, cervical region; M19.012 Primary osteoarthritis, left shoulder; N52.9 Male erectile dysfunction, unspecified; F41.9 Anxiety disorder, unspecified | CPT/HCPCS: 96127 ==

== ENCOUNTER 2024-11-30 08:12 | Outpatient (REF) | payer OTHER, SELFPAY ==
[2024-11-30 08:27] LABS: MANUAL DIFF FLAG NO
[2024-11-30 08:42] LABS: Appearance Urine Clear; Color Urine Yellow; Glucose Urine UA Negative (Negative); Leukocyte Esterase Urine Negative (Negative); Nitrite Urine Negative (Negative); PH 6.5 (5.0-9.0); Specific Gravity - Urine 1.015 (1.005-1.025); Urine Blood Negative (Negative); Urine Ketones Negative (Negative); Urine Protein Negative (Neg-Trace)
[2024-11-30 08:43] LABS: Basophils Absolute Auto 0.1 X10*3/uL (0.0-0.2); Basophils Percent Auto 1.4 % (0-2); Eosinophils Absolute Auto 0.4 X10*3/uL (0.0-0.4); Eosinophils Percent Auto 7.1 % (0-4); Hematocrit 43.4 % (42.0-52.0); Hemoglobin 14.7 g/dl (14.0-18.0); Imm Gran Abs Auto 0.01 X10*3/uL (0.00-0.03); Imm Gran Pct Auto 0.2 % (0.0-0.4); Lymphocytes Absolute Auto 1.8 X10*3/uL (1.2-4.9); Lymphocytes Percent Auto 31.1 % (20-40); Mean Corpuscular HGB Conc 33.9 g/dl (31.0-36.0); Mean Corpuscular Hemoglobin 30.2 pg (27.0-33.0); Mean Corpuscular Volume 89.3 fL (80.0-98.0); Mean Platelet Volume 8.6 fL (9.4-12.4); Monocytes Absolute Auto 0.7 X10*3/uL (0.1-1.2); Monocytes Percent Auto 11.8 % (2-11); Neutrophils Absolute Auto 2.9 x10*3/uL (2.0-8.3); Neutrophils Percent Auto 48.4 % (45-73); Platelet Count 429 X10*3/uL (160-400); Red Blood Count 4.86 X10*6/uL (4.60-5.80); Red Cell Distribution Width 12.8 % (11.0-16.0); White Blood Count 5.9 X10*3/uL (4.8-10.8)
[2024-11-30 09:16] LABS: Alanine Aminotransferase 38 U/L (0-40); Albumin Level 4.6 g/dL (3.5-5.0); Alkaline Phosphatase 57 U/L (39-117); Anion Gap 10 (12-20); Aspartate Amino Transferase 35 U/L (5-37); Bilirubin Total 0.7 mg/dL (0.0-1.0); Blood Urea Nitrogen 12 mg/dL (9-16); Calcium 9.5 mg/dL (8.4-10.2); Carbon Dioxide 27 mmol/L (22-29); Chloride 105 mmol/L (96-108); Cholesterol 248 mg/dL (<200); Estimated Glomerular Filt Rate > 60; Glucose Fasting 88 mg/dL (60-99); HDL Cholesterol 56 mg/dL (>40); LDL Cholesterol Calculated 150 mg/dL (<100); Potassium 4.3 mmol/L (3.3-5.1); Sodium 138 mmol/L (135-145); Total Protein 8.3 g/dL (6.5-8.0); Triglycerides 212 mg/dL (<150)
[2024-11-30 09:36] LABS: TSH reflex Free T4 1.42 uIU/mL (0.32-4.0); Vitamin D 25-OH Total 76.2 ng/mL (>30)
== END 2024-11-30 08:13 | disposition home or self-care (01) ==
LOC: HO.LAB 08:12
PROVIDERS: PCP Internal Medicine; Visit Provider Internal Medicine
DX: E78.00 Pure hypercholesterolemia, unspecified (principal); R30.0 Dysuria; E55.9 Vitamin D deficiency, unspecified; D64.9 Anemia, unspecified
CPT/HCPCS: 36415; 80053; 80061; 81003; 82306; 84443; 85025

== ENCOUNTER 2025-04-01 17:09 | Outpatient (AMB) | payer OTHER, SELFPAY ==
--- NOTE | 2025-04-01 17:14 | A.OFFPC_ITS ---
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 Required: No Accompanied by: Self / Same As Patient Allergies codeine [From TYLENOL-CODEINE #3] Adverse Reaction (Intermediate, Verified 04/01/25 17:27) PALPITATIONS tramadol [TRAMADOL] Adverse Reaction (Intermediate, Verified 04/01/25 17:27) PALPITATION/SHAKINESS Medication List - Last Reconciled 04/01/25 by Cam Chao MD escitalopram oxalate 10 mg PO DAILY 30 days ibuprofen 800 mg PO TID PRN 30 days oxycodone 5 mg PO Q6-8H PRN tizanidine 6 mg (1.5 x 4 mg) PO TID PRN Tobacco use date assessed: 11/27/24 Dental Screening Dental Screen Date: 11/27/24 HPI annual exam HPI Details Patient comes in today for his annual physical examination States that he is still experiencing increased pain over his lower back frequently 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 and anu etimes has to do some heavy lifting although he tries to avoid it as much as he can due to his lower back issues States that his lower back pain would often feel worse at the end of his work day, with pain sometimes radiating down his right leg His insurance denied his request for an MRI last year and he would like to see if this can be revisited States that he is traveling with his to [place] next month and would like to get some Rx for pain to bring with him just in case he needs something stronger for pain relief He needs his Ibuprofen and Tizanidine Rx refilled as well States that he's had to take 2 tablets of his Tizanidine at a time lately just to get some relief from his low back pain He denies any headaches or dizziness Denies any chest pains, no increased SOB No nausea/vomiting, no abdominal pain No change in bowel habits noted He denies any acute urinary symptoms He does not have any follow up labs done recently but did have some labs done back in November 2024 He had his screening colonoscopy last done with Dr. Odonnell a couple of years ago in 2022 and was recommended to get a repeat colonoscopy in 5 to 7 years (~2027) [facility] Medical History Mixed hyperlipidemia Pure hypercholesterolemia Cervical spondylosis with radiculopathy Lumbar back pain with radiculopathy affecting right lower extremity Erectile dysfunction Left knee pain Lumbar degenerative disc disease Cancer of upper lobe of right lung (~2019) Smoker Back pain Anxiety Surgical History (Updated 04/01/25 @ 17:31 by Cam Chao MD) Hx of colonoscopy Hx of left knee surgery Hx of laminectomy (~05/10/22) Status post shoulder surgery (~11/03/21) Status post partial lobectomy of lung (~07/2020) History of lumbar surgery (~06/17/14) History of surgical removal of lesion Family History Father No problems noted. Mother Hypertension Hyperlipidemia Asthma Stroke Osteoporosis Social History Housing: House Alcohol intake: former Patient Tobacco Use Status: Former Tobacco user Tobacco use type: Cigarette Years Smoked: 15 e-Cigarette/Vaping Use: Never Used Second Hand Smoke Exposure: Yes service: No Current occupational status: employed Current occupational exposures/hazards: No Cognitive needs: No Hearing needs: No Vision needs: Yes Questionnaire PHQ-9 Over the last 2 weeks, how often have you been bothered by any of the following problems? 1. Little interest or pleasure in doing things: more than half the days 2. Feeling down, depressed, or hopeless: not at all 3. Trouble falling or staying asleep, or sleeping too much: nearly every day 4. Feeling tired or having little energy: nearly every day 5. Poor appetite or overeating: not at all 6. Feeling bad about yourself - or that you are a failure or have let yourself or your family down: more than half the days 7. Trouble concentrating on things, such as reading the newspaper or watching television: more than half the days 8. Moving or speaking so slowly that other people could have noticed. Or the opposite - being so fidgety or restless that you have been moving around a lot more than usual: more than half the days 9. Thoughts that you would be better off or of hurting yourself in some way: not at all Total score: 14 Depression Screening Interpretation: Positive Depression Screening Follow-up: Existing condition and In treatment Depression Screening Done: Yes 78300 - PHQ-9 Billing: Yes Source: Developed by Drs. Hipolito Huitron, Emilia Chisholm, Roman Deng and colleagues, with an educational melissa from [employer]. Thrive Questionnaire Date Thrive assessed: 04/01/25 I am a: Patient What is your living situation today?: I have a steady place to live Within the past 12 months, did the food you bought not last and you didn't have the money to get more?: Never true Within the past 12 months, did you worry whether your food would run out before you got money to buy more?: Never true Do you have trouble paying for medicines?: Yes Do you have trouble getting transportation to medical appointments?: No Do you have trouble paying your heating and electricity bill?: No Do you have trouble taking care of your child, family member or friend?: No Do you have trouble with day-to-day activities such as bathing, preparing meals, shopping, managing finances, etc.?: Yes Are you currently unemployed and looking for a job?: No Are you interested in more education?: No Please select the resources that you would like help with: None Currently or been in a relationship where the following occur: I choose not to answer THRIVE Score: 0 AUDIT C Alcohol Use Questionnaire (AUDIT-C) 1. How often do you have a drink containing alcohol?: Never 3. How often do you have six or more drinks on one occasion?: Never Total Score: 0 Score Reviewed/Action Taken: Yes EMERSON-7 AMB Questionnaire EMERSON-7 Date EMERSON - 7 assessed: 04/01/25 Feeling nervous, anxious, or on edge: 2 = More than half the days Not being able to stop or control worryin = Nearly every day Worrying too much about different things: 2 = More than half the days Trouble relaxin = More than half the days Being so restless that it is hard to sit still: 1 = Several days Becoming easily annoyed or irritable: 2 = More than half the days Feeling afraid as if something awful might happen: 2 = More than half the days Total EMERSON-7 score (0-4 normal; 5-9 mild; 10-14 moderate; 15-21 severe): 14 Source: Developed by Drs. Hipolito Huitron, Emilia Chisholm, Roman Deng and colleagues, with an educational melissa from [employer]. EMERSON-7 Assessment Billing EMERSON-7 Assessment Tool: EMERSON-7 Assessment 84613 Review of Systems Const Denies chills, Denies fatigue, Denies fever(s), Denies headache(s), Denies malaise and Denies weakness Eyes Denies blurry vision, Denies change in vision, Denies irritation and Denies it edita eyes ENT Denies dysphagia, Denies dizziness, Denies otalgia, Denies headache(s), Denies nasal congestion, Denies neck pain, Denies odynophagia and Denies sore throat Card Denies rapid heart rate, Denies irregular heart rhythm, Denies palpitations and Denies dyspnea Resp Denies chest congestion, Denies cough, Denies dyspnea and Denies wheezing GI Denies abdominal pain, Denies bloating, Denies constipation, Denies dysphagia, Denies heartburn, Denies diarrhea, Denies nausea, Denies odynophagia and Denies vomiting Denies hematuria, Denies difficulty urinating, Denies dysuria, Denies urinary frequency and Denies urinary urgency Musc Reports back pain (over the lower back - chronic), Reports arthralgias (in the left knee), Denies joint swelling, Denies muscle weakness, Denies neck pain and Reports radiating pain into limb (down the right leg at times) Skin/Breast Denies change in pigmentation, Denies lesions, Denies rash and Denies unusual bruising Neuro Denies dizziness, Denies headache(s), Denies paresthesias and Denies weakness Psych Reports anxiety and Reports depression Endo Denies fatigue and Denies palpitations Aller/Immun Denies itchy eyes and Denies wheezing Physical exam (Primary Care) Vital Signs: Last Vital Signs Temp 97.3 F 04/01/25 17:18 Pulse 107 H 04/01/25 17:18 BP 132/86 04/01/25 17:18 Pulse Ox 95 04/01/25 17:18 Oxygen Delivery Method Room Air 04/01/25 17:18 BMI result Body Mass Index 24.2 Tobacco/Smoking Status: Tobacco use Status Tobacco use date assessed 11/27/24 04/01/25 17:18 Patient Tobacco Use Status Former Tobacco user 04/01/25 17:18 Tobacco use type Cigarette 04/01/25 17:18 e-Cigarette/Vaping Use Never Used 04/01/25 17:18 PHQ-9: PHQ-9 Score PHQ-9: Total score 14 04/01/25 17:31 Depression Screening Interpretation: Positive Depression Screening Follow-up: Existing condition and In treatment Thrive Assessment: Date of Thrive Assessment Date Thrive assessed 04/01/25 04/01/25 17:18 Currently or been in a relationship where the following occur: I choose not to answer Const General: no acute distress, alert and awake Orientation/consciousness: patient oriented x3 HENMT Head: Yes normocephalic and Yes atraumatic Ears: external ears normal, TM's normal bilaterally and EAC's normal General nose exam: No nasal discharge present Face and sinus: Yes normal facial exam and Yes sinuses nontender Teeth and gingiva: dentition normal Throat: Yes posterior oropharynx normal and Yes tonsils normal (no TP congestion) Eyes Eyelids: Yes eyelids normal Conjunctivae: conjunctivae normal Pupils: Equal, round and reactive pupils present EOM: EOMs intact bilaterally Neck Neck: Yes no lymphadenopathy and Yes tender Thyroid: Thyroid normal Resp Auscultation: clear to auscultation bilaterally, no rales and no wheezes Cardio Rate: regular rate Rhythm: regular rhythm Heart sounds: no murmurs GI Palpation (GI): Soft to palpation, nontender and No hepatosplenomegaly present Auscultation: normal bowel sounds General: Yes no CVA tenderness Back/Spine/Pelvis Back: no CVA tenderness Cervical Spine: Cervical spine tenderness Thoracic/Lumbar Spine: lumbar spinal tenderness Skin Lesions: no lesions Rashes: no rashes Neuro General: patient oriented x3, moves all extremities, no focal motor deficits and CN's II-XI intact bilaterally Cranial nerves: Yes Equal, round and reactive pupils present Cognition (Neuro): normal cognition Gait exam (Neuro): Normal gait present Extrem General: Yes no clubbing, cyanosis or edema Left lower extremity: knee Details: tenderness Location: of the medial joint line; no swelling Results Reviewed Results Reviewed: Laboratory Tests 11/30/24 11/30/24 08:23 08:26 WBC 5.9 Hgb 14.7 Hct 43.4 Plt Count 429 H Sodium 138 Potassium 4.3 Creatinine 0.80 Estimated GFR > 60 Fasting Glucose 88 Calcium 9.5 AST 35 ALT 38 Triglycerides 212 H Cholesterol 248 H LDL Cholesterol, Calc 150 H HDL Cholesterol 56 25-OH Vitamin D Total 76.2 TSH 1.42 Ur Specific [place] 1.015 Urine Protein Negative Urine Glucose (UA) Negative Urine Blood Negative Urine Nitrite Negative Ur Leukocyte Esterase Negative Coding Level of Care Code Est Pt Prev Care 40-64y(79369) Diagnoses Annual physical exam Z00.00 Mixed hyperlipidemia E78.2 Cancer of upper lobe of right lung C34.11 Patellofemoral pain syndrome of both knees M22.2X1; M22.2X2 Degeneration of intervertebral disc of lumbar region with discogenic back pain and lower extremity pain M51.362 Disc-related pain type: discogenic back pain and lower extremity pain Cervical spondylosis with radiculopathy M47.22 AC joint arthropathy M19.019 Erectile dysfunction, unspecified erectile dysfunction type N52.9 Erectile dysfunction type: unspecified Anxiety F41.9 Additional Codes EMERSON-7 Assessment Billing - EMERSON-7 Assessment Tool: EMERSON-7 Assessment [id number] ([id number]) PHQ-9 - 20592 - PHQ-9 Billing: Yes ([id number]) Assessment & Plan Assessment & Plan (1) Annual physical exam: Code(s): Z00.00 - Encounter for general adult medical examination without abnormal findings Category: Medical Plan: Results of his labs done back in November 2024 reviewed and discussed with patient He had his screening colonoscopy last done with Dr. 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 Yost Follow up CT in 6 months, done on 07/29/2021, came out normal/negative - stable findings with no abnormal new lung nodules seen Subsequent follow up exams have also been negative so far His follow up chest CT done on 02/26/2023 revealed no evidence of disease recurrence; was seen by Dr. Yost back on 03/03/2023 and was reportedly declared 'cancer-free' His most recent chest CT on 04/26/2024 also came out negative for recurrence Follow up with Dr. Yost as scheduled for continuing surveillance (4) Patellofemoral pain syndrome of both knees: Code(s): M22.2X1 - Patellofemoral disorders, right knee; M22.2X2 - Patellofemoral disorders, left knee Category: Medical Plan: X-rays of the left knee back in 11/2020 revealed (+) minimal medial and patellofemoral compartment arthrosis Repeat x-rays of the left knee done in November 2023 revealed similar findings - (+) mild medial compartment left tibiofemoral joint osteoarthritis. He was referred back to physical therapy for both his knee and his lower back last year but he did not pursue this back then Right knee x-rays done back in April 2024 revealed (+) 9 mm ossific density in the intercondylar notch that was not present on his prior x-rays done in 2014 - question loose body Follow up with orthopedics as scheduled (5) Lumbar degenerative disc disease: Comment: S/P diskectomy with interbody fusion L5-S1 with titanium cage and INFUSE (Dr. Acuna and Dr. Green) on 07/01/2014 Code(s): M51.36 - Other intervertebral disc degeneration, lumbar region Category: Medical Qualifiers: Disc-related pain type: discogenic back pain and lower extremity pain Qualified Code(s): M51.362 - Other intervertebral disc degeneration, lumbar region with discogenic back pain and lower extremity pain Plan: Reinforced activity and weight-lifting restrictions to avoid aggravating his low back pain Lumbar spine x-rays last done on 06/15/2020 revealed (+) progressive degenerative changes of the lumbosacral spine and stable mechanical fixation at L5-S1 Lumbar spine MRI was denied by patient's insurance a couple of years ago Patient is currently requesting to have an MRI of the lumbar spine ordered again due to his increasing low back pain and recurrent radiation of pain down his right leg - MRI of the lumbar spine ordered Continue Ibuprofen 800 mg TID PRN, Tizanidine 4 mg TID PRN and Oxycodone 5 mg Q 6 to 8 hours PRN #20 (Rx refilled) (6) Cervical spondylosis with radiculopathy: Code(s): M47.22 - Other spondylosis with radiculopathy, cervical region Category: Medical Plan: S/P left C6-7 foraminotomy with microscopic dissection by Dr. Redman on 05/10/22 Follow up with neurosurgery as scheduled (7) AC joint arthropathy: Comment: S/P distal clavicle excision and subacromial decompression (left shoulder) on 11/03/[address] Dias Code(s): M19.019 - Primary osteoarthritis, unspecified shoulder Category: Medical Plan: MRI of the left shoulder done back in October 2021 revealed supraspinatus tendinosis with distal bursal surface fraying/partial tearing measuring 1.6 x 1.3 cm (AP by ML), and moderate acromioclavicular osteoarthritis Follow up with orthopedics as scheduled (8) Erectile dysfunction: Code(s): N52.9 - Male erectile dysfunction, unspecified Category: Medical Qualifiers: Erectile dysfunction type: unspecified Qualified Code(s): N52.9 - Male erectile dysfunction, unspecified Plan: Continue Sildenafil 50 mg PRN (9) Anxiety: Code(s): F41.9 - Anxiety disorder, unspecified Category: Medical Plan: Continue Escitalopram 10 mg QD Plan Follow up in 4 months Orders: Orders TSH reflex Free T4 4 Months E78.00 - Pure hypercholesterolemia, unspecified, Z00.00 - Encounter for general adult medical examination without abnormal findings UA CC w/rflx Micro + Cult 4 Months R30.0 - Dysuria, Z00.00 - Encounter for general adult medical examination without abnormal findings Vitamin D 25-OH Total 4 Months E55.9 - Vitamin D deficiency, unspecified, Z00.00 - Encounter for general adult medical examination without abnormal findings Prostate Specific Antigen 4 Months N40.0 - Benign prostatic hyperplasia without lower urinary tract symptoms, Z00.00 - Encounter for general adult medical examination without abnormal findings Complete Blood Count Auto Diff 4 Months D64.9 - Anemia, unspecified, Z00.00 - Encounter for general adult medical examination without abnormal findings Comprehensive [place]. Panel Fast 4 Months E78.00 - Pure hypercholesterolemia, unspecified, Z00.00 - Encounter for general adult medical examination without abnormal findings Lipid Panel 4 Months E78.00 - Pure hypercholesterolemia, unspecified, Z00.00 - Encounter for general adult medical examination without abnormal findings MR lumbar spine wo/w con Today M51.362 - Other intervertebral disc degeneration, lumbar region with discogenic back pain and lower extremity pain, M54.16 - Radiculopathy, lumbar region Medications: Changed From tizanidine 6 mg (1.5 x 4 mg) PO TID PRN 135 tabs 0RF for muscle spasm M62.838 - Other muscle spasm To tizanidine 4 mg PO TID 30 days PRN 90 tabs 0RF for muscle spasm M62.838 - Other muscle spasm Refilled ibuprofen Take with food 800 mg PO TID 30 days PRN 90 tabs 2RF pain oxycodone Take NEEDED ONLY for SEVERE PAIN 5 mg PO Q6-8H PRN 20 tabs 0RF pain M22.2X2 - Patellofemoral disorders, left knee, M51.36 - Other intervertebral disc degeneration, lumbar region
[2025-04-01 17:18] VITALS: BP 132/86; PULSE 107; TEMP 36.3; O2SAT 95; BMI 24.2
== END 2025-04-01 17:40 | disposition home or self-care (01) ==
LOC: HO.HMCH 17:10
PROVIDERS: PCP Internal Medicine; Visit Provider Internal Medicine
DX: Z00.00 Encounter for general adult medical examination without abnormal findings (principal); E78.2 Mixed hyperlipidemia; C34.11 Malignant neoplasm of upper lobe, right bronchus or lung; M22.2X1 Patellofemoral disorders, right knee; M22.2X2 Patellofemoral disorders, left knee; M51.362 Other intervertebral disc degeneration, lumbar region with discogenic back pain and lower extremity pain; M47.22 Other spondylosis with radiculopathy, cervical region; M19.019 Primary osteoarthritis, unspecified shoulder; N52.9 Male erectile dysfunction, unspecified; F41.9 Anxiety disorder, unspecified

== ENCOUNTER → 2025-04-01 17:09 | Outpatient (BNVA) | payer OTHER, SELFPAY | PROVIDERS: PCP Internal Medicine; Visit Provider Internal Medicine | DX: Z00.01 Encounter for general adult medical examination with abnormal findings (principal); E78.2 Mixed hyperlipidemia; C34.11 Malignant neoplasm of upper lobe, right bronchus or lung; M22.2X1 Patellofemoral disorders, right knee; M22.2X2 Patellofemoral disorders, left knee; M51.362 Other intervertebral disc degeneration, lumbar region with discogenic back pain and lower extremity pain; M47.22 Other spondylosis with radiculopathy, cervical region; M19.019 Primary osteoarthritis, unspecified shoulder; N52.9 Male erectile dysfunction, unspecified; F41.9 Anxiety disorder, unspecified; E78.00 Pure hypercholesterolemia, unspecified; R30.0 Dysuria; E55.9 Vitamin D deficiency, unspecified; N40.0 Benign prostatic hyperplasia without lower urinary tract symptoms; D64.9 Anemia, unspecified | CPT/HCPCS: 96127 ==

== ENCOUNTER 2025-04-25 17:42 | Outpatient (REF) | payer OTHER, SELFPAY ==
--- NOTE | ~2025-04-25 | MR_ITS ---
CLINICAL HISTORY: M54.16 - Radiculopathy, lumbar region --- Additional Notes or Special Instructions: S P lumbar spine fusion in 2014 MR lumbar spine without gadolinium Comparison: None Findings: Mild susceptibility artifact from discectomy and intervertebral grafting at L5-S1. Mild discogenic marrow changes at L4-5. Normal vertebral body height. No acute compression fracture. Minute retrolisthesis of L1 and L2. Otherwise normal alignment. No focal abnormality of the T11-12 or T12-L1 discs. L1-2: Left-sided facet arthritis. Otherwise normal disc level. Patent L1 foramina. L2-3: Disc desiccation and broad-based disc osteophyte complex eccentric laterally to the right. Fissuring of the posterior annulus. Cgksj-sqywvqj-tlil-left lateral recess stenosis and mild central canal stenosis. Patent L2 foramina. L3-4: Disc osteophyte complex and superimposed inferiorly directed central disc protrusion. Slight facet arthritis. Lateral recess and mild central canal stenosis. Patent L3 foramina. L4-5: Disc osteophyte complex and bilateral facet arthritis. Lateral recess stenosis and mild central canal stenosis. Mild effacement of the L4 foramina greater to the right without apparent mass effect on the L4 nerve roots. L5-S1: No evidence of recurrent mass effect on the thecal sac postoperatively. Patent L5 foramina. Conus terminating T12-L1. Mild clumping of the nerve roots may reflect mild arachnoiditis. No acute appearing abnormality of the paraspinal soft tissues. IMPRESSION: Degenerative changes L2-3 through L4-5. [id number]-[id number]-[id number]-left lateral recess stenosis at L2-3 with mild narrowing right L 2 foramen. No apparent mass effect on the L2 nerve root. Lateral recess and mild central canal stenosis at L3-4. Lateral recess and central canal stenosis at L4-5. Facet arthritis and narrowing of the L4 foramina without apparent mass effect. Postoperative L5-S1 level without mass effect on the thecal sac or S1 nerve roots. This document has been electronically signed by: Ryan Joyce MD on 04/28/2025 08:46:58
--- OUTSIDE RECORDS SUMMARY | 2025-04-25 18:04 | XMS_ITS | Clinical Summary ---
Author Organization [address] [facility] Address [address] [place] [address] Phone Care Team Providers Care Cardiology Technician Name Role Phone Cam Chao MD Primary Care Provider + [phone] Allergies Active Allergy Reactions Criticality Noted Date Comments Acetaminophen-Codeine Palpitations Low 04/19/2022 Tramadol Palpitations Low 04/19/2022 Medications gabapentin (NEURONTIN) 300 mg capsule Take 1 [...] KNEE SURGERY OTHER SURGICAL HISTORY 05/10/2022 PROCEDURE: VT DOCKERY FACETECTOMY & FORAMOTOMY 1 VRT SGM CERVICAL; COMMENT: Left C6-7 foraminotomy, Dr. Redman Medical History Medical History Date Comments Anxiety state DX:Anxiety state Erectile dysfunction DX:Erectile dysfunction Lung cancer (CMS/HCC V24, CMS/HCC V28) DX:Lung cancer (HCC); COMMENT: right upper lobe Pure hypercholesterolemia Cervical spondylosis with radiculopathy Lumbar degenerative disc disease Smoker Social History Tobacco Use Types Packs/Day Years Used Date Smoking Tobacco: Former Cigarettes Q uit: 11/06/2019 Smokeless Tobacco: Never Sex and Gender Information Value Date Recorded Sex Assigned at Not on file Legal Sex Male 7:33 PM EST Gender Identity Not on file Sexual Orientation [...] 05/22/2024 1:59 PM EDT Plan of Treatment Upcoming Encounters Date Type Department Care Team (Late st Contact Info) Description 05/12/2025 1:30 PM EDT Appointment [facility] CT Scan [address] [place] [address] Health Maintenance Due Date Last Done Comments DTaP,Tdap,and Td Vaccines (1 - Tdap) 1992 Hepatitis B Vaccines (1 of 3 - 19+ 3-dose series) 1992 Zoster Vaccines (1 of 2) 1992 Cholesterol Screening (Lipid Panel) 10/08/2022 Colorectal Cancer Screening: Colonoscopy 10/08/2022 Depression Screening 10/08/2022 HIV Screening 10/08/2022 Hepatitis C Screening 10/08/2022 Social Influencers of Health Screening 10/08/2022 Pneumococcal Vaccine: 50+ Years (1 of 1 - PCV) 2023 COVID-19 Vaccine (4 - 2023-2 5 season) 2024 10/27/2021, 03/21/2021, 02/28/2021 Influenza Vaccine (Season Ended) 2025 HIB Vaccines Aged Out No longer eligi [...] patient's age to complete this topic Meningococcal B Vaccine Aged Out No l onger eligible based on patient's age to complete [...] on patient's age to complete this topic Insurance [facility] Care Teams Cardiology Technician Relationship Specialty Start Date End Date Cam Chao MD [address] [place] [address] [address] DAVID Jensen PCP - General 06/09/15
== END 2025-04-25 17:43 | disposition home or self-care (01) ==
LOC: HO.MRI 17:42
PROVIDERS: PCP Internal Medicine; Visit Provider Internal Medicine
DX: M54.16 Radiculopathy, lumbar region (principal); M51.362 Other intervertebral disc degeneration, lumbar region with discogenic back pain and lower extremity pain; Z98.1 Arthrodesis status
CPT/HCPCS: 72148

== ENCOUNTER → 2025-04-25 18:06 | Outpatient (BNV) | payer OTHER, SELFPAY | PROVIDERS: PCP Internal Medicine; Visit Provider Radiology Diagnostic Radiology | DX: M51.369 Other intervertebral disc degeneration, lumbar region without mention of lumbar back pain or lower extremity pain (principal); M48.061 Spinal stenosis, lumbar region without neurogenic claudication | CPT/HCPCS: 72148 ==

== ENCOUNTER 2025-07-28 16:50 | Outpatient (AMB) | payer OTHER, SELFPAY ==
[2025-07-28 16:57] VITALS: BP 120/80; PULSE 108; O2SAT 97; BMI 24.3
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
--- OUTSIDE RECORDS SUMMARY | 2025-07-28 18:23 | XMS_ITS | Clinical Summary ---
Author Organization [address] [facility] Address [address] [place] [address] Phone Care Team Providers Care Scraper Hand Name Role Phone Cam Chao MD Primary Care Provider + [phone] Allergies Active Allergy Reactions Criticality Noted Date [...] will call with any concerns or questions. Encounters Date Type Department Care Team Description 07/15/2025 4:14 PM EDT - 07/15/2025 11:59 PM EDT Hospital Encounter [facility] CT Scan [address] [place] [address] History of lung cancer Discharge Disposition: Home or Self Care from Last 3 Months Surgical History Surgery Date Site/Laterality Comments BACK SURGERY PROCEDURE: HISTORICAL BACK SURGERY; COMMENT: 2013 KNEE SURGERY Left PROCEDURE: HISTORICAL KNEE SURGERY OTHER SURGICAL HISTORY 05/10/2022 PROCEDURE: TX DOCKERY FACETECTOMY & FORAMOTOMY 1 VRT SGM [...] Care Team (Late st Contact Info) Description 08/06/2025 10:30 AM EDT Office Visit Thoracic Surgery - [place] [address] [facility] [address] [place] [id number] [place], [place] [address] [address] Health Maintenance Due Date Last Done Comments DTaP,Tdap,and Td Vaccines (1 - Tdap) 1992 Hepatitis B Vaccines (1 of 3 - 19+ 3-dose series) 1992 Zoster Vaccines (1 of 2) 1992 Cholesterol Screening (Lipid Panel) 10/08/2022 Colorectal Cancer Screening: Colonoscopy 10/08/2022 HIV Screening 10/08/2022 Hepatitis C Screening 10/08/2022 Social Influencers of Health Screening 10/08/2022 Pneumococcal Vaccine: 50+ Years (1 of 1 - PCV) 2023 Depression Screening 11/06/2024 COVID-19 Vaccine (4 - 2024-2 6 season) 2025 10/27/2021, 03/21/2021, 02/28/2021 Influenza Vaccine (#1) 2025 RSV Immunization Adult Patients (1 - 1-dose 75+ series) 2048 HIB Vaccines Aged Out No longer eligi [...] on patient's age to complete this topic Procedures Procedure Name Priority Date/Time Associated Diagnosis Comments CT CHEST WO CONTRAST Routine 07/15/2025 4:21 PM EDT History of lung cancer from Last 3 Months Results * CT Chest wo Contrast (07/15/2025 4:21 PM EDT) Anatomical Region Laterality Modality Body Computed Tomogra phy 07/17/2025 3:07 PM EDT Impressions 07/17/2025 3:27 PM EDT Right upper lobectomy. Stable small left lower lobe pulmonary nodule. -------- FINAL REPORT -------- Dictated By: Heron Hare Dictated Date: 07/17/2025 15:07 ET Assigned Physician: Heron Hare Reviewed and Electronically Signed By: Heron Hare Signed Date: 07/17/2025 15:27 ET Workstation ID: [id number] Transcribed By: Self Edit Transcribed Date: 07/17/2025 15:07 ET Narrative 07/17/2025 3:27 PM EDT PROCEDURE: CT of the chest without intravenous contrast. TECHNIQUE: CT of the chest without intravenous contrast administration. Coronal and sagittal reformats and MIP reconstructions were created. Dose length product: 183 mGy-cm. HISTORY: history of lung cancer, s/p RUL lobectomy 2019 COMPARISON: FINDINGS: LUNGS/PLEURA: Right upper lobectomy. Mild scarring at the left lung apex. There are a few small foci of segmental bronchial mucus plugging in the lingula. Stable 4 mm nodule in the anterior left lower lobe, series 4 image 145. No pleural effusion or pneumothorax. MEDIASTINUM/FARAZ: No mediastinal mass or lymphadenopathy. No appreciable hilar lymphadenopathy on limited noncontrast evaluation. VASCULATURE: Normal caliber pulmonary arteries. Bovine arch configuration. CARDIAC: Normal heart size. No coronary artery calcification. CHEST WALL: No axillary or supraclavicular lymphadenopathy. LIMITED ABDOMEN: Unremarkable. BONES: Mild degenerative changes of the spine. Procedure Note Heron Hare MD - 07/17/2025 PROCEDURE: CT of the chest without intravenous contrast. TECHNIQUE: CT of the chest without intravenous contrast administration.Coronal and sagittal reformats and MIP reconstructions were created. Dose length product: 183 mGy-cm. HISTORY: history of lung cancer, s/p RUL lobectomy 2019 COMPARISON: FINDINGS: LUNGS/PLEURA: Right upper lobectomy. Mild scarring at the left lung apex.There are a few small foci of segmental bronchial mucus plugging in thelingula. Stable 4 mm nodule in the anterior left lower lobe, series 4image 145. No pleural effusion or pneumothorax. MEDIASTINUM/FARAZ: No mediastinal mass or lymphadenopathy. No appreciablehilar lymphadenopathy on limited noncontrast evaluation. VASCULATURE: Normal caliber pulmonary arteries. Bovine archconfiguration. CARDIAC: Normal heart size. No coronary artery calcification. CHEST WALL: No axillary or supraclavicular lymphadenopathy. LIMITED ABDOMEN: Unremarkable. BONES: Mild degenerative changes of the spine. IMPRESSION: Right upper lobectomy. Stable small left lower lobe pulmonary nodule. -------- FINAL REPORT -------- Dictated By: Heron Hare Dictated Date: 07/17/2025 15:07 ET Assigned Physician: Heron Hare Reviewed and Electronically Signed By: Heron Hare Signed Date: 07/17/2025 15:27 ET Workstation ID: [id number] Transcribed By: Self Edit Transcribed Date: 07/17/2025 15:07 ET Mikaela De Jesus COIL BINDER IMG CT PROCEDURES Final Res ult from Last 3 Months Insurance [facility] Care Teams Scraper Hand Relationship Specialty Start Date End Date Cam Chao MD [address] [place] [address] [address] [place], [place] PCP - General 06/09/15
== END 2025-07-28 17:30 | disposition home or self-care (01) ==
LOC: HO.HMCH 16:51
PROVIDERS: PCP Internal Medicine; Visit Provider Internal Medicine
DX: E78.2 Mixed hyperlipidemia (principal); C34.11 Malignant neoplasm of upper lobe, right bronchus or lung; M22.2X1 Patellofemoral disorders, right knee; M22.2X2 Patellofemoral disorders, left knee; M51.362 Other intervertebral disc degeneration, lumbar region with discogenic back pain and lower extremity pain; M47.22 Other spondylosis with radiculopathy, cervical region; M19.019 Primary osteoarthritis, unspecified shoulder; R20.0 Anesthesia of skin; N52.9 Male erectile dysfunction, unspecified; F41.9 Anxiety disorder, unspecified

== ENCOUNTER 2025-08-25 08:41 | Outpatient (REF) | payer OTHER, SELFPAY ==
--- NOTE | ~2025-08-25 | XR_ITS ---
EXAMINATION: XR LUMBOSACRAL SPINE CLINICAL INFORMATION: M54.50 - Low back pain, unspecified COMPARISON: June 15, 2020. Correlated to MRI dated April 25, 2025. TECHNIQUE: AP and lateral views FINDINGS: Metallic intervertebral body disc spacer placement at L5-S1. Multilevel marginal osteophyte formation and endplate sclerosis and decreased intervertebral disc height throughout the axial skeleton pronounced at L4-5 and to a lesser extent L2-3 and L3-4 levels. 10% volume loss of the superior endplate of T12, similar since prior exam. No lytic or blastic lesions. XR/XR lumbar spine 2-3V IMPRESSION: Multilevel thoracolumbar spondylosis, worsening since prior exam. Electronically signed by: Mal Louis MD 08/25/2025 09:29 AM EDT
--- OUTSIDE RECORDS SUMMARY | 2025-08-25 09:39 | XMS_ITS | Clinical Summary ---
Author Organization [address] [facility] Address [address] [place] [address] Phone Care Team Providers Care Accounting Teacher Name Role Phone Cam Chao MD Primary Care Provider + [phone] Allergies Active Allergy Reactions Criticality Noted Date Comments Acetaminophen-Codeine Palpitations Low 04/19/2022 Tramadol Palpitations Low 04/19/2022 Medications gabapentin (NEURONTIN) 300 mg capsule Take 1 Capsule by mouth 2 times daily. 05/22/2024 Active tiZANidine (ZANAFLEX) 4 mg tablet Take 4 mg by mouth every 6 hours as needed. Active Active Problems Problem Noted Date Diagnosed Date History of lung cancer 08/09/2025 Cervical disc disorder at C6-C7 level with [...] Encounters Date Type Department Care Team Description 08/06/2025 Telephone Lung Screening Program - [place] [address] [facility] [address] [place] [address] Kimberly Chisholm [place] 07/15/2025 4:14 PM EDT - 07/15/2025 11:59 PM EDT Hospital Encounter [facility] Scan [address] [place] [id number] History of lung cancer Discharge Disposition: Home or Self Care from Last 3 Months Surgical History Surgery Date Site/Laterality Comments BACK SURGERY PROCEDURE: HISTORICAL BACK SURGERY; COMMENT: 2013 KNEE SURGERY Left PROCEDURE: HISTORICAL KNEE SURGERY OTHER SURGICAL HISTORY 05/10/2022 PROCEDURE: [place] DOCKERY FACETECTOMY & FORAMOTOMY 1 VRT SGM [...] Care Team (Late st Contact Info) Description 08/27/2025 3:30 PM EDT Office Visit Thoracic Surgery - [place] [address] [facility] [address] [place] [address] Brooks Harmon, CONSUELO [address] [place] [address] [place] [address] Health Maintenance Due Date Last Done Comments Colorectal Cancer Screening: Colonoscopy 1973 DTaP,Tdap,and Td Vaccines (1 - Tdap) 1992 Hepatitis B Vaccines (1 of 3 - 19+ 3-dose series) 1992 Zoster Vaccines (1 of 2) 1992 Cholesterol Screening (Lipid Panel) 10/08/2022 HIV Screening 10/08/2022 Hepatitis C Screening [...] Signed Date: 07/17/2025 15:27 ET Workstation ID: [id number] Transcribed By: Self Edit Transcribed Date: 07/17/2025 [...] Signed Date: 07/17/2025 15:27 ET Workstation ID: [id number] Transcribed By: Self Edit Transcribed Date: 07/17/2025 15:07 ET Mikaela De Jesus NP IMG CT PROCEDURES Final Res ult from Last 3 Months Insurance [facility] Care Teams Accounting Teacher Relationship Specialty Start Date End Date Cam Chao MD [address] [place] [address] Dr [address] DAVID Jensen PCP - General 06/09/15
== END 2025-08-25 08:42 | disposition home or self-care (01) ==
LOC: HO.XRAY 08:41
PROVIDERS: PCP Internal Medicine; Visit Provider Internal Medicine
DX: M54.50 Low back pain, unspecified (principal)
CPT/HCPCS: 72100

== ENCOUNTER → 2025-08-25 08:51 | Outpatient (BNV) | payer OTHER, SELFPAY | PROVIDERS: PCP Internal Medicine; Visit Provider Radiology Diagnostic Radiology | DX: M47.816 Spondylosis without myelopathy or radiculopathy, lumbar region (principal) | CPT/HCPCS: 72100 ==